=== PATIENT | male | born 1960 | race Caucasian/White ===

== ENCOUNTER 2018-02-28 01:43 | Inpatient (IN) | payer SELFPAY ==
[~2018-02-28] VITALS: Ht 172.7 cm; Wt 87.5 kg
[2018-02-28] VITALS (34 sets, daily range): BP systolic 133–194; BP diastolic 20–116; PULSE 20–176; RESP 14–29; TEMP 97.5–99.1; O2SAT 91–99
[2018-02-28] MEDS ORDERED: SODIUM CHLORIDE 0.9% FLUSH 10 ML FLUSH IV FLUSH PRN ×2 (02:00→03:30)
[2018-02-28] MEDS ORDERED: DILTIAZEM INJ 125 MG in SODIUM CHLORIDE 0.9% INJ 100 ML IV PRN (02:00)
[2018-02-28] MEDS ORDERED: SODIUM CHLORIDE 0.9% FLUSH 10 ML FLUSH IVF PRN (02:00)
[2018-02-28] MEDS ORDERED: DILTIAZEM HCL 25 MG/5 ML VIAL IV ONE (02:00)
[2018-02-28 02:13] LABS: AUTOMATED NEUTROPHIL # 6.5 TH/MM3 (1.8-7.7); BASOPHIL # 0.2 TH/MM3 (0-0.2); BASOPHIL % 1.6 % (0.0-2.0); EOSINOPHIL # 0.6 TH/MM3 (0-0.4); EOSINOPHIL % 4.9 % (0.0-4.0); HEMATOCRIT 50.8 % (39.0-51.0); HEMOGLOBIN 17.7 GM/DL (13.0-17.0); LYMPH % 37.3 % (9.0-44.0); LYMPHOCYTE # 4.8 TH/MM3 (1.0-4.8); MEAN CELL VOLUME 84.4 FL (80.0-100.0); MEAN CORPUSCULAR HEMOGLOBIN 29.4 PG (27.0-34.0); MEAN CORPUSCULAR HGB CONC 34.8 % (32.0-36.0); MEAN PLATELET VOLUME 8.5 FL (7.0-11.0); MONO % 6.1 % (0.0-8.0); MONOCYTE # 0.8 TH/MM3 (0-0.9); NEUT % 50.1 % (16.0-70.0); PLATELET COUNT 297 TH/MM3 (150-450); RED BLOOD COUNT 6.01 MIL/MM3 (4.50-5.90); RED CELL DISTRIBUTION WIDTH 13.4 % (11.6-17.2); WHITE BLOOD COUNT 12.9 TH/MM3 (4.0-11.0)
[2018-02-28] MEDS ORDERED: GLIP5 PO (02:17)
[2018-02-28] MEDS ORDERED: METF1000 PO (02:17)
[2018-02-28] MEDS ORDERED: LISI-515 PO (02:17)
[2018-02-28] MEDS ORDERED: LIPI20TA PO (02:17)
--- NOTE | 2018-02-28 02:19 | RADRPT ---
EXAM DATE/TIME: 02/28/2018 02:00 [place] COMPARISON: No previous studies available for comparison. INDICATIONS : Shortness of breath. MEDICAL HISTORY : Chronic obstructive pulmonary disease. SURGICAL HISTORY : None. ENCOUNTER: Initial ACUITY: 1 day PAIN SCORE: 4/10 LOCATION: Bilateral chest FINDINGS: Diffuse bilateral interstitial infiltrates are present. No evidence of effusion. Cardiac contours are satisfactory for technique and projection. CONCLUSION: Diffuse interstitial infiltrates David Ferrari MD on February 28, 2018 at 2:17 Board Certified Radiologist. This report was verified electronically.
[2018-02-28 02:21] LABS: CHLORIDE 100 MEQ/L (98-107); SODIUM (NA) 133 MEQ/L (136-145)
[2018-02-28 02:23] LABS: CALCIUM 9.3 MG/DL (8.5-10.1)
[2018-02-28 02:24] LABS: BICARBONATE 24.4 MEQ/L (21.0-32.0); BLOOD UREA NITROGEN 9 MG/DL (7-18); GLUCOSE,RANDOM 222 MG/DL (74-106)
[2018-02-28 02:27] LABS: CREATININE 0.95 MG/DL (0.60-1.30); GLOMERULAR FILTRATION RATE 81 ML/MIN (>89)
[2018-02-28] MEDS ORDERED: DILTIAZEM HCL 50 MG/10 ML VIAL IV PUSH ONE (02:30)
[2018-02-28 02:32] LABS: TROPONIN I 0.03 NG/ML (0.02-0.05)
[2018-02-28] MEDS ORDERED: FUROSEMIDE 40 MG/4 ML VIAL IV PUSH ONE (03:00)
[2018-02-28] MEDS ORDERED: SENNOSIDES 8.6 MG TAB PO PRN (03:30)
[2018-02-28] MEDS ORDERED: ACETAMINOPHEN 325 MG TAB PO PRN (03:30)
[2018-02-28] MEDS ORDERED: BISACODYL 10 MG SUPP RECTAL PRN (03:30)
[2018-02-28] MEDS ORDERED: LACTULOSE SYRUP 20 GM/30 ML CUP PO PRN (03:30)
[2018-02-28] MEDS ORDERED: MAGNESIUM HYDROXIDE SUSP 30 ML CUP PO PRN (03:30)
[2018-02-28] MEDS ORDERED: NALOXONE HCL 0.4 MG/ML AMP IV PUSH PRN (03:30)
[2018-02-28] MEDS ORDERED: ONDANSETRON HCL 4 MG/2 ML VIAL IVP PRN (03:30)
[2018-02-28] MEDS ORDERED: RESP: ALBUTEROL 2.5 MG/IPRATROPIUM 0.5 MG NEB (PRN) NEB (03:30)
--- NOTE | 2018-02-28 03:30 | PD ---
HPI Chief Complaint: Cardiac Complaint Time Seen by Provider: 01:52 Travel History International Travel<30 days: No Contact w/Intl Traveler<30days: No Traveled to known affect area: No History of Present Illness HPI 57-year-old male presents to the emergency department by private transportation from home after waking from sleep with shortness of breath and palpitations. Patient has history of tobacco use smokes 1 pack of cigarettes a day as well as hypertension and dyslipidemia diabetes. Patient denies any history of cardiac disease or irregular or rapid heartbeat. Patient states he has not been ill recently has had no chest pain no shortness of breath no fever no chills no cough no congestion no wheezing no abdominal pain no nausea no vomiting no diarrhea no dysuria frequency urgency hematuria lower extremity edema joint pain or swelling. Patient states no prior history of orthopnea or PND. Patient has had no recent long distance travel protracted bedrest or surgical procedure. Patient states that he felt well when he went to bed. Patient states he awakened shortness of breath with palpitations and chest discomfort. Patient states some mild chest discomfort at this time and feels very short of breath. No referred neck jaw back shoulder arm or abdominal pain. Patient denies nausea. The patient rates his discomfort as 2/10 in intensity. PFSH Past Medical History Narrative Medical Hypertension dyslipidemia diabetes tobaccoism meningitis right eye blindness; nursing notes reviewed Diabetes: Yes Patient Takes Glucophage: Yes Tetanus Vaccination: Unknown Influenza Vaccination: No Past Surgical History Surgical History: Unable to Obtain Social History Alcohol Use: No Tobacco Use: No Substance Use: No Allergies-Medications (Allergen,Severity, Reaction): Coded Allergies: No Known Allergies (Unverified , 02/28/18) Reported Meds & Prescriptions Reported Meds & Active Scripts Active Reported Lisinopril 20 Mg Tab 20 Mg PO DAILY Glucotrol (Glipizide) 5 Mg Tab 5 Mg PO TID Take 30 minutes before a meal Lipitor (Atorvastatin Calcium) 20 Mg Tab 20 Mg PO HS Metformin (Metformin HCl) 1,000 Mg Tab 1,000 Mg PO BIDPC Review of Systems Except as stated in HPI: all other systems reviewed are Neg General / Constitutional: No: Fever, Chills HENT: No: Congestion Cardiovascular: Positive: Chest Pain or Discomfort, Tachycardia, Dyspnea on exertion, No: Edema, Claudication Respiratory: Positive: Shortness of Breath Gastrointestinal: No: Nausea, Vomiting, Abdominal Pain Genitourinary: No: Dysuria Musculoskeletal: No: Myalgias, Arthralgias, Cramping, Edema, Pain Skin: No Rash Neurologic: Positive: Dizziness, No: Weakness, Syncope, Focal Abnormalities, Coordination Problem Psychiatric: Positive: Anxiety Hematologic/Lymphatic: No: Lymph Node Enlargement Physical Exam Narrative GENERAL: Well-developed well-nourished male in moderate respiratory distress. SKIN: Warm and dry. HEAD: Normocephalic. EYES: No scleral icterus. No injection or drainage. NECK: Supple, trachea midline. No JVD or lymphadenopathy. CARDIOVASCULAR: Increased irregularly irregular rate and rhythm without murmurs , gallops, or rubs. RESPIRATORY: Breath sounds equal bilaterally bilateral rales. No accessory muscle use. GASTROINTESTINAL: Abdomen soft, non-tender, nondistended. MUSCULOSKELETAL: No cyanosis, or edema. BACK: Nontender without obvious deformity. No CVA tenderness. Data Data Last Documented VS Vital Signs Date Time Temp Pulse Resp B/P (MAP) Pulse Ox O2 Delivery O2 Flow Rate FiO2 02/28/18 03:30 88 18 141/72 (95) 95 Nasal Cannula 2.00 02/28/18 02:00 99.1 02/28/18 01:55 50 Orders Orders Complete Blood Count With Diff (02/28/18 01:52) Basic Metabolic Panel (Bmp) (02/28/18 01:52) B-Type Natriuretic Peptide (02/28/18 01:52) Act Partial Throm Time (Ptt) (02/28/18 01:52) Prothrombin Time / Inr (Pt) (02/28/18 01:52) Magnesium (Mg) (02/28/18 01:52) Ckmb (Isoenzyme) Profile (02/28/18 01:52) Troponin I (02/28/18 01:52) Iv Access Insert/Monitor (02/28/18 01:52) Electrocardiogram (02/28/18 01:52) Ecg Monitoring (02/28/18 01:52) Oximetry (02/28/18 01:52) Oxygen Administration (02/28/18 01:52) Chest, Single Ap (02/28/18 01:52) Sodium Chloride 0.9% Flush (Ns Flush) (02/28/18 02:00) Diltiazem Inj (Cardizem Inj) (02/28/18 02:00) Diltiazem Inj (Cardizem Inj) (02/28/18 02:00) Sodium Chloride 0.9% Flush (Ns Flush) (02/28/18 02:00) Diltiazem Inj (Cardizem Inj) (02/28/18 02:30) CKMB (02/28/18 02:00) CKMB% (02/28/18 02:00) Furosemide Inj (Lasix Inj) (02/28/18 03:00) Place In Observation (02/28/18 ) Vital Signs (Adult) Q4H (02/28/18 03:25) Activity Oob With Assistance (02/28/18 03:25) Diet Heart Healthy (02/28/18 Breakfast) Sodium Chloride 0.9% Flush (Ns Flush) (02/28/18 03:30) Sodium Chloride 0.9% Flush (Ns Flush) (02/28/18 09:00) Acetaminophen (Tylenol) (02/28/18 03:30) Ondansetron Inj (Zofran Inj) (02/28/18 03:30) Basic Metabolic Panel (Bmp) (03/01/18 06:00) Complete Blood Count With Diff (03/01/18 06:00) Creatine Kinase (Cpk) (02/28/18 08:00) Creatine Kinase (Cpk) (02/28/18 14:00) Troponin I (02/28/18 08:00) Troponin I (02/28/18 14:00) Electrocardiogram (02/28/18 08:00) Electrocardiogram (02/28/18 14:00) Resp Oxygen Norm C Titrat 1-4 L (02/28/18 ) Heparin Inj (Heparin Inj) (02/28/18 04:00) Naloxone Inj (Narcan Inj) (02/28/18 03:30) Docusate Sodium-Senna (Annette-Colace) (02/28/18 09:00) Magnesium Hydroxide Liq (Milk Of Magnesi (02/28/18 03:30) Sennosides (Senokot) (02/28/18 03:30) Bisacodyl Supp (Dulcolax Supp) (02/28/18 03:30) Lactulose Liq (Lactulose Liq) (02/28/18 03:30) Consult Cardiology (02/28/18 ) Albuterol-Ipratropium Neb (Duoneb Neb) (02/28/18 03:30) Labs Laboratory Tests Test 02/28/18 02:00 White Blood Count 12.9 TH/MM3 Red Blood Count 6.01 MIL/MM3 Hemoglobin 17.7 GM/DL Hematocrit 50.8 % Mean Corpuscular Volume 84.4 FL Mean Corpuscular Hemoglobin 29.4 PG Mean Corpuscular Hemoglobin Concent 34.8 % Red Cell Distribution Width 13.4 % Platelet Count 297 TH/MM3 Mean Platelet Volume 8.5 FL Neutrophils (%) (Auto) 50.1 % Lymphocytes (%) (Auto) 37.3 % Monocytes (%) (Auto) 6.1 % Eosinophils (%) (Auto) 4.9 % Basophils (%) (Auto) 1.6 % Neutrophils # (Auto) 6.5 TH/MM3 Lymphocytes # (Auto) 4.8 TH/MM3 Monocytes # (Auto) 0.8 TH/MM3 Eosinophils # (Auto) 0.6 TH/MM3 Basophils # (Auto) 0.2 TH/MM3 CBC Comment DIFF FINAL Differential Comment Prothrombin Time 10.0 SEC Prothromb Time International Ratio 1.0 RATIO Activated Partial Thromboplast Time 26.3 SEC Blood Urea Nitrogen 9 MG/DL Creatinine 0.95 MG/DL Random Glucose 222 MG/DL Calcium Level 9.3 MG/DL Magnesium Level 2.0 MG/DL Sodium Level 133 MEQ/L Potassium Level 3.5 MEQ/L Chloride Level 100 MEQ/L Carbon Dioxide Level 24.4 MEQ/L Anion Gap 9 MEQ/L Estimat Glomerular Filtration Rate 81 ML/MIN Total Creatine Kinase 127 U/L Creatine Kinase MB 1.0 NG/ML Troponin I 0.03 NG/ML B-Type Natriuretic Peptide 303 PG/ML MDM Medical Decision Making Medical Screen Exam Complete: Yes Emergency Medical Condition: Yes Medical Record Reviewed: Yes Interpretation(s) EKG: Atrial fibrillation with rapid ventricular rate [address]-T changes no acute ST elevation EKG post Cardizem: Normal sinus rhythm rate [address] elevation nonspecific ST flattening Last Impressions Chest X-Ray 02/28/18 0152 Signed Impressions: Service Date/Time: Wednesday, February 28, 2018 02:00 - CONCLUSION: Diffuse interstitial infiltrates David Ferrari MD CBC & BMP Diagram 02/28/18 02:00 Calcium Level 9.3, Magnesium Level 2.0 Vital Signs Date Time Temp Pulse Resp B/P (MAP) Pulse Ox O2 Delivery O2 Flow Rate FiO2 02/28/18 02:48 100 20 185/87 (119) 93 Venturi Mask 02/28/18 02:33 97 20 158/94 (115) 93 Venturi Mask 02/28/18 02:30 20 92 Venturi Mask 02/28/18 02:18 108 20 179/102 (127) 92 Venturi Mask 02/28/18 02:12 92 Venturi Mask 02/28/18 02:12 148 160/116 02/28/18 02:12 20 92 Venturi Mask 02/28/18 02:09 140 20 160/116 (131) 91 Venturi Mask 02/28/18 02:00 99.1 176 22 194/100 (131) 91 02/28/18 01:55 92 Venturi Mask 6.00 50 Troponin I: 0.03 within normal range; CK: 127, within normal limits; BNP: 303, elevated Differential Diagnosis Dyspnea, arrhythmia, atrial fibrillation with RVR, ACS, AK, CHF, COPD, PE, pneumonia, electrolyte disturbance, sepsis Narrative Course Patient placed on supervisor coke handling with continuous pulse oximetry supplemental oxygen administered patient identified to be in atrial fibrillation with rapid ventricular response vagal maneuvers attempted without success patient after IV access obtained administered Cardizem 20 mg IV and 5 mg/h Cardizem infusion initiated lung sounds with crackles and possible fibrotic changes but no expiratory wheezes noted chest x-ray reveals extensive interstitial changes patient given one-time dose of Lasix 40 mg IV with good urine output Patient converted to normal sinus rhythm while on Cardizem infusion CK total 0.03, not elevated BNP mildly elevated at 303 Patient admitted to [facility] service Physician Communication Physician Communication admitted by Dr Pereira Diagnosis Primary Impression: Atrial fibrillation with RVR Additional Impressions: COPD (chronic obstructive pulmonary disease) Qualified Codes: J44.9 - Chronic obstructive pulmonary disease, unspecified CHF (congestive heart failure) Qualified Codes: I50.9 - Heart failure, unspecified Diabetes Admitting Information Admitting Physician Requests: Admit Radhika Murrieta MD Feb 28, 2018 03:30
[2018-02-28] MEDS: HEPARIN SODIUM - SQ 10,000 UNITS/ML VIAL SQ SCH ×2 (04:28→11:15)
--- NOTE | 2018-02-28 07:38 | EKG ---
Date Performed: 02/28/2018 Time Performed: 02:57:21 PTAGE: 57 years EKG: Sinus rhythm BORDERLINE LEFT AXIS DEVIATION POSSIBLE RIGHT VENTRICULAR CONDUCTION DELAY BORDERLINE ECG NO PREVIOUS TRACING DOCTOR: Geovani Cazares Interpretating Date/Time 02/28/2018 07:36:37
--- NOTE | 2018-02-28 07:39 | EKG ---
Date Performed: 02/28/2018 Time Performed: 01:52:54 PTAGE: 57 years EKG: ATRIAL FIBRILLATION WITH RAPID VENTRICULAR RESPONSE MARKED LEFT AXIS DEVIATION INCOMPLETE R IGHT BUNDLE BRANCH BLOCK SEPTAL MYOCARDIAL INFARCTION ST DEPRESSION, CONSIDER SUBENDOCARDIAL INJURY A BNORMAL ECG NO PREVIOUS TRACING DOCTOR: Geovani Cazares Interpretating Date/Time 02/28/2018 07:38:16
--- NOTE | 2018-02-28 08:15 | MB ---
cc: Singh Serna MD DATE: 02/28/2018 REASON FOR CONSULTATION: New onset atrial fibrillation. HISTORY OF PRESENT ILLNESS: The patient is a very pleasant 57-year-old gentleman with a history of hypertension, diabetes, tobacco abuse, and obesity, who presents with fairly acute shortness of breath. He says he woke up last night and could not breathe and he presented to the emergency department and was found to be in rapid atrial fibrillation. He also said he had a slight central chest discomfort at that time. In the emergency department, he had an atrial fibrillation at a rate of about 170, was started on a Cardizem drip and then admitted to the ICU. He has since converted to sinus rhythm and he says he feels much better. He has no residual chest discomfort. His shortness of breath has improved, although he still is on nasal cannula for oxygen. No lightheadedness, dizziness, or syncope. PAST MEDICAL HISTORY: Hypertension, hyperlipidemia and diabetes. CURRENT MEDICATIONS: Cardizem drip. ALLERGIES: NO KNOWN DRUG ALLERGIES. PHYSICAL EXAMINATION: VITAL SIGNS: Afebrile, pulse 78, respiratory rate 21, BP 139/89, saturating 97%. GENERAL: This is a pleasant gentleman in no distress. NECK: No JVD. LUNGS: Significantly decreased breath sounds in all campos. CARDIOVASCULAR: Regular rate and rhythm. A slight systolic murmur is appreciated at the apex. ABDOMEN: Benign. EXTREMITIES: No edema. LABORATORY DATA: Sodium 133, potassium 3.5, chloride 100, bicarbonate 24.4, BUN 9, creatinine 0.95, glucose 222. BNP is 303. INR is 1.0. White count 12.9, hematocrit 50.8, platelets 297. Chest x-ray shows diffuse interstitial infiltrates. Initial EKG showed atrial fibrillation at a rate of 170, with diffuse ST changes. Subsequent EKG showed sinus rhythm with resolution of previously seen ST changes. ASSESSMENT AND PLAN: New onset atrial fibrillation in a patient with risk factors. He had an episode of new onset atrial fibrillation, possibly in the setting of pneumonia given his elevated white count and chest x-ray findings. I discussed this at length with the patient and given his risk factors of hypertension and diabetes, he should be on full anticoagulation. This will be difficult given he has no insurance and has not been following up generally with healthcare providers. I will ask director of casework services to get involved and generally would start him on warfarin in this situation. Chest pain. The patient's chest pain is fairly atypical. His first set of enzymes was negative. I will have him undergo a nuclear stress test. Pneumonia. The patient has an elevated white count with some interstitial infiltrate seen on chest x-ray. We will leave the treatment of his pneumonia to the primary medical team. Further recommendations based on the clinical course. Thank you again for the opportunity to participate in this patient's care. Singh Serna MD EUGENIO/BEAU , 07:50 AM , 08:13 AM
[2018-02-28] MEDS ORDERED: SODIUM CHLORIDE 0.9% FLUSH 10 ML FLUSH IV FLUSH SCH (09:00)
[2018-02-28] MEDS: DOCUSATE SODIUM 50 MG/SENNA 8.6 MG TAB PO SCH ×2 (09:19→21:39)
[2018-02-28] MEDS: DILTIAZEM-CD 240 MG CAP ER PO SCH (09:19)
--- NOTE | 2018-02-28 09:35 | HHI.HP ---
[facility] No Primary Care Physician Admission Diagnosis afrvr; chf;copd Diagnoses: (1) Atrial fibrillation with RVR (2) CHF (congestive heart failure) (3) Diabetes (4) COPD (chronic obstructive pulmonary disease) Chief Complaint: Sudden dyspnea and chest pain Travel History International Travel<30 Days: No Contact w/Intl Traveler <30 Da: No Traveled to Known Affected Are: No History of Present Illness This is a pleasant 57-year-old male patient with a known medical history of hypertension, diabetes, dyslipidemia, tobaccoism and history of meningitis with subsequent right eye blindness who presented to the ED via private transportation with sudden dyspnea and chest pain. Patient states he woke up this morning around 0100 "gasping for air" and "could not catch his breath". Patient lives right around the [facility] and was brought here pretty quickly after episode began. Patient states that his dyspnea improved upon presentation to hospital with no recognizable alleviating factors. Patient states he did not have chest pain during episode but felt more but tightness in his midsternal chest that came and went with deep breathing. Denied any radiation of chest tightness. Denied any associated nausea, vomiting, or diaphoresis. Patient denies ever having this type of dyspnea or chest tightness in the past. Denies any recent illness including fever, chills, cough, abdominal pain, nausea, vomiting, diarrhea or dysuria. Patient does admit to smoking 1 pack per day of cigarettes since his early 20s. Patient just moved here from [place], has not established with the PCP. Does have a history of diabetes on metformin and glipizide. Review of Systems Constitutional: DENIES: Fever, Chills Eyes: COMPLAINS OF: Vision loss, DENIES: Blurred vision, Diplopia Respiratory: COMPLAINS OF: Shortness of breath, DENIES: Cough, Sputum production Cardiovascular: COMPLAINS OF: Chest pain, Palpitations Gastrointestinal: DENIES: Abdominal pain, Black stools, Bloody stools, Constipation, Diarrhea, Nausea, Vomiting Musculoskeletal: DENIES: Joint pain Hematologic/lymphatic: DENIES: Bruising Neurologic: DENIES: Abnormal gait Psychiatric: COMPLAINS OF: Anxiety Except as stated in HPI: all other systems reviewed are Neg Past Family Social History Past Medical History Diabetes Hyperlipidemia Hypertension Tobacco is a History of meningitis with subsequent right eye blindness Past Surgical History History of brain surgery 2 for bacterial meningitis in 1989 Reported Medications Active Reported Lisinopril 20 Mg Tab 20 Mg PO DAILY Glucotrol (Glipizide) 5 Mg Tab 5 Mg PO TID Take 30 minutes before a meal Lipitor (Atorvastatin Calcium) 20 Mg Tab 20 Mg PO HS Metformin (Metformin HCl) 1,000 Mg Tab 1,000 Mg PO BIDPC Allergies: Coded Allergies: No Known Allergies (Unverified , 02/28/18) Active Ordered Medications Current Medications Medications (Trade) Dose Ordered Sig/Froylan Route Start Time Stop Time Status Last Admin (NS Flush) 2 ml UNSCH PRN IV FLUSH 02/28/18 03:30 (NS Flush) 2 ml BID IV FLUSH 02/28/18 09:00 02/28/18 09:20 (Tylenol) 650 mg Q4H PRN PO 02/28/18 03:30 (Zofran Inj) 4 mg Q6H PRN IVP 02/28/18 03:30 (Heparin Inj) 5,000 units Q8H SQ 02/28/18 04:00 02/28/18 11:15 (Narcan Inj) 0.4 mg UNSCH PRN IV PUSH 02/28/18 03:30 (Annette-Colace) 1 tab BID PO 02/28/18 09:00 02/28/18 09:19 (Milk Of Magnesia Liq) 30 ml Q12H PRN PO 02/28/18 03:30 (Senokot) 17.2 mg Q12H PRN PO 02/28/18 03:30 (Dulcolax Supp) 10 mg DAILY PRN RECTAL 02/28/18 03:30 (Lactulose Liq) 30 ml DAILY PRN PO 02/28/18 03:30 (Duoneb Neb) 1 ampule Q4HR NEB PRN NEB 02/28/18 03:30 (Pneumovax-23 Inj) 25 mcg ONCE ONCE IM 03/01/18 09:00 03/01/18 09:01 (Flu (Quadrivalent) Vaccine Inj) 0.5 ml ONCE ONCE IM 03/01/18 09:00 03/01/18 09:01 (Cardizem Cd) 240 mg DAILY PO 02/28/18 09:00 02/28/18 09:19 Pharmacy Profile Note 0 ml @ 0 mls/hr UNSCH OTHER 02/28/18 08:00 (Coumadin) 5 mg DAILY@1600 PO 02/28/18 16:00 (Coumadin Booklet) 1 ONCE ONCE .XX 02/28/18 16:00 02/28/18 16:01 Ceftriaxone Sodium 1000 mg/ Sodium Chloride 100 ml @ 200 mls/hr Q24H IV 02/28/18 10:00 02/28/18 11:09 (Zithromax) 500 mg DAILY PO 02/28/18 10:00 02/28/18 11:09 Family History Family history significant for lymphoma on maternal side. Father had COPD. No history of cardiovascular disease. Social History Patient does admit to smoking 1 pack per day since his early 20s. Denies any alcohol or illicit drug use. Physical Exam Vital Signs Vital Signs Date Time Temp Pulse Resp B/P (MAP) Pulse Ox O2 Delivery O2 Flow Rate FiO2 02/28/18 08:37 95 Nasal Cannula 2.00 02/28/18 06:16 78 21 139/89 (106) 97 02/28/18 06:16 78 02/28/18 06:01 78 02/28/18 06:01 78 21 145/85 (105) 96 02/28/18 06:00 74 02/28/18 05:46 98.8 95 24 141/80 (100) 99 02/28/18 05:45 74 02/28/18 04:47 02/28/18 04:00 96 Nasal Cannula 2.00 02/28/18 04:00 92 18 133/76 (95) 96 Nasal Cannula 2.00 02/28/18 03:30 88 18 141/72 (95) 95 Nasal Cannula 2.00 02/28/18 02:48 100 20 185/87 (119) 93 Venturi Mask 02/28/18 02:33 97 20 158/94 (115) 93 Venturi Mask 02/28/18 02:30 20 92 Venturi Mask 02/28/18 02:18 108 20 179/102 (127) 92 Venturi Mask 02/28/18 02:12 92 Venturi Mask 02/28/18 02:12 148 160/116 02/28/18 02:12 20 92 Venturi Mask 02/28/18 02:09 140 20 160/116 (131) 91 Venturi Mask 02/28/18 02:00 99.1 176 22 194/100 (131) 91 02/28/18 01:55 92 Venturi Mask 6.00 50 Physical Exam GENERAL: Well-developed, well-nourished patient in NAD. SKIN: Warm and dry. No rash. HEAD: Normocephalic. Atraumatic. EYES: Right eye chronic blindness. ENT: No nasal bleeding or discharge. Mucous membranes pink and moist. NECK: Supple. Trachea midline. CARDIOVASCULAR: Regular rate and rhythm. S1, S2 noted. No murmur appreciated. No chest pain to palpation. RESPIRATORY: No accessory muscle use. Clear to auscultation. Breath sounds equal bilaterally. GASTROINTESTINAL: Abdomen soft, non-tender, nondistended. Normoactive bowel sounds x4. MUSCULOSKELETAL: No obvious deformities. Extremities without clubbing, cyanosis , or edema. NEUROLOGICAL: Awake and alert. No obvious cranial nerve deficits. Motor grossly within normal limits. 5/5 muscle strength in bilateral upper and lower extremities. Normal speech. PSYCHIATRIC: Appropriate mood and affect; insight and judgment normal. Laboratory Laboratory Tests Test 02/28/18 02:00 02/28/18 09:00 White Blood Count 12.9 Red Blood Count 6.01 Hemoglobin 17.7 Hematocrit 50.8 Mean Corpuscular Volume 84.4 Mean Corpuscular Hemoglobin 29.4 Mean Corpuscular Hemoglobin Concent 34.8 Red Cell Distribution Width 13.4 Platelet Count 297 Mean Platelet Volume 8.5 Neutrophils (%) (Auto) 50.1 Lymphocytes (%) (Auto) 37.3 Monocytes (%) (Auto) 6.1 Eosinophils (%) (Auto) 4.9 Basophils (%) (Auto) 1.6 Neutrophils # (Auto) 6.5 Lymphocytes # (Auto) 4.8 Monocytes # (Auto) 0.8 Eosinophils # (Auto) 0.6 Basophils # (Auto) 0.2 CBC Comment DIFF FINAL Differential Comment Prothrombin Time 10.0 Prothromb Time International Ratio 1.0 Activated Partial Thromboplast Time 26.3 Blood Urea Nitrogen 9 Creatinine 0.95 Random Glucose 222 Calcium Level 9.3 Magnesium Level 2.0 Sodium Level 133 Potassium Level 3.5 Chloride Level 100 Carbon Dioxide Level 24.4 Anion Gap 9 Estimat Glomerular Filtration Rate 81 Total Creatine Kinase 127 Creatine Kinase MB 1.0 Troponin I 0.03 B-Type Natriuretic Peptide 303 Result Diagram: 02/28/1819902/28/18199 Imaging Last Impressions Chest X-Ray 02/28/18151 Signed Impressions: Service Date/Time: Wednesday, February 28, 2018 02:00 - CONCLUSION: Diffuse interstitial infiltrates David Ferrari MD Septic Shock Reassessment Septic shock perfusion: reassessment completed Caprini VTE Risk Assessment Caprini VTE Risk Assessment: No/Low Risk (score <= 1) Caprini Risk Assessment Model Point Value = 1 Point Value = 2 Point Value = 3 Point Value = 5 Age 41-60 Minor surgery BMI > 25 kg/m2 Swollen legs Varicose veins or History of unexplained or recurrent spontaneous Oral contraceptives or hormone replacement Sepsis (< 1 month) Serious lung disease, including pneumonia (< 1 month) Abnormal pulmonary function Acute myocardial infarction Congestive heart failure (< 1 month) History of inflammatory bowel disease Medical patient at bed rest Age 61-74 Arthroscopic surgery Major open surgery (> 45 min) Laparoscopic surgery (> 45 min) Malignancy Confined to bed (> 72 hours) Immobilizing plaster cast Central venous access Age >= 75 History of VTE Family history of VTE Factor V Leiden Prothrombin [id number] Lupus anticoagulant Anticardiolipin antibodies Elevated serum homocysteine Heparin-induced thrombocytopenia Other congenital or acquired thrombophilia Stroke (< 1 month) Elective arthroplasty Hip, pelvis, or leg fracture Acute spinal cord injury (< 1 month) Prophylaxis Regimen Total Risk Factor Score Risk Level Prophylaxis Regimen 0-1 Low Early ambulation 2 Moderate Order ONE of the following: *Sequential Compression Device (SCD) *Heparin 5000 units SQ BID 3-4 Higher Order ONE of the following medications: *Heparin 5000 units SQ TID *Enoxaparin/Lovenox 40 mg SQ daily (WT < 150 kg, CrCl > 30 mL/min) *Enoxaparin/Lovenox 30 mg SQ daily (WT < 150 kg, CrCl > 10-29 mL/min) *Enoxaparin/Lovenox 30 mg SQ BID (WT < 150 kg, CrCl > 30 mL/min) AND/OR *Sequential Compression Device (SCD) 5 or more Highest Order ONE of the following medications: *Heparin 5000 units SQ TID (Preferred with Epidurals) *Enoxaparin/Lovenox 40 mg SQ daily (WT < 150 kg, CrCl > 30 mL/min) *Enoxaparin/Lovenox 30 mg SQ daily (WT < 150 kg, CrCl > 10-29 mL/min) *Enoxaparin/Lovenox 30 mg SQ BID (WT < 150 kg, CrCl > 30 mL/min) AND *Sequential Compression Device (SCD) Assessment and Plan Problem List: (1) Atrial fibrillation with RVR ICD Code: I48.91 - Unspecified atrial fibrillation Status: Acute (2) CHF (congestive heart failure) ICD Code: I50.9 - Heart failure, unspecified Status: Acute (3) Diabetes ICD Code: E11.9 - Type 2 diabetes mellitus without complications Status: Acute (4) COPD (chronic obstructive pulmonary disease) ICD Code: J44.9 - Chronic obstructive pulmonary disease, unspecified Status: Acute Assessment and Plan This is a pleasant 57-year-old male patient with a known medical history of hypertension, diabetes, dyslipidemia, tobaccoism and history of meningitis with subsequent right eye blindness who presented to the ED via private transportation with sudden dyspnea and chest pain upon awakening this morning. Atrial fibrillation with rapid ventricular response with associated dyspnea and chest pain - EKG upon presentation showing A. fib RVR. Was given Cardizem IV push 2. Was placed on a Cardizem drip. At the time of assessment patient is in normal sinus rhythm, no complaints of dyspnea or chest pain and now on p.o. Cardizem. -Cardiology was consulted, appreciate input and recommendations. Initial troponin 0.03. Second troponin drawn, now 2.8. STAT transfer [facility] to undergo cardiac catheterization with Dr. Serna. - Will be placed on heparin drip per protocol with MA bolus. Cardiology initially placed patient on Coumadin, will hold at this time. - Continue cardiac telemetry, monitor for any further arrhythmias. - Keep n.p.o. for now until after cardiac catheterization. - Further hospitalization and treatment plan will depend on findings be a cardiac catheterization. We will continue to follow clinically. Community acquired pneumonia - Chest x-ray reviewed showing diffuse interstitial infiltrates. Started on ceftriaxone and azithromycin. - Monitor for infection. Afebrile since presentation. Mild leukocytosis, white blood cell 12.9. Follow CBC. BMP reviewed essentially unremarkable. - Supplemental O2 as needed, keep sats above 92%. Currently on 2LNC. Continue to monitor. Congestive heart failure, unspecified. - Patient is from [place]. No prior records. Echocardiogram ordered, pending. Follow. Patient is also undergoing cardiac cath today. - BNP 303 on presentation. Was given Lasix x 1 in ED. - Monitor intake and output. Negative fluid balance at this time. Will await cardiology recs for diuretics if needed depending on ECHO. Type 2 diabetes mellitus, chronic: Accu-Chek before meals at bedtime, sliding scale, cover as needed. Monitor BGM trends. Hemoglobin a1c pending. Will add lipid panel. Hypertension, chronic: Continue home JOLANTA inhibitor. Monitor BP trends. COPD not in exacerbation Tobaccoism - Duonebs as needed for wheezing. - Encouraged cessation. Nicotine patch offered. DVT prophylaxis: Heparin drip. Problem Qualifiers (1) CHF (congestive heart failure): Qualified Codes: I50.9 - Heart failure, unspecified (2) COPD (chronic obstructive pulmonary disease): Qualified Codes: J44.9 - Chronic obstructive pulmonary disease, unspecified Gabrielle Berg Feb 28, 2018 09:35
[2018-02-28] MEDS: cefTRIAXone INJ 1,000 MG in SODIUM CHLORIDE 0.9% INJ 100 ML IV SCH (11:09)
[2018-02-28] MEDS: AZITHROMYCIN 250 MG TAB PO SCH (11:09)
[2018-02-28 11:13] LABS: TROPONIN I 2.84 NG/ML (0.02-0.05)
[2018-02-28] MEDS ORDERED: DEXTROSE 50% IN WATER 50 ML VIAL(D50) IV PUSH PRN (11:45)
[2018-02-28] MEDS ORDERED: GLUCAGON 1 MG/ML VIAL OTHER PRN (11:45)
[2018-02-28] MEDS ORDERED: HEPARIN SODIUM - IV 10,000 UNITS/10 ML VIAL IV PUSH ONE (12:00)
[2018-02-28] MEDS: INSULIN ASPART SUPPLEMENTAL SCALE SQ SCH ×3 (12:00→21:00)
--- NOTE | 2018-02-28 12:33 | ECHRPT ---
Indication: A-Fib CONCLUSIONS The left ventricular systolic function is normal with an estimated ejection fraction in the range of 60-65% Normal left ventricular size. Wall thickness is normal. No regional wall motion abnormalities are present. Mild mitral valve regurgitation. Diffuse calcification of the aortic valve. Trace aortic valve regurgitation. The pulmonary valve is not well visualized. BP: 139 / 89 HR: 106 Rhythm: Sinus MEASUREMENTS (Male / Female) Normal Values Technical Quality:Fair 2D ECHO LV Diastolic Diameter PLAX 6.1 cm 4.2 - 5.9 / 3.9 - 5.3 cm LV Systolic Diameter PLAX 4.2 cm IVS Diastolic Thickness 1.1 cm 0.6 - 1.0 / 0.6 - 0.9 cm LVPW Diastolic Thickness 1.1 cm 0.6 - 1.0 / 0.6 - 0.9 cm LV Relative Wall Thickness 0.3 RV Internal Dim ED PLAX 2.3 cm LVOT Diameter 2.3 cm LA Systolic Diameter LX 4.0 cm 3.0 - 4.0 / 2.7 - 3.8 cm LV Ejection Fraction MOD 4C 61.7 % LV Cardiac Index MOD 4C 5846.4 cm/minm LV Ejection Fraction 4C AL 62.8 % LV Cardiac Index 4C AL 6150.0 cm/minm M-MODE Aortic Root Diameter MM 3.0 cm LA Systolic Diameter MM 4.0 cm LA Ao Ratio MM 1.3 AV Cusp Separation MM 1.4 cm DOPPLER AV Peak Velocity 151.0 cm/s AV Peak Gradient 9.1 mmHg AI Peak Velocity 291.0 cm/s AI Peak Gradient 33.9 mmHg AI Pressure Half Time 499.0 ms LVOT Peak Velocity 72.1 cm/s LVOT Peak Gradient 2.1 mmHg AV Area Cont Eq pk 2.0 cm MV Area PHT 3.3 cm Mitral E Point Velocity 107.0 cm/s Mitral A Point Velocity 92.3 cm/s Mitral E to A Ratio 1.2 LV E' Lateral Velocity 6.9 cm/s Mitral E to LV E' Lateral Ratio 15.5 LV E' Septal Velocity 5.6 cm/s Mitral E to LV E' Septal Ratio 19.2 PV Peak Velocity 85.3 cm/s PV Peak Gradient 2.9 mmHg FINDINGS LEFT VENTRICLE The left ventricular systolic function is normal with an estimated ejection fraction in the range of 60-65%. Normal left ventricular size. Wall thickness is normal. No regional wall motion abnormalities are present. RIGHT VENTRICLE Normal right ventricular size and systolic function. LEFT ATRIUM The left atrial size is normal. RIGHT ATRIUM The right atrial size is normal. ATRIAL SEPTUM Normal atrial septal thickness without atrial level shunting by limited color doppler interrogation. AORTA The aortic root and proximal ascending aorta are normal in size on limited imaging. MITRAL VALVE Structurally normal mitral valve. Mild mitral valve regurgitation. AORTIC VALVE Trileaflet aortic valve. Diffuse calcification of the aortic valve. Trace aortic valve regurgitation. TRICUSPID VALVE Structurally normal tricuspid valve. No tricuspid valve stenosis or regurgitation. PULMONARY VALVE The pulmonary valve is not well visualized. VESSELS The inferior vena cava is normal in size. PERICARDIUM No pericardial effusion. Filemon Pike MD, FACC, FSCAI (Electronically Signed) Final Date:28 February 2018 12:32
[2018-02-28 12:36] LABS: HEMOGLOBIN 15.3 GM/DL (13.0-17.0); MEAN CELL VOLUME 84.3 FL (80.0-100.0); MEAN CORPUSCULAR HGB CONC 33.3 % (32.0-36.0); MEAN PLATELET VOLUME 8.3 FL (7.0-11.0); PLATELET COUNT 267 TH/MM3 (150-450); RED BLOOD COUNT 5.45 MIL/MM3 (4.50-5.90); RED CELL DISTRIBUTION WIDTH 13.2 % (11.6-17.2); WHITE BLOOD COUNT 10.3 TH/MM3 (4.0-11.0)
[2018-02-28 12:47] LABS: PROTHROMBIN TIME - PATIENT 10.5 SEC (9.8-11.6)
--- NOTE | 2018-02-28 13:05 | EKG ---
Date Performed: 02/28/2018 Time Performed: 09:05:51 PTAGE: 57 years EKG: Sinus rhythm POSSIBLE RIGHT VENTRICULAR CONDUCTION DELAY BORDERLINE ECG PREVIOUS TRACING : 02/28/2018 02.57 DOCTOR: Geovani Cazares Interpretating Date/Time 02/28/2018 13:02:48
[2018-02-28] MEDS: HEPARIN-D5W 25,000 U/250 ML 250 ML IV PRN (14:21)
[2018-02-28 14:56] LABS: CHOLESTEROL 237 MG/DL (120-200); TRIGLYCERIDES 296 MG/DL (42-150)
[2018-02-28 14:59] LABS: CHOLESTEROL/ HDL RATIO 8.28 RATIO; HDL CHOLESTEROL 28.6 MG/DL (40.0-60.0); LDL CHOLESTEROL 149 MG/DL (0-99)
[2018-02-28] MEDS ORDERED: DIAZEPAM 5 MG TAB PO SCH (15:00)
[2018-02-28] MEDS ORDERED: SODIUM CHLOR 0.9% 1000 ML INJ 1,000 ML IV SCH (15:00)
[2018-02-28] MEDS ORDERED: diphenhydrAMINE HCL 50 MG CAP PO SCH (15:00)
[2018-02-28] MEDS ORDERED: WARFARIN SOD 5 MG TAB PO SCH (16:00)
[2018-02-28] MEDS ORDERED: HEPARIN SODIUM - IV 10,000 UNITS/10 ML VIAL IV PUSH PRN (17:45)
[2018-02-28] MEDS: NITROGLYCERIN 2% OINT 1 GM PACKET TOPICAL SCH (18:00)
[2018-02-28] MEDS ORDERED: LABETALOL HCL 100 MG/20 ML VIAL IV PUSH PRN (19:45)
[2018-02-28 20:45] LABS: HEMOGLOBIN A1C 8.5 % (4.3-6.0)
[2018-02-28] MEDS: ATORVASTATIN 20 MG TAB PO SCH (21:39)
[2018-02-28 22:34] LABS: TROPONIN I 1.77 NG/ML (0.02-0.05)
[2018-02-28] MEDS: HEPARIN SODIUM - IV 10,000 UNITS/10 ML VIAL IV PUSH PRN (22:41)
[2018-03-01] VITALS (29 sets, daily range): BP systolic 113–158; BP diastolic 64–97; PULSE 68–95; RESP 18; TEMP 98–98.4; O2SAT 94–100
[2018-03-01] MEDS: NITROGLYCERIN 2% OINT 1 GM PACKET TOPICAL SCH ×5 (00:23→23:45)
[2018-03-01 06:57] LABS: PROTHROMBIN TIME - PATIENT 10.6 SEC (9.8-11.6)
[2018-03-01 07:05] LABS: AUTOMATED NEUTROPHIL # 5.7 TH/MM3 (1.8-7.7); BASOPHIL # 0.1 TH/MM3 (0-0.2); BASOPHIL % 1.4 % (0.0-2.0); EOSINOPHIL # 0.5 TH/MM3 (0-0.4); EOSINOPHIL % 5.1 % (0.0-4.0); HEMATOCRIT 44.9 % (39.0-51.0); HEMOGLOBIN 15.9 GM/DL (13.0-17.0); LYMPH % 30.6 % (9.0-44.0); LYMPHOCYTE # 3.1 TH/MM3 (1.0-4.8); MEAN CELL VOLUME 82.4 FL (80.0-100.0); MEAN CORPUSCULAR HEMOGLOBIN 29.2 PG (27.0-34.0); MEAN CORPUSCULAR HGB CONC 35.4 % (32.0-36.0); MEAN PLATELET VOLUME 8.4 FL (7.0-11.0); MONO % 5.7 % (0.0-8.0); MONOCYTE # 0.6 TH/MM3 (0-0.9); NEUT % 57.2 % (16.0-70.0); PLATELET COUNT 252 TH/MM3 (150-450); RED BLOOD COUNT 5.46 MIL/MM3 (4.50-5.90); RED CELL DISTRIBUTION WIDTH 13.9 % (11.6-17.2)
[2018-03-01] MEDS ORDERED: HEPARIN-NS/PF FLUSH BAG 2,000 ML IV FLUSH ONE (07:13)
[2018-03-01 07:21] LABS: BICARBONATE 25.1 MEQ/L (21.0-32.0); CALCIUM 8.9 MG/DL (8.5-10.1); CREATININE 0.92 MG/DL (0.60-1.30)
[2018-03-01] MEDS ORDERED: MIDAZOLAM HCL 2 MG/2 ML VIAL ONE (07:21)
[2018-03-01] MEDS ORDERED: HEPARIN SODIUM - IV 10,000 UNITS/10 ML VIAL ONE (07:29)
[2018-03-01] MEDS ORDERED: NITROGLYCERIN INJ 5 ML ONE (07:29)
[2018-03-01] MEDS ORDERED: VERAPAMIL HCL 5 MG/2 ML VIAL ONE (07:29)
[2018-03-01] MEDS ORDERED: LIDOCAINE HCL 1% PF 30 ML VIAL ONE (07:32)
[2018-03-01] MEDS: INSULIN ASPART SUPPLEMENTAL SCALE SQ SCH ×4 (08:00→20:10)
[2018-03-01] MEDS ORDERED: SODIUM CHLOR 0.9% 1000 ML INJ 1,000 ML IV SCH (08:27)
[2018-03-01] MEDS ORDERED: SODIUM CHLORIDE 0.9% FLUSH 10 ML FLUSH IV FLUSH PRN ×2 (08:30→11:00)
[2018-03-01] MEDS ORDERED: MISC INFORMATION XX ONE (08:30)
[2018-03-01] MEDS ORDERED: BACITRACIN OINT 0.9 GM PKT TOP ONE (08:30)
[2018-03-01] MEDS: DILTIAZEM-CD 240 MG CAP ER PO SCH (08:39)
--- NOTE | 2018-03-01 08:39 | CATHPROC ---
I'mOK HIS Report Study Information Study Number Admission Scheduled Start Study Start [id number] Feb 28 2018 12:11PM 03/01/2018 Mar 01 2018 7:24AM [facility] Service Cardiac Catheterization Admit Source Facility Department Emergency department [facility] - Loader Operator Physician and Clinical Staff Initial Teja Lroenz Procurement Professional Mary Jeong,MARÍA Recorder Lilliana Caballero,BERNADETTE TECH2 Scrub Lisa Dickerson,RT(R) (BS) Procedures Performed Procedure Location (Site) Vessel Name Angiogram LV LV Ventricle Coronary Angiograms LCA Left Coronary Coronary Angiograms RCA Right Coronary Equipment Time Supervisor Cellars Description Size Mfg Part Number Used/Scraped TRANSDUCER, TRUWAVE [id number] 07:48 ESTEBAN CALHOUN * Used W/STOCKCOCK *[id number] *[id number] 07:48 MALLINCKRODT SYRINGE, ANGIOMAT 150ML 150ML *[id number] Used 2SUB [id number] 07:48 [employer]media PACK, CCL CUSTOM * Used *[id number] 07:48 [employer] SUPPORT, ARTERIAL ADULT 65124 *[id number] Used [id number] 07:48 [employer] PACER PEN, SKIN DUAL W/ RULER * Used *[id number] BAND, RADIAL COMPRESSION TR [id number] 08:21 [employer] MEDICAL 24CM Used SHORT 24 *[id number] 07:48 [employer] WIRE, EXCHANGE 260CM 3MMJ 260CM Used *[id number] 07:48 NAMIC MANIFOLD, 4 PORT * Used *[id number] 07:48 NYCOMED OMNIPAQUE, 350 MG, 100ML 100ML [id number] Used [id number] 07:48 [employer] BLANKET,WARM AIR CCL * Used *[id number] 07:48 [employer] JELCO NEEDLE 4056 *[id number] Used CATHETER, FR5 OPTITORQUE [id number] 07:46 TERUMO MEDICAL FR 5 Used RADIAL TIG 4.0 *[id number] SHEATH, FR6 TRANSRADIAL RM*[id number] 07:48 [employer] MEDICAL FR 6 Used SLENDER 10CM *[id number] History: Current Medications Medication Dosage/Unit Route Frequency Last Date/Time Taken Glucophage LISINOPRIL Glypizide LIPITOR History: Allergies Allergy Reaction No Known Allergies History: Risk Factors Family History of Hypertension Dyslipidemia Previous IL Previous Heart Failure Premature CAD Yes Yes No No No Prior Valve Prior PCI Prior CABG Surgery No No No Cerebrovascular Peripheral Artery Chronic Lung On Dialysis Diabetes Diabetes Therapy Disease Disease Disease No No No No Yes Oral History: Symptoms/Diagnosis Selection Items Chest pain Palpitations SOB History: Stress Tests Stress or Imaging Studies Performed No History: Other Current Smoker Method Packs a Day Years Used Pack Years Yes Cigarettes 1 35 35 Labs Hgb (g/dl) Hct (%) WBC (l/cumm) Platelets (thousands) 11.60-17.00 35.00-51.00 4.00-11.00 150.00-450.00 15.9 44.9 10 252 Glucose (mg/dl) BUN (mg/dl) Creatinine (mg/dl) BUN:Creatinine (1:x) 74.00-106.00 7.00-18.00 0.50-1.30 10.00-20.00 201 10 0.9 11.1 Na (meq/l) K (meq/l) Cl (meq/l) CO2 (mmol/L) Ca (mg/dl) 136.00-145.00 3.50-5.10 98.00-107.00 21.00-32.00 8.50-10.10 138 3.2 103 25.1 8.9 PT (sec) PTT (sec) INR (PTT:PT) 9.80-11.60 24.30-30.10 0.90-1.10 10.6 31.3 1 Troponin I (ng/ml) CPK (u/l) CPK-MB (ng/ML) 0.02-0.05 26.00-308.00 0.50-3.60 1.77 122 1.0 Medication Medication Total Dose (Bolus/Oral) Medication Total Dosage/Unit 1% XYLOCAINE 10 mL RADIAL COCKTAIL 5 mL (Bolus) VERSED 1 mg Medications (Bolus/Oral) Medication Time Given Dosage/Unit Administered By Reason VERSED 03/01/2018 7:45:18 AM 1 mg Mary Jeong 1 mg VERSED given in lab by Mary Jeong, RN in Left Antecubital via Peripheral IV. Ordered by Teja Mazariegos. 1% XYLOCAINE 03/01/2018 7:46:00 AM 10 mL Teja Grant 10 mL 1% XYLOCAINE given in lab by Teja Grant in Right Radial via Subcutaneous. Ntg 200mcg Verapamil 2.5mg Heparin RADIAL COCKTAIL 03/01/2018 7:48:18 AM 5 mL (Bolus) Teja Grant 2500U 5 mL (Bolus) RADIAL COCKTAIL given in lab by Teja Grant in Right Radial via Radial. Using [Solutio n Name]. Reason: Ntg 200mcg Verapamil 2.5mg Heparin 2500U. Medication (Drip) Medication Time Given Dosage/Unit Concentration/Unit Diluent (ml) Solution IV Solutions 03/01/2018 7:29:55 AM 0 mL (IV) 500 NaCl .9 Patient arrived on IV Solutions in Left Antecubital via Peripheral IV. Pump/Drip Flow = 20 ml/hr usin g NaCl .9. Initial Case Assessment Cardiovascular HR Rhythm NIBP Chest Pain 79 nsr 144/83 0 Edema Present Skin color Skin None Normal Warm Dry Circulatory - Right Pulses Dorsalis Pedis Femoral Radial 2 2 2 Scale (0,1,2,3,4,d) Circulatory - Left Pulses Dorsalis Pedis Femoral Radial 2 2 Scale (0,1,2,3,4,d) Neurological State Oriented to time-place- Alert Moves all extremities person Respiration - General Respiration Rate SpO2 (%) (B/min) 15 99 Final Case Assessment Cardiovascular HR Rhythm NIBP Chest Pain 79 sr 140/81 0 Circulatory - Right Pulses Dorsalis Pedis Femoral Radial 2 2 2 Scale (0,1,2,3,4,d) Circulatory - Left Pulses Dorsalis Pedis Femoral Radial 2 Scale (0,1,2,3,4,d) Neurological State Oriented to time-place- Alert Moves all extremities person Respiration - General Respiration Rate SpO2 (%) (B/min) 18 92 Chronological Log Time Study Chronological Log 7:26:32 Patient arrived via Bed. 7:26:35 Patient Name, D.O.B, / Armband Verified By R.N. 7:26:38 Consent signed by the physician and the patient and verified by the Loader Operator staff. 7:29:42 Pre-op and post- op instructions given; patient acknowledges understanding of instructions. 7:29:42 Verbal Stimulation=2 Physical Stimulation=2 Airway=2 Respiration=2 TOTAL=8. (0=absent, 1=caldwell ited, 2=present) 7:29:43 Presedation assessment performed by Loader Operator RN. 7:29:44 Allens test performed on the right radial and ulnar artery. POSITIVE. 7:29:50 Immediate Presedation assesment performed by physician. 7::51 Patient has been NPO for More than 6Hrs. 7::51 Skin Breakdown- none per patient 7::52 Patient Warmer Placed on the Table. 7::53 Sherita Prominences Protected 7::54 A # 20 IV was noted in the Antecubital (right). Grade = 0 7:29:55 Patient arrived on IV Solutions in Left Antecubital via Peripheral IV. Pump/Drip Flow = 20 m l/hr using NaCl .9. 7:29:55 History and physical on the chart or being dictated. Vitals capture started with the following parameters, Patient=Adult, Interval=5 min, Initial Pre ttgcn=637 mmHg, 7:32:39 Deflation Rate=5 mmHg, Cuff placed on Unknown Assessment: Initial Case, HR=79 BPM, Rhythm=nsr, QPND=387/83 mmhg, Chest Pain=0, Edema=None, Col or=Normal, Skin = Warm, Dry Right Pulses: Serjio Ped=2, Femoral=2, Radial=2 7:32:45 Left Pulses: Serjio Ped=2, Femoral=2 Neurological: State=Alert, Ox3, KUNZ Respiration: Resp=15 B/min, SpO2=99 % 7:32:57 Reference ECG taken 7:33:17 HR=83 bpm, EFYA=409/83 mmhg, SpO2=97 %, Resp=17 B/min, Pain=0, Joy=10, Stokes=2 7:36:45 A # 20 IV was noted in the Forearm (left). Grade = 0 7:36:47 A # 18 IV was noted in the Antecubital (left). Grade = patent 7:38:14 HR=83 bpm, FPOA=896/87 mmhg, Resp=10 B/min 7:38:57 MD arrived. 7:42:56 Pressure channel 2 zeroed. 7:43:17 HR=76 bpm, VZWI=387/86 mmhg, Resp=12 B/min Time Out. Correct patient, correct procedure, correct physician, power injector loaded with cont rast with surgical team 7:44:23 present. Time Out Concurred by MD and individual staff in procedure. 7:45:18 1 mg VERSED given in lab by Mary Jeong, RN in Left Antecubital via Peripheral IV. Order ed by Teja Grant. 7:45:58 Case Start 7:46:00 10 mL 1% XYLOCAINE given in lab by Teja Grant in Right Radial via Subcutaneous. 7:47:19 Access site was Radial Artery. A SHEATH, FR6 TRANSRADIAL SLENDER 10CM FR 6 was advanced into the Radial (right) using the Cecelia garcia 7:47:34 technique. 7:48:14 HR=79 bpm, HMFD=928/86 mmhg, SpO2=92.0 %, Resp=18 B/min 5 mL (Bolus) RADIAL COCKTAIL given in lab by Teja Grant in Right Radial via Radial. Using [So lution Name]. 7:48:18 Reason: Ntg 200mcg Verapamil 2.5mg Heparin 2500U. A CATHETER, FR5 OPTITORQUE RADIAL TIG 4.0 FR 5 was advanced over a wire. OMNIPAQUE, 350 MG, 100 ML 100ML 7:50:42 was used for injections. 7:53:15 HR=86 bpm, VZFJ=442/81 mmhg, SpO2=92.0 %, Resp=18 B/min Recorded Pressure: Ao, HR=86, Condition=Condition 1 7:53:20 (Aorta) Ao 123/83/99 7:54:21 The LCA was injected and visualized at various angles. OMNIPAQUE, 350 MG, 100ML 100ML used . 7:58:14 HR=78 bpm, NFWK=589/75 mmhg, SpO2=92 %, Resp=17 B/min 8:00:47 The RCA was injected and visualized at various angles. OMNIPAQUE, 350 MG, 100ML 100ML used . After removing the current catheter a PIGTAIL ANG. INFINITI CATHETER FR 5 was advanced over a W GRACIA, EXCHANGE 8:01:57 260CM 3MMJ 260CM. 8:03:17 HR=78 bpm, TLVZ=264/77 mmhg, SpO2=93.0 %, Resp=20 B/min 8:04:31 Wire removed, catheter flushed. 8:08:16 HR=77 bpm, WCSB=557/75 mmhg, SpO2=92 %, Resp=23 B/min Recorded Pressure: LV, HR=79, Condition=Condition 1 8:09:12 (Left Ventricle) LV 145/11/21 8:10:09 The LV was injected at 10 cc/sec for a total of 40. OMNIPAQUE, 350 MG, 100ML 100ML used. Recorded Pressure: LV, Ao, HR=85, Condition=Condition 1 8:10:47 (Left Ventricle) LV 144/14/24, (Aorta) Ao 142/80/104 8:11:14 Catheter was removed 8:11:20 Wire removed 8:12:15 Case End 8:13:15 HR=79 bpm, NMWJ=960/81 mmhg, SpO2=92.0 %, Resp=18 B/min Radial Compression Device Used. 14 mLs of air placed in BAND, RADIAL COMPRESSION TR SHORT 24 24 CM. Affected 8:14:58 hand 95 % O2 saturation. 8:19:51 No case complications noted. 8:19:52 Cine recording checked. Assessment: Final Case, HR=79 BPM, Rhythm=sr, XTMH=270/81 mmhg, Chest Pain=0 Right Pulses: Serjio Ped=2, Femoral=2, Radial=2 8:21:36 Left Pulses: Serjio Ped=2 Neurological: State=Alert, Ox3, KUNZ Respiration: Resp=18 B/min, SpO2=92 % 8:22:23 Patient moved to bed. 8:24:36 Patient transported to [facility]. End Study - Contrast Media Used In Study Contrast Total Opened (mL) Total Used (mL) Total Wasted (mL) Omnipaque 130 130 0 End Study - Maximum Contrast Load Max Contrast Load (mL) 469.4 End Study - Radiation Exposure Fluoro Time (minutes) 10.4 End Study - Sheaths Sheaths Pulled By Sheath Hold Time (min) Lisa Dickerson End Study - Patient Disposition Complications Transferred To Interventional Outcome No Telemetry Bed No attempt made
[2018-03-01] MEDS: DOCUSATE SODIUM 50 MG/SENNA 8.6 MG TAB PO SCH ×2 (08:40→20:14)
[2018-03-01] MEDS: AZITHROMYCIN 250 MG TAB PO SCH (08:40)
--- NOTE | 2018-03-01 08:52 | MA ---
cc: Teja Grant MD DATE: 03/01/2018 PROCEDURES PERFORMED: Right radial arterial approach left heart catheterization, left ventriculography, and coronary angiography. DESCRIPTION OF PROCEDURE: The patient was brought to the cardiac catheterization lab in a fasting state. He received 1 mg of IV Versed for additional sedation. The right wrist was prepped and draped in sterile fashion. Using 1% lidocaine for local anesthesia, a 6 1/2-Maori sheath was placed in the right radial artery and a standard cocktail administered. Coronary angiography was then completed using a Prescott catheter. LV pressure was then measured using an angled pigtail catheter, followed by pullback. The sheath was removed with a Terumo band placed. There were no complications. FINDINGS: 1. Hemodynamics: Left ventricular pressure is 144/14 with an end diastolic pressure of 24, aortic pressure is 142/80 with a mean of 104. There was no gradient during pullback from left ventricle to the aorta. 2. Left ventriculography shows global hypokinesis, estimated ejection fraction of 40%. 3. Coronary angiography: The left main coronary artery has 10% irregularities. It bifurcates into the LAD and circumflex vessel. The LAD has a 70% stenosis before a very large arcading diagonal branch. Just past the diagonal branch is a focal 80% stenosis. The LAD is diffusely diseased and has at least 70% stenosis in its midsection. The diagonal branch is severely diffusely diseased, but has a high grade 90% proximal stenosis. Circumflex artery has a 99% stenosis before a small marginal branch. The right coronary artery is large and dominant with diffuse calcification and has an eccentric 60% mid stenosis, 40% distal stenosis and 70% diffuse PDA disease. CONCLUSIONS: 1. Impaired LV function, estimated ejection fraction of 40%. 2. Three vessel coronary artery disease. RECOMMENDATIONS Cardiothoracic surgery consult for bypass surgery. Teja Grant MD VEW/BEAU , 08:24 AM , 08:52 AM
[2018-03-01] MEDS ORDERED: PNEUMOCOCCAL POLYVALENT INJ 25 MCG/0.5 ML SYR IM ONE (09:00)
[2018-03-01] MEDS ORDERED: INFLUENZA VIRUS VACCINE (QUADRIVALENT) 0.5 ML SYR IM ONE (09:00)
[2018-03-01] MEDS ORDERED: SODIUM CHLORIDE 0.9% FLUSH 10 ML FLUSH IV FLUSH SCH (09:00)
[2018-03-01] MEDS ORDERED: LISINOPRIL 20 MG TAB PO SCH (09:00)
[2018-03-01] MEDS ORDERED: INSULIN REGULAR (IV INFUSION) 100 UNITS in SODIUM CHLORIDE 0.9% INJ 99 ML IV PRN (11:00)
[2018-03-01] MEDS ORDERED: CHLORHEXIDINE GLUCONATE 4% SOLN 120 ML BTL TOPICAL SCH (11:00)
[2018-03-01] MEDS ORDERED: CEFAZOLIN INJ 500 MG in SODIUM CHLORIDE 0.9% IRR BTL 500 ML IRRIGATION SCH (11:00)
[2018-03-01] MEDS ORDERED: METOPROLOL TARTRATE 25 MG TAB PO SCH (11:00)
[2018-03-01] MEDS ORDERED: PAPAVERINE INJ 60 MG, NITROGLYCERIN INJ 100 MCG, DILTIAZEM INJ 100 MG in SODIUM CHLORID... IRRIGATION SCH (11:00)
[2018-03-01] MEDS ORDERED: DEXTROSE 50% IN WATER 50 ML VIAL(D50) IV PUSH PRN (11:00)
[2018-03-01] MEDS: cefTRIAXone INJ 1,000 MG in SODIUM CHLORIDE 0.9% INJ 100 ML IV SCH (11:08)
[2018-03-01] MEDS: HEPARIN-D5W 25,000 U/250 ML 250 ML IV PRN (11:12)
--- NOTE | 2018-03-01 12:20 | HHI.PR ---
Subjective Remarks This is a pleasant 57-year-old male patient with a known medical history of hypertension, diabetes, dyslipidemia, tobaccoism and history of meningitis with subsequent right eye blindness who presented to the ED via private transportation with sudden dyspnea and chest pain. Patient states he woke up this morning around 0100 "gasping for air" and "could not catch his breath". Patient lives right around the [facility] and was brought here pretty quickly after episode began. Patient states that his dyspnea improved upon presentation to hospital with no recognizable alleviating factors. Patient states he did not have chest pain during episode but felt more but tightness in his midsternal chest that came and went with deep breathing. Denied any radiation of chest tightness. Denied any associated nausea, vomiting, or diaphoresis. Patient denies ever having this type of dyspnea or chest tightness in the past. Denies any recent illness including fever, chills, cough, abdominal pain, nausea, vomiting, diarrhea or dysuria. Patient does admit to smoking 1 pack per day of cigarettes since his early 20s. Patient just moved here from [place], has not established with the PCP. Does have a history of diabetes on metformin and glipizide. 4-5 artery catheterization today. Has multivessel disease. Cardiovascular surgery has been consulted regarding need for CABG. I discussed with patient and RN and case management patient states he does not need anything For his smoking issues Follow diabetes and other issues while he is here Objective Vitals Vital Signs Date Time Temp Pulse Resp B/P (MAP) Pulse Ox O2 Delivery O2 Flow Rate FiO2 03/01/18 11:45 98.0 83 18 130/81 (97) 96 03/01/18 08:45 98.2 78 18 158/90 (112) 94 03/01/18 06:00 74 03/01/18 05:00 86 03/01/18 04:00 98.3 83 18 156/97 (116) 94 03/01/18 04:00 68 03/01/18 03:00 68 03/01/18 02:00 68 03/01/18 01:00 70 03/01/18 00:00 76 03/01/18 00:00 98.0 79 18 141/79 (99) 94 02/28/18 23:00 78 02/28/18 22:00 80 02/28/18 21:27 98 2.00 02/28/18 21:00 78 02/28/18 20:00 98.8 76 20 147/20 (62) 96 02/28/18 20:00 76 02/28/18 16:00 81 16 163/90 (114) 02/28/18 15:00 76 02/28/18 15:00 76 25 142/86 (104) 02/28/18 15:00 76 02/28/18 14:00 76 21 141/76 (97) 02/28/18 14:00 76 02/28/18 13:00 76 14 152/83 (106) 02/28/18 13:00 76 I/O 02/28/18 02/28/18 02/28/18 03/01/18 03/01/18 03/01/18 07:00 15:00 23:00 07:00 15:00 23:00 Intake Total 120 ml 720 ml 480 ml 200 ml Output Total 1775 ml 1225 ml 600 ml Balance -1775 ml -1105 ml 120 ml 480 ml 200 ml Intake Oral 120 ml 720 ml 480 ml IV Total 200 ml Output Urine Total 1775 ml 1225 ml 600 ml # Voids 3 # Bowel Movements 1 Result Diagram: 03/01/18 0607 03/01/18 0607 Other Results Laboratory Tests Test 02/28/18 02:00 02/28/18 09:00 02/28/18 12:26 02/28/18 20:45 White Blood Count 12.9 TH/MM3 10.3 TH/MM3 Red Blood Count 6.01 MIL/MM3 5.45 MIL/MM3 Hemoglobin 17.7 GM/DL 15.3 GM/DL Hematocrit 50.8 % 46.0 % Mean Corpuscular Volume 84.4 FL 84.3 FL Mean Corpuscular Hemoglobin 29.4 PG 28.0 PG Mean Corpuscular Hemoglobin Concent 34.8 % 33.3 % Red Cell Distribution Width 13.4 % 13.2 % Platelet Count 297 TH/MM3 267 TH/MM3 Mean Platelet Volume 8.5 FL 8.3 FL Neutrophils (%) (Auto) 50.1 % Lymphocytes (%) (Auto) 37.3 % Monocytes (%) (Auto) 6.1 % Eosinophils (%) (Auto) 4.9 % Basophils (%) (Auto) 1.6 % Neutrophils # (Auto) 6.5 TH/MM3 Lymphocytes # (Auto) 4.8 TH/MM3 Monocytes # (Auto) 0.8 TH/MM3 Eosinophils # (Auto) 0.6 TH/MM3 Basophils # (Auto) 0.2 TH/MM3 CBC Comment DIFF FINAL Differential Comment Prothrombin Time 10.0 SEC 10.5 SEC Prothromb Time International Ratio 1.0 RATIO 1.0 RATIO Activated Partial Thromboplast Time 26.3 SEC 24.9 SEC 31.3 SEC Blood Urea Nitrogen 9 MG/DL Creatinine 0.95 MG/DL Random Glucose 222 MG/DL Calcium Level 9.3 MG/DL Magnesium Level 2.0 MG/DL Sodium Level 133 MEQ/L Potassium Level 3.5 MEQ/L Chloride Level 100 MEQ/L Carbon Dioxide Level 24.4 MEQ/L Anion Gap 9 MEQ/L Estimat Glomerular Filtration Rate 81 ML/MIN Hemoglobin A1c 8.5 % Total Creatine Kinase 127 U/L 202 U/L 122 U/L Creatine Kinase MB 1.0 NG/ML Troponin I 0.03 NG/ML 2.84 NG/ML 1.77 NG/ML B-Type Natriuretic Peptide 303 PG/ML Triglycerides Level 296 MG/DL Cholesterol Level 237 MG/DL LDL Cholesterol 149 MG/DL HDL Cholesterol 28.6 MG/DL Cholesterol/HDL Ratio 8.28 RATIO Test 03/01/18 06:07 White Blood Count 10.0 TH/MM3 Red Blood Count 5.46 MIL/MM3 Hemoglobin 15.9 GM/DL Hematocrit 44.9 % Mean Corpuscular Volume 82.4 FL Mean Corpuscular Hemoglobin 29.2 PG Mean Corpuscular Hemoglobin Concent 35.4 % Red Cell Distribution Width 13.9 % Platelet Count 252 TH/MM3 Mean Platelet Volume 8.4 FL Neutrophils (%) (Auto) 57.2 % Lymphocytes (%) (Auto) 30.6 % Monocytes (%) (Auto) 5.7 % Eosinophils (%) (Auto) 5.1 % Basophils (%) (Auto) 1.4 % Neutrophils # (Auto) 5.7 TH/MM3 Lymphocytes # (Auto) 3.1 TH/MM3 Monocytes # (Auto) 0.6 TH/MM3 Eosinophils # (Auto) 0.5 TH/MM3 Basophils # (Auto) 0.1 TH/MM3 CBC Comment DIFF FINAL Differential Comment Prothrombin Time 10.6 SEC Prothromb Time International Ratio 1.0 RATIO Blood Urea Nitrogen 10 MG/DL Creatinine 0.92 MG/DL Random Glucose 201 MG/DL Calcium Level 8.9 MG/DL Sodium Level 138 MEQ/L Potassium Level 3.2 MEQ/L Chloride Level 103 MEQ/L Carbon Dioxide Level 25.1 MEQ/L Anion Gap 10 MEQ/L Estimat Glomerular Filtration Rate 84 ML/MIN Imaging Last Impressions Chest X-Ray 02/28/18 0152 Signed Impressions: Service Date/Time: Wednesday, February 28, 2018 02:00 - CONCLUSION: Diffuse interstitial infiltrates David Ferrari MD Objective Remarks GENERAL: Awake alert oriented 3 talkative and cooperative appears stated age has already had cardiac catheterization today SKIN: Warm and dry. HEAD: Atraumatic. Normocephalic. EYES: Pupils equal and round. No scleral icterus. No injection or drainage. Extraocular muscles intact ENT: No nasal bleeding or discharge. Mucous membranes pink and moist. Tongue is midline NECK: Trachea midline. No JVD. CARDIOVASCULAR: Regular rate and rhythm. S1-S2 no S3 or S4 RESPIRATORY: No accessory muscle use. Clear to auscultation. Breath sounds equal bilaterally. GASTROINTESTINAL: Abdomen soft, non-tender, nondistended. Hepatic and splenic margins not palpable. MUSCULOSKELETAL: Extremities without clubbing, cyanosis, or edema. No obvious deformities. NEUROLOGICAL: Awake and alert. No obvious cranial nerve deficits. Motor grossly within normal limits. Five out of 5 muscle strength in the arms and legs. Normal speech. PSYCHIATRIC: Appropriate mood and affect; insight and judgment normal. Procedures 03-01-18 Right radial arterial approach left heart catheterization, left ventriculography, and coronary angiography. DESCRIPTION OF PROCEDURE: The patient was brought to the cardiac catheterization lab in a fasting state. He received 1 mg of IV Versed for additional sedation. The right wrist was prepped and draped in sterile fashion. Using 1% lidocaine for local anesthesia, a 6 1/2-Maori sheath was placed in the right radial artery and a standard cocktail administered. Coronary angiography was then completed using a [place] catheter. LV pressure was then measured using an angled pigtail catheter, followed by pullback. The sheath was removed with a Terumo band placed. There were no complications. FINDINGS: 1. Hemodynamics: Left ventricular pressure is 144/14 with an end diastolic pressure of 24, aortic pressure is 142/80 with a mean of 104. There was no gradient during pullback from left ventricle to the aorta. 2. Left ventriculography shows global hypokinesis, estimated ejection fraction of 40%. 3. Coronary angiography: The left main coronary artery has 10% irregularities. It bifurcates into the LAD and circumflex vessel. The LAD has a 70% stenosis before a very large arcading diagonal branch. Just past the diagonal branch is a focal 80% stenosis. The LAD is diffusely diseased and has at least 70% stenosis in its midsection. The diagonal branch is severely diffusely diseased, but has a high grade 90% proximal stenosis. Circumflex artery has a 99% stenosis before a small marginal branch. The right coronary artery is large and dominant with diffuse calcification and has an eccentric 60% mid stenosis, 40% distal stenosis and 70% diffuse PDA disease. CONCLUSIONS: 1. Impaired LV function, estimated ejection fraction of 40%. 2. Three vessel coronary artery disease. RECOMMENDATIONS Cardiothoracic surgery consult for bypass surgery. Medications and IVs Current Medications Sodium Chloride (NS Flush) 2 ml UNSCH PRN IVF FLUSH AFTER USING IV ACCESS; Start 02/28/18 at 02:00; Stop 02/28/18 at 03:41; Status DC Diltiazem HCl (Cardizem Inj) 20 mg ONCE ONCE IV Last administered on 02/28/18at 01:58; Start 02/28/18 at 02:00; Stop 02/28/18 at 02:01; Status DC Diltiazem HCl 125 mg/Sodium Chloride 125 ml @ 5 mls/hr TITRATE PRN IV tachycardia Last administered on 02/28/18at 02:12; Start 02/28/18 at 02:00; Stop at 07:51; Status DC Sodium Chloride (NS Flush) 2 ml UNSCH PRN IV FLUSH FLUSH AFTER USING IV ACCESS ; Start 02/28/18 at 02:00; Stop 02/28/18 at 03:41; Status DC Diltiazem HCl (Cardizem Inj) 30 mg BOLUS ONCE IV PUSH ; Start 02/28/18 at 02:30 ; Stop 02/28/18 at 02:31; Status DC Furosemide (Lasix Inj) 40 mg ONCE ONCE IV PUSH Last administered on 02/28/18at 02:57; Start 02/28/18 at 03:00; Stop 02/28/18 at 03:01; Status DC Sodium Chloride (NS Flush) 2 ml UNSCH PRN IV FLUSH FLUSH AFTER USING IV ACCESS ; Start 02/28/18 at 03:30; Stop 03/01/18 at 08:35; Status DC Sodium Chloride (NS Flush) 2 ml BID IV FLUSH Last administered on 02/28/18at 09: 20; Start 02/28/18 at 09:00; Stop 03/01/18 at 08:35; Status DC Acetaminophen (Tylenol) 650 mg Q4H PRN PO TEMP > 100.4 Last administered on 02/28at 22:43; Start 02/28/18 at 03:30 Ondansetron HCl (Zofran Inj) 4 mg Q6H PRN IVP NAUSEA OR VOMITING; Start at 03:30 Heparin Sodium (Porcine) (Heparin Inj) 5,000 units Q8H SQ Last administered on 02/28/18at 11:15; Start 02/28/18 at 04:00; Stop 02/28/18 at 12:03; Status DC Naloxone HCl (Narcan Inj) 0.4 mg UNSCH PRN IV PUSH SEE LABEL COMMENTS; Start at 03:30 Senna/Docusate Sodium (Annette-Colace) 1 tab BID PO Last administered on 03/01/18at 08:40; Start 02/28/18 at 09:00 Magnesium Hydroxide (Milk Of Magnesia Liq) 30 ml Q12H PRN PO Mild constipation ; Start 02/28/18 at 03:30 Sennosides (Senokot) 17.2 mg Q12H PRN PO Moderate constipation; Start 02/28/18 at 03:30 Bisacodyl (Dulcolax Supp) 10 mg DAILY PRN RECTAL SEVERE CONSITIPATION/ IF NPO; Start 02/28/18 at 03:30 Lactulose (Lactulose Liq) 30 ml DAILY PRN PO SEVERE CONSITIPATION/ IF PO; Start 02/28/18 at 03:30 Albuterol/ Ipratropium (Duoneb Neb) 1 ampule Q4HR NEB PRN NEB SOB/Wheezing; Start 02/28/18 at 03:30 Pneumococcal Polyvalent Vaccine (Pneumovax-23 Inj) 25 mcg ONCE ONCE IM Last administered on 03/01/18at 08:50; Start 03/01/18 at 09:00; Stop 03/01/18 at 09:01; Status DC Influenza Virus Vaccine (Flu (Quadrivalent) Vaccine Inj) 0.5 ml ONCE ONCE IM Last administered on 03/01/18at 08:51; Start 03/01/18 at 09:00; Stop 03/01/18 at 09: 01; Status DC Diltiazem HCl (Cardizem Cd) 240 mg DAILY PO Last administered on 03/01/18at 08:39 ; Start 02/28/18 at 09:00 Pharmacy Profile Note 0 ml @ 0 mls/hr UNSCH OTHER ; Start 02/28/18 at 08:00; Status Future Hold Warfarin Sodium (Coumadin) 5 mg DAILY@1600 PO ; Start 02/28/18 at 16:00; Status Future Hold Patient Medication Teaching (Coumadin Booklet) 1 ONCE ONCE .XX ; Start 02/28/18 at 16:00; Stop 02/28/18 at 16:01; Status DC Ceftriaxone Sodium 1000 mg/ Sodium Chloride 100 ml @ 200 mls/hr Q24H IV Last administered on 03/01/18at 11:08; Start 02/28/18 at 10:00 Azithromycin (Zithromax) 500 mg DAILY PO Last administered on 03/01/18at 08:40; Start 02/28/18 at 10:00 Heparin Sodium (Porcine) (Heparin Inj) 7,000 units ONCE ONCE IV PUSH Last administered on 02/28/18at 12:42; Start 02/28/18 at 12:00; Stop 02/28/18 at 12:02; Status DC Heparin Sodium (Porcine) (Heparin Inj) 5,000 units UNSCH PRN IV PUSH APTT LESS THAN 25; Start 02/28/18 at 17:45 Heparin Sodium (Porcine) (Heparin Inj) 2,500 units UNSCH PRN IV PUSH APTT 25 TO 39 Last administered on 02/28/18at 22:41; Start 02/28/18 at 17:45 Heparin Sodium/ Dextrose 250 ml @ 10 mls/hr TITRATE PRN IV Coagulation Management Last administered on 03/01/18at 11:12; Start 02/28/18 at 11:45 Dextrose (D50w (Vial) Inj) 50 ml UNSCH PRN IV PUSH HYPOGLYCEMIA-SEE COMMENTS; Start 02/28/18 at 11:45 Glucagon (Glucagon Inj) 1 mg UNSCH PRN OTHER HYPOGLYCEMIA-SEE COMMENTS; Start 02/28/18 at 11:45 Insulin Aspart (NovoLOG SUPPLEMENTAL SCALE) 1 ACHS SLIDING SCALE SQ Last administered on 03/01/18at 08:00; Start 02/28/18 at 12:00 Atorvastatin Calcium (Lipitor) 20 mg HS PO Last administered on 02/28/18at 21:39 ; Start 02/28/18 at 21:00 Lisinopril (Prinivil) 20 mg DAILY PO Last administered on 03/01/18at 08:40; Start 03/01/18 at 09:00; Status Future Hold Sodium Chloride 1,000 ml @ 100 mls/hr Q10H IV ; Start 02/28/18 at 15:00; Stop at 08:35; Status DC Diphenhydramine HCl (Benadryl) 50 mg GAS BRAZER PO ; Start 02/28/18 at 15:00; Stop 03/04/18 at 14:59 Diazepam (Valium) 5 mg GAS BRAZER PO ; Start 02/28/18 at 15:00; Stop 03/04/18 at 14: 59 Nitroglycerin (Nitroglycerin 2% Oint) 0.5 inch Q6HR TOPICAL Last administered on 03/01/18at 00:23; Start 02/28/18 at 18:00 Labetalol HCl (Trandate Inj) 10 mg Q6H PRN IV PUSH SEE LABEL COMMENTS; Start at 19:45 Heparin Sodium/ Sodium Chloride 2,000 ml @ As Directed STK-MED ONCE IV FLUSH Last administered on 03/01/18 07:13; Start 03/01/18 at 07:13; Stop 03/01/18 at 07: 14; Status DC Midazolam HCl (Versed Inj) 2 mg STK-MED ONCE .ROUTE Last administered on 07:59; Start 03/01/18 at 07:21; Stop 03/01/18 at 07:22; Status DC Verapamil HCl (Isoptin Inj) 5 mg STK-MED ONCE .ROUTE Last administered on 07:29; Start 03/01/18 at 07:29; Stop 03/01/18 at 07:30; Status DC Heparin Sodium (Porcine) (Heparin Inj) 10,000 units STK-MED ONCE .ROUTE Last administered on 03/01/18at 07:29; Start 03/01/18 at 07:29; Stop 03/01/18 at 07:30; Status DC Nitroglycerin 5 ml @ As Directed STK-MED ONCE .ROUTE Last administered on at 07:29; Start 03/01/18 at 07:29; Stop 03/01/18 at 07:30; Status DC Lidocaine HCl (Xylocaine-Mpf 1% Inj) 30 ml STK-MED ONCE .ROUTE Last administered on 03/01/18at 07:32; Start 03/01/18 at 07:32; Stop 03/01/18 at 07:33; Status DC Miscellaneous Information 1 ONCE ONCE XX ; Start 03/01/18 at 08:30; Stop at 08:33; Status DC Sodium Chloride (NS Flush) 2 ml BID IV FLUSH Last administered on 03/01/18at 08: 40; Start 03/01/18 at 09:00 Sodium Chloride (NS Flush) 2 ml UNSCH PRN IV FLUSH FLUSH AFTER USING IV ACCESS ; Start 03/01/18 at 08:30 Sodium Chloride 1,000 ml @ 100 mls/hr Q10H IV ; Start 03/01/18 at 08:27; Stop at 16:26 Bacitracin (Bacitracin Oint Packet) 0.9 gm ONCE ONCE TOP ; Start 03/01/18 at 08: 30; Stop 03/01/18 at 08:33; Status DC Sodium Chloride (NS Flush) 2 ml BID IV FLUSH ; Start 03/01/18 at 21:00; Status UNV Sodium Chloride (NS Flush) 2 ml UNSCH PRN IV FLUSH FLUSH AFTER USING IV ACCESS ; Start 03/01/18 at 11:00; Status UNV Papaverine HCl 60 mg/Nitroglycerin 100 mcg/Diltiazem HCl 100 mg/Sodium Chloride 100 ml @ 0 mls/hr GAS BRAZER IRRIGATION ; Start 03/01/18 at 11:00; Stop 03/08/18 at 10:59; Status UNV Cefazolin Sodium 500 mg/Sodium Chloride 505 ml @ 0 mls/hr GAS BRAZER IRRIGATION ; Start 03/01/18 at 11:00; Stop 03/08/18 at 10:59; Status UNV Cefazolin Sodium/ Dextrose 50 ml @ 150 mls/hr GAS BRAZER IV ; Start 03/01/18 at 11 :00; Stop 03/08/18 at 10:59; Status UNV Metoprolol Tartrate (Lopressor) 12.5 mg GAS BRAZER PO ; Start 03/01/18 at 11:00; Stop 03/08/18 at 10:59; Status UNV Chlorhexidine Gluconate (Hibiclens 4% Top Soln) 1 applic GAS BRAZER TOPICAL ; Start 03/01/18 at 11:00; Stop 03/08/18 at 10:59; Status UNV Insulin Human Regular 100 units/ Sodium Chloride 100 ml @ 3 mls/hr TITRATE PRN IV for blood glucose control; Start 03/01/18 at 11:00; Stop 03/08/18 at 10:59; Status UNV Dextrose (D50w (Vial) Inj) 50 ml UNSCH PRN IV PUSH HYPOGLYCEMIA-SEE COMMENTS; Start 03/01/18 at 11:00; Status UNV A/P Problem List: (1) Atrial fibrillation with RVR ICD Code: I48.91 - Unspecified atrial fibrillation Status: Acute (2) CHF (congestive heart failure) ICD Code: I50.9 - Heart failure, unspecified Status: Acute (3) Diabetes ICD Code: E11.9 - Type 2 diabetes mellitus without complications Status: Acute (4) COPD (chronic obstructive pulmonary disease) ICD Code: J44.9 - Chronic obstructive pulmonary disease, unspecified Status: Acute Assessment and Plan This is a pleasant 57-year-old male patient with a known medical history of hypertension, diabetes, dyslipidemia, tobaccoism and history of meningitis with subsequent right eye blindness who presented to the ED via private transportation with sudden dyspnea and chest pain upon awakening this morning. Atrial fibrillation with rapid ventricular response with associated dyspnea and chest pain - EKG upon presentation showing A. fib RVR. Was given Cardizem IV push 2. Was placed on a Cardizem drip. At the time of assessment patient is in normal sinus rhythm, no complaints of dyspnea or chest pain and now on p.o. Cardizem. -Cardiology was consulted, appreciate input and recommendations. Initial troponin 0.03. Second troponin drawn, now 2.8. STAT transfer to [facility] to undergo cardiac catheterization with Dr. Serna. Positive troponins - Will be placed on heparin drip per protocol with TN bolus. Cardiology initially placed patient on Coumadin, will hold at this time. - Continue cardiac telemetry, monitor for any further arrhythmias. - Keep n.p.o. for now until after cardiac catheterization. - Further hospitalization and treatment plan will depend on findings be a cardiac catheterization. We will continue to follow clinically. Had cardiac catheterization on March 01 needs coronary artery bypass -- cardiovascular surgery has been counseled Community acquired pneumonia - Chest x-ray reviewed showing diffuse interstitial infiltrates. Started on ceftriaxone and azithromycin. - Monitor for infection. Afebrile since presentation. Mild leukocytosis, white blood cell 12.9. Follow CBC. BMP reviewed essentially unremarkable. - Supplemental O2 as needed, keep sats above 92%. Currently on 2LNC. Continue to monitor. Congestive heart failure, unspecified. - Patient is from [place]. No prior records. Echocardiogram ordered, pending. Follow. Patient is also undergoing cardiac cath today. - BNP 303 on presentation. Was given Lasix x 1 in ED. - Monitor intake and output. Negative fluid balance at this time. Will await cardiology recs for diuretics if needed depending on ECHO. Type 2 diabetes mellitus, chronic: Accu-Chek before meals at bedtime, sliding scale, cover as needed. Monitor BGM trends. Hemoglobin a1c pending. Will add lipid panel. Hypertension, chronic: Continue home JOLANTA inhibitor. Monitor BP trends. COPD not in exacerbation Tobaccoism - Duonebs as needed for wheezing. - Encouraged cessation. Nicotine patch offered. Coronary artery disease needs coronary artery bypass graft cardiovascular surgery has been consult has triple-vessel disease DVT prophylaxis: Heparin drip. Discharge Planning Pending clearance by cardiology and cardiovascular surgery Problem Qualifiers (1) CHF (congestive heart failure): Qualified Codes: I50.9 - Heart failure, unspecified (2) COPD (chronic obstructive pulmonary disease): Qualified Codes: J44.9 - Chronic obstructive pulmonary disease, unspecified Felix Gutierrez DO Mar 01, 2018 12:20
[2018-03-01] MEDS ORDERED: RESP: ALBUTEROL 2.5 MG/IPRATROPIUM 0.5 MG NEB (PRN) NEB (12:30)
[2018-03-01 13:00] LABS: ALBUMIN 3.4 GM/DL (3.4-5.0); ALT (GPT) 10 U/L (12-78); AST (GOT) 19 U/L (15-37); DIRECT BILIRUBIN ADULT 0.1 MG/DL (0.0-0.2)
[2018-03-01 13:02] LABS: ALKALINE PHOSPHATASE 102 U/L (45-117); INDIRECT BILIRUBIN 0.4 MG/DL (0.0-0.8); TOTAL BILIRUBIN ADULT 0.5 MG/DL (0.2-1.0); TOTAL PROTEIN 7.3 GM/DL (6.4-8.2)
[2018-03-01] MEDS ORDERED: IOHEXOL 350 MG/ML 100 ML BTL (for Cath Lab) OTHER ONE (13:29)
[2018-03-01] MEDS ORDERED: IOHEXOL 350 MG/ML 50 ML BTL (for Cath Lab) OTHER ONE (13:29)
--- NOTE | 2018-03-01 13:57 | EKG ---
Date Performed: 02/28/2018 Time Performed: 15:05:38 PTAGE: 57 years EKG: Sinus rhythm NORMAL ECG Since the PREVIOUS TRACING , no significant change noted PREVIOUS TRACIN02/28/2018 09.05 DOCTOR: Airam Quintero Interpretating Date/Time 03/01/2018 13:55:55
[2018-03-01] MEDS: guaiFENesin E.R. 600 MG TAB PO SCH ×2 (14:06→20:13)
--- NOTE | 2018-03-01 14:28 | RADRPT ---
EXAM DATE/TIME: 03/01/2018 12:43 [facility] COMPARISON: No previous studies available for comparison. INDICATIONS : PreOp cardiac surgery. MEDICAL HISTORY : Hypertension. Hypercholesterolemia. Congestive heart failure. Dizziness. Chest pain. Dyspnea. Diabete s. Atrial fibrillation. SURGICAL HISTORY : Cholecystectomy. Right prosthesis implant. Teeth removed. Brain surgery. ENCOUNTER: Initial ACUITY: 1 day PAIN SCORE: 0/10 LOCATION: Bilateral legs. TECHNIQUE: Venous ultrasound of the left and right leg was performed from the inguinal ligament to the proximal calf. Real-time, color Doppler and spectral tracing, compression and augmentation techniques were us ed. FINDINGS: RIGHT LEG: There is normal compressibility of the deep venous system from the inguinal region to the proximal ca lf. No echogenic clot is seen in the lumen of the common femoral, femoral, popliteal, and posterior tibial veins. There is a normal response of the venous system to proximal and distal augmentation an d respiration. LEFT LEG: There is normal compressibility of the deep venous system from the inguinal region to the proximal ca lf. No echogenic clot is seen in the lumen of the common femoral, femoral, popliteal, and posterior tibial veins. There is a normal response of the venous system to proximal and distal augmentation an d respiration. CONCLUSION: 1. Negative for deep venous thrombosis bilateral lower extremity. Jake Penaloza MD on March 01, 2018 at 14:25 Board Certified Radiologist. This report was verified electronically.
--- NOTE | 2018-03-01 14:35 | RADRPT ---
EXAM DATE/TIME: 03/01/2018 12:08 [facility] COMPARISON: No previous studies available for comparison. INDICATIONS : PreOp Cardiac surgery. MEDICAL HISTORY : Congestive heart failure. Hypercholesterolemia. Hypertension. Dizziness. Chest pain. Dyspnea. Diabete s. Atrial fibrillation. SURGICAL HISTORY : Cholecystectomy. Right prosthesis implant. Teeth removed. Brain surgery. ENCOUNTER: Initial ACUITY: 1 day PAIN SCORE: 0/10 LOCATION: Right neck PEAK SYSTOLIC VELOCITIES (cm/sec): ICA/CCA RATIO: Right: 1.8 Left: 1.1 ICA: Right: 85 Left: 82 CCA: Right: 48 Left: 75 ECA: Right: 91 Left: 75 VERTEBRAL: Right: 54 antegrade Left: 42 antegrade Elevated flow velocities and ICA/CCA ratios have been found to correlate with increased degrees of vessel stenosis, calculated as percentage of diameter relative to a normal segment of distal ICA/CCA FINDINGS: RIGHT CAROTID: There is prominent echogenic plaque in the distal common carotid artery and carotid bulb with some sh adowing. The velocity spectrum is not widened. LEFT CAROTID: Mild focal plaque formation in the common and internal carotid artery. There is widening of the [place] spectrum in the proximal internal carotid artery, with negative velocity components during late systole. VERTEBRAL ARTERIES: Antegrade flow is seen in both vertebral arteries. CONCLUSION: Hemodynamic parameters are borderline abnormal and there is evidence of bilateral plaque formation at the common and internal carotid arteries. The borderline abnormality suggest 50-70% stenoses. Jake Penaloza MD on March 01, 2018 at 14:30 Board Certified Radiologist. This report was verified electronically.
--- NOTE | 2018-03-01 15:01 | RADRPT ---
EXAM DATE/TIME: 03/01/2018 13:03 [facility] COMPARISON: US LEG BILATERAL VENOUS DOPPLER, March 01, 2018, 12:43. INDICATIONS : PreOp cardiac surgery. MEDICAL HISTORY : Hypertension. Hypercholesterolemia. Congestive heart failure. Dizziness. Chest pain. Dyspnea. Diabete s. Atrial fibrillation. SURGICAL HISTORY : Cholecystectomy. Right prosthesis implant. Teeth removed. Brain surgery. ENCOUNTER: Initial ACUITY: 1 day PAIN SCORE: 0/10 LOCATION: Bilateral legs GREATER SAPHENOUS VEIN THIGH: PROXIMAL: Right 4 mm Left 4 mm MID: Right 2 mm Left 2 mm DISTAL: Right 1 mm Left 1 mm CALF: PROXIMAL: Right 1 mm Left Non-visualized MID: Right 1 mm Left Non-visualized DISTAL: Right Non-visualized Left Non-visualized FINDINGS: The venous system of the lower extremities are patent by color Doppler imaging. Measurements of the leg veins (in mm) are listed above. CONCLUSION: 1. Vein mapping as above. Vini Cook MD on March 01, 2018 at 14:57 Board Certified Radiologist. This report was verified electronically.
--- NOTE | 2018-03-01 15:15 | PD.CAR.PN ---
CVT Progress Note Subjective/Hospital Course: pt seen and evaluated / sts data discussed with pt for surgery in am RISK SCORES About the STS Risk Calculator Procedure: CAB Only Risk of Mortality: 0.904% Morbidity or Mortality: 13.338% Long Length of Stay: 5.84% Short Length of Stay: 40.12% Permanent Stroke: 0.828% Prolonged Ventilation: 9.161% DSW Infection: 0.556% Renal Failure: 2.142% Reoperation: 5.247% Objective: Vital Signs Date Time Temp Pulse Resp B/P (MAP) Pulse Ox O2 Delivery O2 Flow Rate FiO2 03/01/18 13:01 79 03/01/18 12:00 76 03/01/18 11:45 98.0 83 18 130/81 (97) 96 03/01/18 11:00 95 03/01/18 10:00 76 03/01/18 09:00 76 03/01/18 08:45 98.2 78 18 158/90 (112) 94 03/01/18 07:00 90 03/01/18 06:00 74 03/01/18 05:00 86 03/01/18 04:00 98.3 83 18 156/97 (116) 94 03/01/18 04:00 68 03/01/18 03:00 68 03/01/18 02:00 68 03/01/18 01:00 70 03/01/18 00:00 76 03/01/18 00:00 98.0 79 18 141/79 (99) 94 02/28/18 23:00 78 02/28/18 22:00 80 02/28/18 21:27 98 2.00 02/28/18 21:00 78 02/28/18 20:00 98.8 76 20 147/20 (62) 96 02/28/18 20:00 76 02/28/18 16:00 81 16 163/90 (114) Labs: Laboratory Tests Test 03/01/18 06:07 White Blood Count 10.0 TH/MM3 (4.0-11.0) Red Blood Count 5.46 MIL/MM3 (4.50-5.90) Hemoglobin 15.9 GM/DL (13.0-17.0) Hematocrit 44.9 % (39.0-51.0) Mean Corpuscular Volume 82.4 FL (80.0-100.0) Mean Corpuscular Hemoglobin 29.2 PG (27.0-34.0) Mean Corpuscular Hemoglobin Concent 35.4 % (32.0-36.0) Red Cell Distribution Width 13.9 % (11.6-17.2) Platelet Count 252 TH/MM3 (150-450) Mean Platelet Volume 8.4 FL (7.0-11.0) Neutrophils (%) (Auto) 57.2 % (16.0-70.0) Lymphocytes (%) (Auto) 30.6 % (9.0-44.0) Monocytes (%) (Auto) 5.7 % (0.0-8.0) Eosinophils (%) (Auto) 5.1 % (0.0-4.0) Basophils (%) (Auto) 1.4 % (0.0-2.0) Neutrophils # (Auto) 5.7 TH/MM3 (1.8-7.7) Lymphocytes # (Auto) 3.1 TH/MM3 (1.0-4.8) Monocytes # (Auto) 0.6 TH/MM3 (0-0.9) Eosinophils # (Auto) 0.5 TH/MM3 (0-0.4) Basophils # (Auto) 0.1 TH/MM3 (0-0.2) CBC Comment DIFF FINAL Differential Comment Prothrombin Time 10.6 SEC (9.8-11.6) Prothromb Time International Ratio 1.0 RATIO Blood Urea Nitrogen 10 MG/DL (7-18) Creatinine 0.92 MG/DL (0.60-1.30) Random Glucose 201 MG/DL (74-106) Calcium Level 8.9 MG/DL (8.5-10.1) Sodium Level 138 MEQ/L (136-145) Potassium Level 3.2 MEQ/L (3.5-5.1) Chloride Level 103 MEQ/L (98-107) Carbon Dioxide Level 25.1 MEQ/L (21.0-32.0) Anion Gap 10 MEQ/L (5-15) Estimat Glomerular Filtration Rate 84 ML/MIN (>89) Total Bilirubin 0.5 MG/DL (0.2-1.0) Direct Bilirubin 0.1 MG/DL (0.0-0.2) Indirect Bilirubin 0.4 MG/DL (0.0-0.8) Aspartate Amino Transf (AST/SGOT) 19 U/L (15-37) Alanine Aminotransferase (ALT/SGPT) 10 U/L (12-78) Alkaline Phosphatase 102 U/L (45-117) Total Protein 7.3 GM/DL (6.4-8.2) Albumin 3.4 GM/DL (3.4-5.0) Result Diagram: 03/01/18 0607 03/01/18 0607 Ce SotoP Mar 01, 2018 15:15
--- NOTE | 2018-03-01 15:25 | RADRPT ---
EXAM DATE/TIME: 03/01/2018 15:07 [facility] COMPARISON: No previous studies available for comparison. INDICATIONS : Pre op CABG RADIATION DOSE: 11.28 CTDIvol (mGy) MEDICAL HISTORY : Cardiovascular disease. Hypertension. Gastroesophageal reflux disease. SURGICAL HISTORY : Cholecystectomy. ENCOUNTER: Initial ACUITY: 1 day PAIN SCALE: 0/10 LOCATION: chest TECHNIQUE: Volumetric scanning of the chest was performed. Using automated exposure control and adjustment of t he mA and/or kV according to patient size, radiation dose was kept as low as reasonably achievable to obtain optimal diagnostic quality images. DICOM format image data is available electronically for r eview and comparison. Follow-up recommendations for detected pulmonary nodules are based at a minimum on nodule size and pa tient risk factors according to Fleischner Society Guidelines. FINDINGS: There are COPD changes within the pulmonary parenchyma. No suspicious mass lesions are identified. No pleural effusion is present. The heart is enlarged. There is extensive calcification of the coronary arteries. No pericardial effu anh is present. No significant hilar or mediastinal adenopathy is present. The limited portion of upper abdomen visualized demonstrates a partially visualized measuring approxi mately 8 mm in the collecting system of the left kidney. The remainder of the upper abdomen is unrema rkable in appearance. The visualized bony structures are grossly intact. CONCLUSION: 1. COPD changes. 2. Cardiomegaly with extensive atherosclerotic plaquing in the coronary arteries. 3. Renal stone on the left. Vini Cook MD on March 01, 2018 at 15:20 Board Certified Radiologist. This report was verified electronically.
--- NOTE | 2018-03-01 15:43 | MB ---
cc: Ce Soto DATE: 03/01/2018 HISTORY OF PRESENT ILLNESS: This 57-year-old male with history of hypertension, diabetes, and tobacco use, presented to the emergency room with shortness of breath, was in atrial fibrillation with RVR. They put him on a Cardizem drip. He converted into sinus rhythm. His shortness of breath also improved. He had no lightheadedness or dizziness. He ruled in for a non-STEMI with a troponin of 2.84, repeat EKG yesterday afternoon showed sinus rhythm with no acute change. The patient underwent cardiac catheterization by Dr. Teja Grant, which showed ejection fraction of 40%, left main disease of 10%, proximal LAD 70%, mid distal 80%, diagonal 90%. The circuit was 99%, the RCA mid was 60, the ramus was 70%. We were consulted for coronary artery bypass grafting. PAST MEDICAL HISTORY: Hypertension, hyperlipidemia, and diabetes mellitus. He recently moved from [place], does not have a PCP. 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 ALLERGIES: HE HAS NO KNOWN ALLERGIES. HOME MEDICATIONS: 1. Lipitor. 2. Lisinopril. 3. Metformin. 4. Glucotrol. FAMILY HISTORY: Mother from lymphoma. Father from emphysema. SOCIAL HISTORY: The patient is . No children. He is unemployed, lives with his brother, has a sister in [facility]. Has been smoking for 30 years, 1 pack. No alcohol. No illicit drugs. REVIEW OF SYSTEMS: GENERAL: No night sweats, fever, or heat and cold intolerance. SKIN: No psoriasis, itching or hives. HEENT: No blurred vision or hearing loss. RESPIRATORY: Positive for recent shortness of breath, no cough, No fevers or chills. CARDIOVASCULAR: As above in the HPI. GASTROINTESTINAL: No diarrhea or vomiting. GENITOURINARY: No burning, frequency, or urgency. CENTRAL NERVOUS SYSTEM: No history of TIA, CVA or seizure disorder. ENDOCRINOLOGY: Positive for diabetes. PHYSICAL EXAMINATION: VITAL SIGNS: Blood pressure 130/80, heart rate of 80, afebrile. GENERAL: The patient is awake, alert, no acute distress. HEENT: Head is normocephalic. He has a right false eye. Oral mucosa pink, moist. NECK: Supple. No JVD. CARDIOVASCULAR: Heart sounds S1, S2. Regular rate and rhythm. No rubs, murmurs, or gallops. LUNGS: Clear to auscultation, slightly diminished in the bases, otherwise clear to auscultation. ABDOMEN: Soft, nontender. No masses or organomegaly. EXTREMITIES: No cyanosis, clubbing, or edema. LABORATORY DATA: Shows hemoglobin of 15, hematocrit of 45. white cell count of 10, platelet count of 252. Sodium 138, potassium 3.2, BUN of 10, creatinine 0.92. Hemoglobin A1c of 8.5. Troponin was 2.84. Triglycerides 296, cholesterol 237, LDL 149. AST 19, ALT 10. INR 1.0. IMAGING STUDIES: Carotid ultrasound shows bilateral plaque formation, borderline, suggesting 50-70%, which would need followup postop. Lower extremity is negative for DVT. Chest x-ray showed diffuse interstitial infiltrate. CT chest is pending currently. IMPRESSION: This is a 57-year-old male with admission with non-ST elevation myocardial infarction, multivessel disease, ejection fraction of 40%. Echocardiogram showed ejection fraction of 60%, catheterization showed 50%, some mild mitral regurgitation, trace aortic insufficiency. PLAN: Will be for coronary artery bypass graft x 3-4 in the a.m. Await also the results of his CT scan. He currently is afebrile. He has no leukocytosis or fever. He has no cough. Procedures, alternatives and risks will be discussed with the patient, and the patient is agreeable to proceed. We will plan for the a.m. JAMSHID Preciado MD JRT/ELENA , 03:11 PM , 03:42 PM
[2018-03-01 16:32] LABS: BILIRUBIN, URINE NEG (NEG); BLOOD, URINE NEG (NEG); GLUCOSE,URINE 70 mg/dL (NEG); KETONE, URINE NEG (NEG); MUCUS URINE FEW /lpf (OCC); NITRITE,URINE NEG (NEG); PH, URINE 6.5 (5.0-8.5); URINE COLOR YELLOW (YELLW/STRAW); URINE LEUKOCYTE ESTERASE NEG (NEG)
[2018-03-01] MEDS: RESP: ALBUTEROL 2.5 MG/IPRATROPIUM 0.5 MG NEB (SCH) NEB ×2 (16:42→19:38)
[2018-03-01] MEDS ORDERED: PAPAVERINE INJ 60 MG, NITROGLYCERIN INJ 100 MCG, VERAPAMIL INJ 100 MG in SODIUM CHLORID... IRRIGATION SCH (16:45)
[2018-03-01 17:35] LABS: HEMOGLOBIN A1C 8.3 % (4.3-6.0)
[2018-03-01] MEDS: HEPARIN SODIUM - IV 10,000 UNITS/10 ML VIAL IV PUSH PRN (19:24)
[2018-03-01] MEDS: ATORVASTATIN 20 MG TAB PO SCH (20:13)
[2018-03-01] MEDS: INSULIN DETEMIR 100 UNITS/ML VIAL SQ SCH (20:14)
[2018-03-01] MEDS: SODIUM CHLORIDE 0.9% FLUSH 10 ML FLUSH IV FLUSH SCH (20:14)
[2018-03-02] VITALS (17 sets, daily range): BP systolic 96–146; BP diastolic 44–86; PULSE 62–89; RESP 15–20; TEMP 97.4–99.4; O2SAT 94–98
[2018-03-02 02:47] LABS: INTERNATIONAL NORMALIZED RATIO 1.1 RATIO; PROTHROMBIN TIME - PATIENT 10.7 SEC (9.8-11.6)
[2018-03-02 03:01] LABS: ALBUMIN 3.1 GM/DL (3.4-5.0); ALT (GPT) 13 U/L (12-78); AST (GOT) 14 U/L (15-37); BICARBONATE 24.5 MEQ/L (21.0-32.0); BLOOD UREA NITROGEN 11 MG/DL (7-18); CALCIUM 8.8 MG/DL (8.5-10.1); CHLORIDE 103 MEQ/L (98-107); CREATININE 0.87 MG/DL (0.60-1.30); GLOMERULAR FILTRATION RATE 90 ML/MIN (>89); GLUCOSE,RANDOM 147 MG/DL (74-106); MAGNESIUM 1.9 MG/DL (1.5-2.5); PHOSPHORUS 3.8 MG/DL (2.5-4.9); SODIUM (NA) 137 MEQ/L (136-145)
[2018-03-02 03:10] LABS: ALKALINE PHOSPHATASE 97 U/L (45-117); FREE T4 0.97 NG/DL (0.76-1.46); TOTAL BILIRUBIN ADULT 0.5 MG/DL (0.2-1.0)
[2018-03-02] MEDS: RESP: ALBUTEROL 2.5 MG/IPRATROPIUM 0.5 MG NEB (SCH) NEB ×4 (03:33→22:13)
[2018-03-02 03:47] LABS: AUTOMATED NEUTROPHIL # 7.1 TH/MM3 (1.8-7.7); BASOPHIL # 0.1 TH/MM3 (0-0.2); BASOPHIL % 0.9 % (0.0-2.0); EOSINOPHIL # 0.5 TH/MM3 (0-0.4); EOSINOPHIL % 4.4 % (0.0-4.0); HEMATOCRIT 42.8 % (39.0-51.0); HEMOGLOBIN 15.2 GM/DL (13.0-17.0); LYMPH % 22.3 % (9.0-44.0); LYMPHOCYTE # 2.4 TH/MM3 (1.0-4.8); MEAN CELL VOLUME 82.2 FL (80.0-100.0); MEAN CORPUSCULAR HEMOGLOBIN 29.1 PG (27.0-34.0); MEAN CORPUSCULAR HGB CONC 35.4 % (32.0-36.0); MEAN PLATELET VOLUME 8.4 FL (7.0-11.0); MONO % 6.5 % (0.0-8.0); MONOCYTE # 0.7 TH/MM3 (0-0.9); NEUT % 65.9 % (16.0-70.0); PLATELET COUNT 238 TH/MM3 (150-450); RED BLOOD COUNT 5.21 MIL/MM3 (4.50-5.90); RED CELL DISTRIBUTION WIDTH 14.1 % (11.6-17.2); WHITE BLOOD COUNT 10.7 TH/MM3 (4.0-11.0)
[2018-03-02] MEDS ORDERED: SODIUM CHLORID 0.9% 500 ML IV PRN (04:30)
[2018-03-02] MEDS ORDERED: POVIDONE IODINE 5% (ANTISEPSIS KIT) 4 APPLICATIONS EACH NARE PRN (04:30)
[2018-03-02] MEDS ORDERED: LACTATED RINGER'S 1000 ML IV PRN (04:30)
[2018-03-02] MEDS ORDERED: CHLORHEXIDINE GLUCONATE 2 % 1 PACK (2 CLOTHS) TOPICAL PRN (04:30)
[2018-03-02] MEDS: NITROGLYCERIN 2% OINT 1 GM PACKET TOPICAL SCH ×2 (05:22→10:51)
[2018-03-02] MEDS ORDERED: VANCOMYCIN HCL 1000 MG VIAL ONE ×3 (06:35→10:39)
[2018-03-02] MEDS ORDERED: ceFAZolin INJ 1,000 MG VIAL ONE (06:35)
[2018-03-02] MEDS ORDERED: HEPARIN SODIUM - SQ 10,000 UNITS/ML VIAL ONE (06:35)
[2018-03-02] MEDS: INSULIN ASPART SUPPLEMENTAL SCALE SQ SCH (08:00)
[2018-03-02] MEDS: guaiFENesin E.R. 600 MG TAB PO SCH ×2 (09:00→20:44)
[2018-03-02] MEDS: SODIUM CHLORIDE 0.9% FLUSH 10 ML FLUSH IV FLUSH SCH ×2 (09:00→20:44)
[2018-03-02] MEDS: AZITHROMYCIN 250 MG TAB PO SCH (09:00)
[2018-03-02] MEDS: DILTIAZEM-CD 240 MG CAP ER PO SCH (09:00)
[2018-03-02] MEDS: DOCUSATE SODIUM 50 MG/SENNA 8.6 MG TAB PO SCH ×2 (09:00→20:44)
[2018-03-02] MEDS: INSULIN DETEMIR 100 UNITS/ML VIAL SQ SCH (09:00)
--- NOTE | 2018-03-02 09:54 | HHI.FF ---
Face to Face Verification Diagnosis: (1) Coronary artery disease (2) S/P CABG (coronary artery bypass graft) (3) COPD (chronic obstructive pulmonary disease) (4) Diabetes (5) CHF (congestive heart failure) (6) Atrial fibrillation with RVR Home Health Nursing Order: Medication education-adverse effect Wound care and dressing changes Nursing assessment with vital signs Instructions: Heart and Vascular Surgery patients *Special attention to sternal dressing Mandatory frequency Assess and evaluation, 4 days in a row The next week 3X week 2 times a week for 4 weeks 1 time a week for 5 weeks Schedule Heart and Vascular patients for full 60 day certification period Initial visit Review Open Heart Surgery Discharge Instructions (Sternal precautions, Activity, Elastic hose, Incision care, Driving, Incentive spirometry, Smoking, [place], Work and other) Need Betadine to paint incision Medication reconciliation Importance of follow up care/ check on appointments Make calendar record temperature daily When to call [facility] nurse, review instructions, phone list Incentive Spirometry, demonstration Visit 1- Begin discharge instruction for patient family and/ or caregiver using teach back method- Signs and symptoms of infection Disease characteristics Medicines and side effects Foods and nutrition/ appetite Infection control/ hand washing/ hygiene Visit 2- Continue teaching Discharge instructions- include additional information on smoking cessation , sternal dressing (sternal vac) Visit 3- Continue teaching- Cough and deep breathing, incision monitoring. Choose my plate Visit 4- Continue teaching- Discuss limitations Discuss how they are feeling Discuss progress toward goals Remaining visits- continue teaching and monitoring For any questions please call : Monday 8am-5pm Heart & Vascular Surgery Office ( Dr. Eisenberg & Dr. Harrison), After Hours / Nights (5pm -8am) Weekends and Holidays Please call [facility] Cardiac Intermediate Care Unit (CIC) Charge Nurse PREVENA Single Use Negative Wound Therapy System Caregiver Instruction Sheet 1. A Prevena dressing system was applied to the chest incision during surgery , to promote wound healing. It works via a suction device (negative pressure wound therapy) to remove low to moderate levels of exudate (drainage) and infectious materials. We recommend that the device stay in place for up to seven days, from day of surgery. 2. Day of Surgery___/05/14 Day of Removal ____/ 3. The dressing should only be removed by a health residential child care counselor. Please arrange removal of device to coincide with Home Health visit and or with Nursing staff at Rehab 4. If skin reddening or irritation of skin occurs, or excessive drainage, please notify the Cardiovascular Surgeons office at [phone]. 5. Light showering is permissible; however the pump should be disconnected and placed in safe location, where it will not get wet. The dressing should not be exposed to direct spray or submerged in water. No bath tub / shower only. Ensure the end of the tubing attached to the dressing is facing down so that water does not enter the top of the tube. 6. To remove Prevena dressing: press purple button to turn off device / remove the suction. Then disconnect the tubing from the pump. The fixation strips should be stretched away from the skin and the dressing lifted at one corner and peeled back until it has been fully removed. 7. After removal, it is ok to shower daily using liquid dial soap and clean wash cloth, rinse and pat dry, and leave incision open to air dry. For any concerns regarding Prevena dressing, and or wounds, please contact Xochitl Romo, patient navigator at [phone] or notify the Cardiovascular Surgeons office at [phone]. Incentive spirometry Q1 hr x 10, while awake, also use acapella device hourly whole awake Sternal Breast Bone Precautions: NO pushing or pulling, ( pt must use sternal pillow to support chest with all activities and with coughing ( takes up to 3 months breast bone to heal ) All females to wear sternal bra , launder as needed Daily incision care: ok to shower daily, no tub bath. Wash all incisions with liquid dial soap, clean wash cloth to each site, rinse and pat dry. Observe for any signs of infection, such as drainage which is dark yellow, page, green or foul smelling. Immediately report to the surgeon any drainage from the chest incision, or legs, and for any abnormal drainage from the chest tube sites. Notify surgeon if any temp >101.5 degrees F. When specialty dressing removed/ or if you do not have one, continue to shower daily as above, then rinse and pat incision dry and paint with betadine daily x 5 days. Allow steri strips to fall off if you have any. Avoid lotions, creams, salves, oils, etc. for the first month Please see attached forms for additional instructions regarding post Open Heart specialty wound vacuum dressings. PITO or Prevena , Dressing to be removed by Nursing staff on __03/09/18 F/U appointment: as per DC instructions: PCP in 2 weeks, CV surgeon 2 weeks, Oil Expert 3-4 weeks For any questions regarding incisions/ dressing / meds / post op care or above Symptoms, Monday 8am-5pm Heart & Vascular Surgery Office ( Dr. Eisenberg & Dr. Harrison), After Hours / Nights (5pm -8am) Weekends and Holidays Please call [facility] Cardiac Intermediate Care Unit (CIC) Charge Nurse I have seen patient Carloz Sanchez on 03/02/18. My clinical findings support the need for the requested home health care services because: Deconditioned w/ increased weakness I certify that my clinical findings support that this patient is homebound because: Post-op weakness Ce Soto Mar 02, 2018 09:54
[2018-03-02] MEDS: cefTRIAXone INJ 1,000 MG in SODIUM CHLORIDE 0.9% INJ 100 ML IV SCH (10:00)
[2018-03-02] MEDS ORDERED: POTASSIUM CHLORIDE 20 MEQ/10 ML VIAL ONE (11:13)
[2018-03-02] MEDS ORDERED: ONDANSETRON HCL 4 MG/2 ML VIAL IV PUSH PRN (11:15)
--- NOTE | 2018-03-02 11:23 | PD.OP ---
cc: Owen Eisenberg MD; Teja Grant MD Operative Report Date of Surgery: Mar 02, 2018 Preoperative Diagnosis: Postoperative Diagnosis: Procedure: 1. Urgent Off-pump Coronary Artery Bypass Grafting x 3 with Left Internal Mammary Artery (CARVALHO) to Left Anterior Descending (LAD), reverse saphenous vein graft to the Diagonal 1 (D1), reverse saphenous vein graft to the Posterolateral Branch of the Right Coronary Artery (RPLB) 2. Left Leg Endoscopic Vein [place] 3. Intraoperative Vein Mapping. Surgeon: Owen Eisenberg Delimber Operator(s): Memo Gutierrez Operation and Findings: PREPROCEDURE DIAGNOSES 1. Severe Multi Vessel Coronary Artery Disease. 2. Acute Myocardial Infarction (NSTEMI) 3. Moderate Left Ventricular Dysfunction (EF 40%) POSTPROCEDURE DIAGNOSES Same SURGICAL PROCEDURE 1. Urgent Off-pump Coronary Artery Bypass Grafting x 3 with Left Internal Mammary Artery (CARVALHO) to Left Anterior Descending (LAD), reverse saphenous vein graft to the Diagonal 1 (D1), reverse saphenous vein graft to the Posterolateral Branch of the Right Coronary Artery (RPLB) 2. Left Leg Endoscopic Vein [place] 3. Intraoperative Vein Mapping. SURGEON Owen Eisenberg MD SOLAR MAINTENANCE TECHNICIAN Jana Gutierrez PA-C ANESTHESIA General endotracheal CASINO ACCOUNTANT Kaylee Arita, GRICELDA Vance MD PREPARATION ChloraPrep. COUNTS Needle, sponge, and instrument counts were correct. DRAINS Two 32-Palestinian mediastinal tubes. COMPLICATIONS None. INDICATIONS FOR PROCEDURE The patient is a 57-year-old presenting with chest pain and AMI. Patient was noted to have multi-vessel coronary artery disease. The patient is being brought to the operating room for surgical revascularization therapy. PROCEDURE Patient was brought to the operating room and placed supine on the OR table. Following the induction of adequate general endotracheal anesthesia and placement of appropriate monitoring devices, intraoperative vein mapping was performed which revealed marginal but usable-caliber conduit in bilateral thighs. The patient was then prepped and draped in standard sterile fashion. Next, 2500 units of intravenous heparin was given. The left greater saphenous vein was harvested endoscopically. This appeared to be a small but useable- caliber conduit. Simultaneously, a median sternotomy was performed and the left internal mammary artery dissected free off the posterior sternal table. The patient was systemically heparinized and anticoagulation monitored by serial ACT measurements. The internal mammary artery had good pulsatile flow in it and was a good-caliber conduit. The pericardium was then divided in the midline , the cradle created and targets analyzed. At this point, all anastomoses were performed in a beating-heart fashion using the Maquet stabilizing system. The left internal mammary artery was anastomosed to the mid LAD (1.75 mm) in an end- to-side fashion using 7-0 Prolene. Segment of saphenous vein graft was then anastomosed to a diffusely and heavily calcified D1 (2 mm) in an end-to-side fashion using 7-0 Prolene. The final segment of saphenous vein graft was then anastomosed to the RPLB (1.75 mm) in an end-to-side fashion using 7-0 Prolene. The proximal anastomosis was then constructed to the ascending aorta in a running manner using 6-0 Prolene. All anastomotic sites were inspected and appeared to be hemostatic and patent. Protamine solution was given. Strict hemostasis was assured. The closure was undertaken. 2 chest tubes were placed. The pericardium was reapproximated in the midline. The sternum was approximated using sternal wires. The muscular and fascial layer were then closed in 3 layers. The endoscopic vein harvest site was closed in 2 layers. The patient tolerated the procedure well and was transferred to CVICU in stable condition. Owen Eisenberg MD Mar 02, 2018 11:23
[2018-03-02] MEDS ORDERED: PHENYLEPHRINE INJ 40 MG in DEXTROSE 5% IN WATE 500 ML INJ 496 ML IV PRN ×2 (11:30)
[2018-03-02] MEDS ORDERED: NITROGLYCERIN-D5W 50 MG/250 ML 250 ML IV PRN (11:30)
[2018-03-02] MEDS ORDERED: ALBUMIN 5% INJ 250 ML IV PRN (11:45)
[2018-03-02] MEDS ORDERED: CLEVIDIPINE INJ 50 ML IV PRN (11:45)
[2018-03-02] MEDS ORDERED: ACETAMINOPHEN 325 MG TAB PO PRN (11:45)
[2018-03-02] MEDS ORDERED: LACTATED RINGER'S 1000 ML INJ 500 ML IV PRN (11:45)
[2018-03-02] MEDS ORDERED: MORPHINE SULFATE 2 MG/ML SYRINGE IV PUSH PRN (11:45)
[2018-03-02] MEDS ORDERED: ACETAMINOPHEN 650 MG SUPP RECTAL PRN (11:45)
[2018-03-02] MEDS ORDERED: DEXTROSE 50% IN WATER 50 ML VIAL(D50) IV PUSH PRN (12:00)
[2018-03-02] MEDS ORDERED: VECURONIUM BROMIDE 20 MG VIAL IV ONE (12:00)
[2018-03-02] MEDS ORDERED: SODIUM BICARBONATE 8.4% SOLN 50 MEQ/50 ML VIAL IV PUSH PRN ×2 (12:00)
[2018-03-02] MEDS ORDERED: PROPOFOL 500 MG/50 ML BTL IV ONE (12:00)
[2018-03-02] MEDS ORDERED: HEPARIN SODIUM - SQ 10,000 UNITS/ML VIAL OTHER ONE (12:00)
[2018-03-02] MEDS ORDERED: SODIUM CHLOR 0.9% 250 ML INJ 250 ML IV ONE (12:00)
[2018-03-02] MEDS ORDERED: PROTAMINE SULFATE 250 MG/25 ML VIAL IV ONE (12:00)
[2018-03-02] MEDS ORDERED: INSULIN REGULAR (IV INFUSION) 100 UNITS in SODIUM CHLORIDE 0.9% INJ 99 ML IV PRN (12:00)
[2018-03-02] MEDS ORDERED: DOBUTamine PREMIX DRIP 250 ML IV PRN (12:00)
[2018-03-02] MEDS ORDERED: DOPamine 800 MG/500 ML INJ 500 ML IV PRN (12:00)
[2018-03-02] MEDS ORDERED: ePHEDrine/NS 25 MG/5 ML SYRINGE IV ONE ×2 (12:00)
[2018-03-02] MEDS ORDERED: ESMOLOL HCL 100 MG/10 ML VIAL IV ONE (12:00)
[2018-03-02] MEDS ORDERED: SODIUM CHLOR 0.9% 1000 ML INJ 1,000 ML IV ONE (12:00)
[2018-03-02] MEDS ORDERED: POTASSIUM CHLOR 20 MEQ PREMIX 100 ML IV PRN ×2 (12:00)
[2018-03-02] MEDS ORDERED: PHENYLEPH/NS 1000 MCG/10 ML SYR IV ONE (12:00)
[2018-03-02] MEDS ORDERED: DEXMEDETOMIDINE HCL 200 MCG/2 ML VIAL IV ONE (12:00)
[2018-03-02] MEDS ORDERED: CALCIUM CHLORIDE INJ 1 GM in SODIUM CHLORIDE 0.9% INJ 100 ML IV PRN (12:00)
[2018-03-02] MEDS ORDERED: MAGNESIUM SULFATE INJ 2 GM in SODIUM CHLORIDE 0.9% INJ 100 ML IV PRN ×4 (12:00)
[2018-03-02] MEDS ORDERED: RESP: ALBUTEROL 2.5 MG/IPRATROPIUM 0.5 MG NEB (PRN) NEB (12:00)
[2018-03-02] MEDS ORDERED: DEXMEDETOMIDINE INJ 200 MCG in SODIUM CHLORIDE 0.9% INJ 50 ML IV PRN (12:00)
[2018-03-02] MEDS ORDERED: Post-op Orders (for Pharmacy) OTHER ONE (12:00)
[2018-03-02] MEDS ORDERED: POTASSIUM CHLORIDE 20 MEQ CONTROLLED RELEASE TAB PO PRN ×2 (12:00)
[2018-03-02] MEDS ORDERED: KETOROLAC TROMETHAMINE 30 MG/ML (IVP) VIAL IV PUSH PRN (12:00)
[2018-03-02] MEDS ORDERED: CALCIUM CHLORIDE 10% 1 GRAM/10 ML VIAL IV PUSH PRN (12:00)
[2018-03-02] MEDS ORDERED: hydrALAZINE HCL 20 MG/ML VIAL IV PUSH PRN (12:00)
[2018-03-02] MEDS ORDERED: RESP: RACEPINEPHRINE 2.25% 0.5 ML NEB NEB PRN (12:00)
[2018-03-02] MEDS ORDERED: MEPERIDINE HCL 25 MG/ML VIAL IV PUSH PRN (12:00)
[2018-03-02] MEDS ORDERED: LACTATED RINGER'S 1000 ML INJ 1,000 ML IV ONE (12:00)
[2018-03-02] MEDS ORDERED: MAGNESIUM SULFATE 1 GM/2 ML VIAL IV ONE (12:00)
[2018-03-02] MEDS ORDERED: METOPROLOL TARTRATE 5 MG/5 ML VIAL IV PUSH PRN (12:00)
[2018-03-02] MEDS ORDERED: SODIUM CHLORIDE 0.9% 10 ML VIAL IV ONE (12:00)
[2018-03-02] MEDS ORDERED: MIDAZOLAM HCL 2 MG/2 ML VIAL ONE (12:26)
[2018-03-02] MEDS ORDERED: fentaNYL CITRATE 250 MCG/5 ML AMP ONE ×2 (12:26→12:27)
[2018-03-02] MEDS: ACETAMINOPHEN 1000 MG/100 ML 100 ML IV SCH ×3 (12:39→23:53)
--- NOTE | 2018-03-02 13:02 | RADRPT ---
EXAM DATE/TIME: 03/02/2018 13:15 [facility] COMPARISON: CHEST SINGLE AP, February 28, 2018, 2:00. INDICATIONS : Post CABG. MEDICAL HISTORY : Cardiovascular disease. Hypertension. Gastroesophageal reflux disease SURGICAL HISTORY : CABG. Cholecystectomy. ENCOUNTER: Subsequent ACUITY: 2 days PAIN SCORE: Non-responsive. LOCATION: Bilateral chest FINDINGS: Median sternotomy and CABG changes are now noted. Trace atelectasis in both bases. No perceptible eff usion. No pneumothorax seen. Mediastinal drain and left chest tube present. Endotracheal tube tip is approximately 4 cm above the gely. There is a nasogastric tube coursing into the stomach, the sidehole is near the GE junction. Left subclavian central venous catheter present, tip in the superior vena cava. CONCLUSION: Postop CABG with minimal bibasilar atelectasis. Lines and tubes appear appropriately positioned as ab ove. No pneumothorax or perceptible pleural effusion. David Martinez MD on March 02, 2018 at 12:59 Board Certified Radiologist. This report was verified electronically.
[2018-03-02] MEDS ORDERED: GLUCAGON 1 MG/ML VIAL OTHER PRN (13:45)
[2018-03-02] MEDS: POTASSIUM CHLOR 20 MEQ PREMIX 100 ML IV PRN ×2 (15:48→20:43)
--- NOTE | 2018-03-02 16:38 | HHI.PR ---
Subjective Remarks This is a pleasant 57-year-old male patient with a known medical history of hypertension, diabetes, dyslipidemia, tobaccoism and history of meningitis with subsequent right eye blindness who presented to the ED via private transportation with sudden dyspnea and chest pain. Patient states he woke up this morning around 0100 "gasping for air" and "could not catch his breath". Patient lives right around the [facility] and was brought here pretty quickly after episode began. Patient states that his dyspnea improved upon presentation to hospital with no recognizable alleviating factors. Patient states he did not have chest pain during episode but felt more but tightness in his midsternal chest that came and went with deep breathing. Denied any radiation of chest tightness. Denied any associated nausea, vomiting, or diaphoresis. Patient denies ever having this type of dyspnea or chest tightness in the past. Denies any recent illness including fever, chills, cough, abdominal pain, nausea, vomiting, diarrhea or dysuria. Patient does admit to smoking 1 pack per day of cigarettes since his early 20s. Patient just moved here from [place], has not established with the PCP. Does have a history of diabetes on metformin and glipizide. 4-5 artery catheterization today. Has multivessel disease. Cardiovascular surgery has been consulted regarding need for CABG. I discussed with patient and RN and case management patient states he does not need anything For his smoking issues Follow diabetes and other issues while he is here 4-6 HAD CABG TODAY SEEN POST OP NO NEW COMPLAINTS LOOKS COMFORTABLE NO SOB, NO CHEST PAIN DW RN AND PT AM LABS Objective Vitals Vital Signs Date Time Temp Pulse Resp B/P (MAP) Pulse Ox O2 Delivery O2 Flow Rate FiO2 03/02/18 15:00 94 Nasal Cannula 3.00 03/02/18 15:00 71 03/02/18 15:00 97.6 73 16 112/72 (85) 94 116/53 (74) 03/02/18 14:10 97 Nasal Cannula 4.00 03/02/18 14:10 97 Nasal Cannula 4 03/02/18 13:25 Nasal Cannula 36 40 03/02/18 13:10 50 03/02/18 13:00 62 03/02/18 12:00 96 50 03/02/18 12:00 98.2 70 15 101/68 (79) 98 96/44 (61) 03/02/18 12:00 50 03/02/18 06:04 88 03/02/18 05:49 99.4 82 146/86 (106) 97 03/02/18 05:00 72 03/02/18 04:00 70 03/02/18 03:00 71 03/02/18 02:00 76 03/02/18 01:00 74 03/02/18 00:00 74 03/01/18 23:47 98.2 73 134/73 (93) 95 03/01/18 23:00 73 03/01/18 22:00 80 03/01/18 21:00 76 03/01/18 20:00 80 03/01/18 20:00 98.4 78 113/64 (80) 100 03/01/18 19:39 95 Nasal Cannula 2.00 03/01/18 19:00 74 03/01/18 18:00 76 03/01/18 17:00 80 03/01/18 16:44 100 I/O 03/01/18 03/01/18 03/01/18 03/02/18 03/02/18 03/02/18 07:00 15:00 23:00 07:00 15:00 23:00 Intake Total 480 ml 200 ml 480 ml 240 ml 4360 ml Output Total 450 ml 350 ml Balance 480 ml 200 ml 30 ml 240 ml 4010 ml Intake Oral 480 ml 480 ml 240 ml IV Total 200 ml 310 ml Autotransfusion 250 ml Other 3800 ml Output Urine Total 450 ml 150 ml Estimated Blood Loss 200 ml # Voids 3 2 2 # Bowel Movements 1 1 Result Diagram: 03/02/18 0335 03/02/18 0200 Other Results Laboratory Tests Test 02/28/18 02:00 02/28/18 09:00 02/28/18 12:26 02/28/18 20:45 White Blood Count 12.9 TH/MM3 10.3 TH/MM3 Red Blood Count 6.01 MIL/MM3 5.45 MIL/MM3 Hemoglobin 17.7 GM/DL 15.3 GM/DL Hematocrit 50.8 % 46.0 % Mean Corpuscular Volume 84.4 FL 84.3 FL Mean Corpuscular Hemoglobin 29.4 PG 28.0 PG Mean Corpuscular Hemoglobin Concent 34.8 % 33.3 % Red Cell Distribution Width 13.4 % 13.2 % Platelet Count 297 TH/MM3 267 TH/MM3 Mean Platelet Volume 8.5 FL 8.3 FL Neutrophils (%) (Auto) 50.1 % Lymphocytes (%) (Auto) 37.3 % Monocytes (%) (Auto) 6.1 % Eosinophils (%) (Auto) 4.9 % Basophils (%) (Auto) 1.6 % Neutrophils # (Auto) 6.5 TH/MM3 Lymphocytes # (Auto) 4.8 TH/MM3 Monocytes # (Auto) 0.8 TH/MM3 Eosinophils # (Auto) 0.6 TH/MM3 Basophils # (Auto) 0.2 TH/MM3 CBC Comment DIFF FINAL Differential Comment Prothrombin Time 10.0 SEC 10.5 SEC Prothromb Time International Ratio 1.0 RATIO 1.0 RATIO Activated Partial Thromboplast Time 26.3 SEC 24.9 SEC 31.3 SEC Blood Urea Nitrogen 9 MG/DL Creatinine 0.95 MG/DL Random Glucose 222 MG/DL Calcium Level 9.3 MG/DL Magnesium Level 2.0 MG/DL Sodium Level 133 MEQ/L Potassium Level 3.5 MEQ/L Chloride Level 100 MEQ/L Carbon Dioxide Level 24.4 MEQ/L Anion Gap 9 MEQ/L Estimat Glomerular Filtration Rate 81 ML/MIN Hemoglobin A1c 8.5 % Total Creatine Kinase 127 U/L 202 U/L 122 U/L Creatine Kinase MB 1.0 NG/ML Troponin I 0.03 NG/ML 2.84 NG/ML 1.77 NG/ML B-Type Natriuretic Peptide 303 PG/ML Triglycerides Level 296 MG/DL Cholesterol Level 237 MG/DL LDL Cholesterol 149 MG/DL HDL Cholesterol 28.6 MG/DL Cholesterol/HDL Ratio 8.28 RATIO Test 03/01/18 06:07 03/01/18 14:16 03/01/18 18:04 03/02/18 02:00 White Blood Count 10.0 TH/MM3 Red Blood Count 5.46 MIL/MM3 Hemoglobin 15.9 GM/DL Hematocrit 44.9 % Mean Corpuscular Volume 82.4 FL Mean Corpuscular Hemoglobin 29.2 PG Mean Corpuscular Hemoglobin Concent 35.4 % Red Cell Distribution Width 13.9 % Platelet Count 252 TH/MM3 Mean Platelet Volume 8.4 FL Neutrophils (%) (Auto) 57.2 % Lymphocytes (%) (Auto) 30.6 % Monocytes (%) (Auto) 5.7 % Eosinophils (%) (Auto) 5.1 % Basophils (%) (Auto) 1.4 % Neutrophils # (Auto) 5.7 TH/MM3 Lymphocytes # (Auto) 3.1 TH/MM3 Monocytes # (Auto) 0.6 TH/MM3 Eosinophils # (Auto) 0.5 TH/MM3 Basophils # (Auto) 0.1 TH/MM3 CBC Comment DIFF FINAL Differential Comment Prothrombin Time 10.6 SEC 10.7 SEC Prothromb Time International Ratio 1.0 RATIO 1.1 RATIO Blood Urea Nitrogen 10 MG/DL 11 MG/DL Creatinine 0.92 MG/DL 0.87 MG/DL Random Glucose 201 MG/DL 147 MG/DL Calcium Level 8.9 MG/DL 8.8 MG/DL Sodium Level 138 MEQ/L 137 MEQ/L Potassium Level 3.2 MEQ/L 3.2 MEQ/L Chloride Level 103 MEQ/L 103 MEQ/L Carbon Dioxide Level 25.1 MEQ/L 24.5 MEQ/L Anion Gap 10 MEQ/L 10 MEQ/L Estimat Glomerular Filtration Rate 84 ML/MIN 90 ML/MIN Hemoglobin A1c 8.3 % Total Bilirubin 0.5 MG/DL 0.5 MG/DL Direct Bilirubin 0.1 MG/DL Indirect Bilirubin 0.4 MG/DL Aspartate Amino Transf (AST/SGOT) 19 U/L 14 U/L Alanine Aminotransferase (ALT/SGPT) 10 U/L 13 U/L Alkaline Phosphatase 102 U/L 97 U/L Total Protein 7.3 GM/DL 7.0 GM/DL Albumin 3.4 GM/DL 3.1 GM/DL Urine Color YELLOW Urine Turbidity CLEAR Urine pH 6.5 Urine Specific [place] 1.050 Urine Protein 100 mg/dL Urine Glucose (UA) 70 mg/dL Urine Ketones NEG mg/dL Urine Occult Blood NEG Urine Nitrite NEG Urine Bilirubin NEG Urine Urobilinogen 2.0 MG/DL Urine Leukocyte Esterase NEG Urine RBC 1 /hpf Urine Mucus FEW /lpf Microscopic Urinalysis Comment CULT NOT INDICATED Nasal Screen MRSA (PCR) MRSA DETECTED Activated Partial Thromboplast Time 28.4 SEC 30.6 SEC Phosphorus Level 3.8 MG/DL Magnesium Level 1.9 MG/DL Free Thyroxine 0.97 NG/DL Thyroid Stimulating Hormone 3rd Gen 4.750 uIU/ML Test 03/02/18 03:35 White Blood Count 10.7 TH/MM3 Red Blood Count 5.21 MIL/MM3 Hemoglobin 15.2 GM/DL Hematocrit 42.8 % Mean Corpuscular Volume 82.2 FL Mean Corpuscular Hemoglobin 29.1 PG Mean Corpuscular Hemoglobin Concent 35.4 % Red Cell Distribution Width 14.1 % Platelet Count 238 TH/MM3 Mean Platelet Volume 8.4 FL Neutrophils (%) (Auto) 65.9 % Lymphocytes (%) (Auto) 22.3 % Monocytes (%) (Auto) 6.5 % Eosinophils (%) (Auto) 4.4 % Basophils (%) (Auto) 0.9 % Neutrophils # (Auto) 7.1 TH/MM3 Lymphocytes # (Auto) 2.4 TH/MM3 Monocytes # (Auto) 0.7 TH/MM3 Eosinophils # (Auto) 0.5 TH/MM3 Basophils # (Auto) 0.1 TH/MM3 CBC Comment DIFF FINAL Differential Comment Imaging Last Impressions Chest X-Ray 03/02/18 0000 Signed Impressions: Service Date/Time: Friday, March 02, 2018 13:15 - CONCLUSION: Postop CABG with minimal bibasilar atelectasis. Lines and tubes appear appropriately positioned as above. No pneumothorax or perceptible pleural effusion. David Martinez MD Lower Extremity Ultrasound 03/01/[id number] Signed Impressions: Service Date/Time: February 13:03 - CONCLUSION: 1. Vein mapping as above. Vini Cook MD Chest CT 03/01/181409 Signed Impressions: Service Date/Time: February 15:07 - CONCLUSION: 1. COPD changes. 2. Cardiomegaly with extensive atherosclerotic plaquing in the coronary arteries. 3. Renal stone on the left. Vini Cook MD Carotid Artery Ultrasound 03/01/181409 Signed Impressions: Service Date/Time: February 12:08 - CONCLUSION: Hemodynamic parameters are borderline abnormal and there is evidence of bilateral plaque formation at the common and internal carotid arteries. The borderline abnormality suggest 50-70%% stenoses. Jake Penaloza MD Objective Remarks GENERAL: Awake alert oriented 3 talkative and cooperative appears stated age has already had cardiac catheterization today SKIN: Warm and dry. HEAD: Atraumatic. Normocephalic. EYES: Pupils equal and round. No scleral icterus. No injection or drainage. Extraocular muscles intact ENT: No nasal bleeding or discharge. Mucous membranes pink and moist. Tongue is midline NECK: Trachea midline. No JVD. CARDIOVASCULAR: Regular rate and rhythm. S1-S2 no S3 or S4 RESPIRATORY: No accessory muscle use. Clear to auscultation. Breath sounds equal bilaterally. GASTROINTESTINAL: Abdomen soft, non-tender, nondistended. Hepatic and splenic margins not palpable. MUSCULOSKELETAL: Extremities without clubbing, cyanosis, or edema. No obvious deformities. NEUROLOGICAL: Awake and alert. No obvious cranial nerve deficits. Motor grossly within normal limits. Five out of 5 muscle strength in the arms and legs. Normal speech. PSYCHIATRIC: Appropriate mood and affect; insight and judgment normal. Procedures 03-01-18 Right radial arterial approach left heart catheterization, left ventriculography, and coronary angiography. DESCRIPTION OF PROCEDURE: The patient was brought to the cardiac catheterization lab in a fasting state. He received 1 mg of IV Versed for additional sedation. The right wrist was prepped and draped in sterile fashion. Using 1% lidocaine for local anesthesia, a 6 1/2-Zimbabwean sheath was placed in the right radial artery and a standard cocktail administered. Coronary angiography was then completed using a Elrama catheter. LV pressure was then measured using an angled pigtail catheter, followed by pullback. The sheath was removed with a Terumo band placed. There were no complications. FINDINGS: 1. Hemodynamics: Left ventricular pressure is 144/14 with an end diastolic pressure of 24, aortic pressure is 142/80 with a mean of 104. There was no gradient during pullback from left ventricle to the aorta. 2. Left ventriculography shows global hypokinesis, estimated ejection fraction of 40%. 3. Coronary angiography: The left main coronary artery has 10% irregularities. It bifurcates into the LAD and circumflex vessel. The LAD has a 70% stenosis before a very large arcading diagonal branch. Just past the diagonal branch is a focal 80% stenosis. The LAD is diffusely diseased and has at least 70% stenosis in its midsection. The diagonal branch is severely diffusely diseased, but has a high grade 90% proximal stenosis. Circumflex artery has a 99% stenosis before a small marginal branch. The right coronary artery is large and dominant with diffuse calcification and has an eccentric 60% mid stenosis, 40% distal stenosis and 70% diffuse PDA disease. CONCLUSIONS: 1. Impaired LV function, estimated ejection fraction of 40%. 2. Three vessel coronary artery disease. RECOMMENDATIONS Cardiothoracic surgery consult for bypass surgery. Date of Surgery: Mar 02, 2018 Preoperative Diagnosis: Postoperative Diagnosis: Procedure: 1. Urgent Off-pump Coronary Artery Bypass Grafting x 3 with Left Internal Mammary Artery (CARVALHO) to Left Anterior Descending (LAD), reverse saphenous vein graft to the Diagonal 1 (D1), reverse saphenous vein graft to the Posterolateral Branch of the Right Coronary Artery (RPLB) 2. Left Leg Endoscopic Vein Newell 3. Intraoperative Vein Mapping. Surgeon: Owen Eisenberg Seafood Packer(s): Memo Gutierrez Operation and Findings: PREPROCEDURE DIAGNOSES 1. Severe Multi Vessel Coronary Artery Disease. 2. Acute Myocardial Infarction (NSTEMI) 3. Moderate Left Ventricular Dysfunction (EF 40%) POSTPROCEDURE DIAGNOSES Same SURGICAL PROCEDURE 1. Urgent Off-pump Coronary Artery Bypass Grafting x 3 with Left Internal Mammary Artery (CARVALHO) to Left Anterior Descending (LAD), reverse saphenous vein graft to the Diagonal 1 (D1), reverse saphenous vein graft to the Posterolateral Branch of the Right Coronary Artery (RPLB) 2. Left Leg Endoscopic Vein Newell 3. Intraoperative Vein Mapping. SURGEON Owne Eisenberg MD WELLNESS PROGRAM COORDINATOR Jana Gutierrez PA-C ANESTHESIA General endotracheal TAILING HAND GRICELDA Dhillon MD PREPARATION ChloraPrep. COUNTS Needle, sponge, and instrument counts were correct. DRAINS Two 32-Zimbabwean mediastinal tubes. COMPLICATIONS None. INDICATIONS FOR PROCEDURE The patient is a 57-year-old presenting with chest pain and AMI. Patient was noted to have multi-vessel coronary artery disease. The patient is being brought to the operating room for surgical revascularization therapy. PROCEDURE Patient was brought to the operating room and placed supine on the OR table. Following the induction of adequate general endotracheal anesthesia and placement of appropriate monitoring devices, intraoperative vein mapping was performed which revealed marginal but usable-caliber conduit in bilateral thighs. The patient was then prepped and draped in standard sterile fashion. Next, 2500 units of intravenous heparin was given. The left greater saphenous vein was harvested endoscopically. This appeared to be a small but useable- caliber conduit. Simultaneously, a median sternotomy was performed and the left internal mammary artery dissected free off the posterior sternal table. The patient was systemically heparinized and anticoagulation monitored by serial ACT measurements. The internal mammary artery had good pulsatile flow in it and was a good-caliber conduit. The pericardium was then divided in the midline , the cradle created and targets analyzed. At this point, all anastomoses were performed in a beating-heart fashion using the Maquet stabilizing system. The left internal mammary artery was anastomosed to the mid LAD (1.75 mm) in an end- to-side fashion using 7-0 Prolene. Segment of saphenous vein graft was then anastomosed to a diffusely and heavily calcified D1 (2 mm) in an end-to-side fashion using 7-0 Prolene. The final segment of saphenous vein graft was then anastomosed to the RPLB (1.75 mm) in an end-to-side fashion using 7-0 Prolene. The proximal anastomosis was then constructed to the ascending aorta in a running manner using 6-0 Prolene. All anastomotic sites were inspected and appeared to be hemostatic and patent. Protamine solution was given. Strict hemostasis was assured. The closure was undertaken. 2 chest tubes were placed. The pericardium was reapproximated in the midline. The sternum was approximated using sternal wires. The muscular and fascial layer were then closed in 3 layers. The endoscopic vein harvest site was closed in 2 layers. The patient tolerated the procedure well and was transferred to CVICU in stable condition. Owen Eisenberg MD Medications and IVs Current Medications Sodium Chloride (NS Flush) 2 ml UNSCH PRN IVF FLUSH AFTER USING IV ACCESS; Start 02/28/18 at 02:00; Stop 02/28/18 at 03:41; Status DC Diltiazem HCl (Cardizem Inj) 20 mg ONCE ONCE IV Last administered on 02/28/18at 01:58; Start 02/28/18 at 02:00; Stop 02/28/18 at 02:01; Status DC Diltiazem HCl 125 mg/Sodium Chloride 125 ml @ 5 mls/hr TITRATE PRN IV tachycardia Last administered on 02/28/18at 02:12; Start 02/28/18 at 02:00; Stop at 07:51; Status DC Sodium Chloride (NS Flush) 2 ml UNSCH PRN IV FLUSH FLUSH AFTER USING IV ACCESS ; Start 02/28/18 at 02:00; Stop 02/28/18 at 03:41; Status DC Diltiazem HCl (Cardizem Inj) 30 mg BOLUS ONCE IV PUSH ; Start 02/28/18 at 02:30 ; Stop 02/28/18 at 02:31; Status DC Furosemide (Lasix Inj) 40 mg ONCE ONCE IV PUSH Last administered on 02/28/18at 02:57; Start 02/28/18 at 03:00; Stop 02/28/18 at 03:01; Status DC Sodium Chloride (NS Flush) 2 ml UNSCH PRN IV FLUSH FLUSH AFTER USING IV ACCESS ; Start 02/28/18 at 03:30; Stop 03/01/18 at 08:35; Status DC Sodium Chloride (NS Flush) 2 ml BID IV FLUSH Last administered on 02/28/18at 09: 20; Start 02/28/18 at 09:00; Stop 03/01/18 at 08:35; Status DC Acetaminophen (Tylenol) 650 mg Q4H PRN PO TEMP > 100.4 Last administered on 02/28at 22:43; Start 02/28/18 at 03:30; Stop 03/02/18 at 11:18; Status DC Ondansetron HCl (Zofran Inj) 4 mg Q6H PRN IVP NAUSEA OR VOMITING; Start at 03:30 Heparin Sodium (Porcine) (Heparin Inj) 5,000 units Q8H SQ Last administered on 02/28/18at 11:15; Start 02/28/18 at 04:00; Stop 02/28/18 at 12:03; Status DC Naloxone HCl (Narcan Inj) 0.4 mg UNSCH PRN IV PUSH SEE LABEL COMMENTS; Start at 03:30 Senna/Docusate Sodium (Annette-Colace) 1 tab BID PO Last administered on 03/01/18at 20:14; Start 02/28/18 at 09:00 Magnesium Hydroxide (Milk Of Magnesia Liq) 30 ml Q12H PRN PO Mild constipation ; Start 02/28/18 at 03:30 Sennosides (Senokot) 17.2 mg Q12H PRN PO Moderate constipation; Start 02/28/18 at 03:30 Bisacodyl (Dulcolax Supp) 10 mg DAILY PRN RECTAL SEVERE CONSITIPATION/ IF NPO; Start 02/28/18 at 03:30; Stop 03/02/18 at 11:18; Status DC Lactulose (Lactulose Liq) 30 ml DAILY PRN PO SEVERE CONSITIPATION/ IF PO; Start 02/28/18 at 03:30 Albuterol/ Ipratropium (Duoneb Neb) 1 ampule Q4HR NEB PRN NEB SOB/Wheezing; Start 02/28/18 at 03:30; Stop 03/01/18 at 13:23; Status DC Pneumococcal Polyvalent Vaccine (Pneumovax-23 Inj) 25 mcg ONCE ONCE IM Last administered on 03/01/18at 08:50; Start 03/01/18 at 09:00; Stop 03/01/18 at 09:01; Status DC Influenza Virus Vaccine (Flu (Quadrivalent) Vaccine Inj) 0.5 ml ONCE ONCE IM Last administered on 03/01/18at 08:51; Start 03/01/18 at 09:00; Stop 03/01/18 at 09: 01; Status DC Diltiazem HCl (Cardizem Cd) 240 mg DAILY PO Last administered on 03/01/18at 08:39 ; Start 02/28/18 at 09:00 Pharmacy Profile Note 0 ml @ 0 mls/hr UNSCH OTHER ; Start 02/28/18 at 08:00; Stop 03/02/18 at 13:36; Status DC Warfarin Sodium (Coumadin) 5 mg DAILY@1600 PO ; Start 02/28/18 at 16:00; Stop 03/02/18 at 11:18; Status DC Patient Medication Teaching (Coumadin Booklet) 1 ONCE ONCE .XX ; Start 02/28/18 at 16:00; Stop 02/28/18 at 16:01; Status DC Ceftriaxone Sodium 1000 mg/ Sodium Chloride 100 ml @ 200 mls/hr Q24H IV Last administered on 03/01/18at 11:08; Start 02/28/18 at 10:00 Azithromycin (Zithromax) 500 mg DAILY PO Last administered on 03/01/18at 08:40; Start 02/28/18 at 10:00 Heparin Sodium (Porcine) (Heparin Inj) 7,000 units ONCE ONCE IV PUSH Last administered on 02/28/18at 12:42; Start 02/28/18 at 12:00; Stop 02/28/18 at 12:02; Status DC Heparin Sodium (Porcine) (Heparin Inj) 5,000 units UNSCH PRN IV PUSH APTT LESS THAN 25; Start 02/28/18 at 17:45; Stop 03/02/18 at 11:18; Status DC Heparin Sodium (Porcine) (Heparin Inj) 2,500 units UNSCH PRN IV PUSH APTT 25 TO 39 Last administered on 03/01/18at 19:24; Start 02/28/18 at 17:45; Stop 03/02/18 at 11:18; Status DC Heparin Sodium/ Dextrose 250 ml @ 10 mls/hr TITRATE PRN IV Coagulation Management Last administered on 03/01/18at 11:12; Start 02/28/18 at 11:45; Stop 03/02/18 at 11:18; Status DC Dextrose (D50w (Vial) Inj) 50 ml UNSCH PRN IV PUSH HYPOGLYCEMIA-SEE COMMENTS; Start 02/28/18 at 11:45; Stop 03/02/18 at 11:18; Status DC Glucagon (Glucagon Inj) 1 mg UNSCH PRN OTHER HYPOGLYCEMIA-SEE COMMENTS; Start 02/28/18 at 11:45; Stop 03/02/18 at 11:18; Status DC Insulin Aspart (NovoLOG SUPPLEMENTAL SCALE) 1 ACHS SLIDING SCALE SQ Last administered on 03/01/18at 08:00; Start 02/28/18 at 12:00; Stop 03/02/18 at 11:18; Status DC Atorvastatin Calcium (Lipitor) 20 mg HS PO Last administered on 03/01/18at 20:13 ; Start 02/28/18 at 21:00 Lisinopril (Prinivil) 20 mg DAILY PO Last administered on 03/01/18at 08:40; Start 03/01/18 at 09:00; Stop 03/02/18 at 11:18; Status DC Sodium Chloride 1,000 ml @ 100 mls/hr Q10H IV ; Start 02/28/18 at 15:00; Stop at 08:35; Status DC Diphenhydramine HCl (Benadryl) 50 mg SEISMOGRAPH COMPUTER PO ; Start 02/28/18 at 15:00; Stop 03/04/18 at 14:59 Diazepam (Valium) 5 mg SEISMOGRAPH COMPUTER PO ; Start 02/28/18 at 15:00; Stop 03/02/18 at 11: 18; Status DC Nitroglycerin (Nitroglycerin 2% Oint) 0.5 inch Q6HR TOPICAL Last administered on 03/02/18at 05:22; Start 02/28/18 at 18:00; Stop 03/02/18 at 11:18; Status DC Labetalol HCl (Trandate Inj) 10 mg Q6H PRN IV PUSH SEE LABEL COMMENTS; Start at 19:45; Stop 03/02/18 at 11:18; Status DC Heparin Sodium/ Sodium Chloride 2,000 ml @ As Directed STK-MED ONCE IV FLUSH Last administered on 03/01/18 07:13; Start 03/01/18 at 07:13; Stop 03/01/18 at 07: 14; Status DC Midazolam HCl (Versed Inj) 2 mg STK-MED ONCE .ROUTE Last administered on at 07:59; Start 03/01/18 at 07:21; Stop 03/01/18 at 07:22; Status DC Verapamil HCl (Isoptin Inj) 5 mg STK-MED ONCE .ROUTE Last administered on 07:29; Start 03/01/18 at 07:29; Stop 03/01/18 at 07:30; Status DC Heparin Sodium (Porcine) (Heparin Inj) 10,000 units STK-MED ONCE .ROUTE Last administered on 03/01/18at 07:29; Start 03/01/18 at 07:29; Stop 03/01/18 at 07:30; Status DC Nitroglycerin 5 ml @ As Directed STK-MED ONCE .ROUTE Last administered on at 07:29; Start 03/01/18 at 07:29; Stop 03/01/18 at 07:30; Status DC Lidocaine HCl (Xylocaine-Mpf 1% Inj) 30 ml STK-MED ONCE .ROUTE Last administered on 03/01/18at 07:32; Start 03/01/18 at 07:32; Stop 03/01/18 at 07:33; Status DC Miscellaneous Information 1 ONCE ONCE XX ; Start 03/01/18 at 08:30; Stop at 08:33; Status DC Sodium Chloride (NS Flush) 2 ml BID IV FLUSH Last administered on 03/01/18at 08: 40; Start 03/01/18 at 09:00; Stop 03/01/18 at 12:49; Status DC Sodium Chloride (NS Flush) 2 ml UNSCH PRN IV FLUSH FLUSH AFTER USING IV ACCESS ; Start 03/01/18 at 08:30; Stop 03/01/18 at 12:49; Status DC Sodium Chloride 1,000 ml @ 100 mls/hr Q10H IV ; Start 03/01/18 at 08:27; Stop at 16:26; Status DC Bacitracin (Bacitracin Oint Packet) 0.9 gm ONCE ONCE TOP ; Start 03/01/18 at 08: 30; Stop 03/01/18 at 08:33; Status DC Sodium Chloride (NS Flush) 2 ml BID IV FLUSH Last administered on 03/01/18at 20: 14; Start 03/01/18 at 21:00; Stop 03/02/18 at 11:18; Status DC Sodium Chloride (NS Flush) 2 ml UNSCH PRN IV FLUSH FLUSH AFTER USING IV ACCESS ; Start 03/01/18 at 11:00; Stop 03/02/18 at 11:18; Status DC Papaverine HCl 60 mg/Nitroglycerin 100 mcg/Diltiazem HCl 100 mg/Sodium Chloride 100 ml @ 0 mls/hr SEISMOGRAPH COMPUTER IRRIGATION ; Start 03/01/18 at 11:00; Stop 03/01/18 at 16:39; Status DC Cefazolin Sodium 500 mg/Sodium Chloride 505 ml @ 0 mls/hr SEISMOGRAPH COMPUTER IRRIGATION Last administered on 03/02/18at 08:42; Start 03/01/18 at 11:00; Stop 03/02/18 at 11: 18; Status DC Cefazolin Sodium 2000 mg/Sodium Chloride 100 ml @ 150 mls/hr SEISMOGRAPH COMPUTER ONCE IV ; Start 03/01/18 at 10:00; Stop 03/01/18 at 13:17; Status DC Metoprolol Tartrate (Lopressor) 12.5 mg SEISMOGRAPH COMPUTER PO Last administered on at 05:22; Start 03/01/18 at 11:00; Stop 03/02/18 at 11:18; Status DC Chlorhexidine Gluconate (Hibiclens 4% Top Soln) 1 applic SEISMOGRAPH COMPUTER TOPICAL ; Start 03/01/18 at 11:00; Stop 03/02/18 at 11:18; Status DC Insulin Human Regular 100 units/ Sodium Chloride 100 ml @ 3 mls/hr TITRATE PRN IV for blood glucose control; Start 03/01/18 at 11:00; Stop 03/02/18 at 11:18; Status DC Dextrose (D50w (Vial) Inj) 50 ml UNSCH PRN IV PUSH HYPOGLYCEMIA-SEE COMMENTS; Start 03/01/18 at 11:00; Stop 03/02/18 at 11:18; Status DC Guaifenesin (Mucinex Er) 600 mg BID PO Last administered on 03/01/18at 20:13; Start 03/01/18 at 12:30 Albuterol/ Ipratropium (Duoneb Neb) 1 ampule Q6HR NEB NEB Last administered on 03/01/18at 19:38; Start 03/01/18 at 16:00; Stop 03/02/18 at 11:18; Status DC Albuterol/ Ipratropium (Duoneb Neb) 1 ampule Q2HR NEB PRN NEB SHORTNESS OF BREATH; Start 03/01/18 at 12:30; Stop 03/02/18 at 11:18; Status DC Insulin Detemir (Levemir Inj) 5 units Q12HR SQ Last administered on 03/01/18at 20 :14; Start 03/01/18 at 21:00; Stop 03/02/18 at 12:19; Status DC Iohexol (OMNIPAQUE 350 INJ (Circulation Manager)) 100 ml STK-MED ONCE OTHER ; Start at 13:29; Stop 03/01/18 at 13:30; Status DC Iohexol (OMNIPAQUE 350 INJ (Circulation Manager)) 50 ml STK-MED ONCE OTHER ; Start 03/01/18 at 13:29; Stop 03/01/18 at 13:30; Status DC Papaverine HCl 60 mg/Nitroglycerin 100 mcg/Verapamil HCl 100 mg/Sodium Chloride 100 ml @ 0 mls/hr SEISMOGRAPH COMPUTER IRRIGATION Last administered on 03/02/18at 08:45; Start 03/01/18 at 16:45; Stop 03/02/18 at 11:18; Status DC Lactated Ringer's 1,000 ml @ 30 mls/hr Q24H PRN IV SEE LABEL COMMENTS; Start at 04:30; Stop 03/02/18 at 11:18; Status DC Sodium Chloride 500 ml @ 30 mls/hr [id number] PRN IV SEE LABEL COMMENTS; Start 03/02/18 at 04:30; Stop 03/02/18 at 11:18; Status DC Povidone Iodine (Betadine 5% Antisepsis Kit) 1 applic SEISMOGRAPH COMPUTER PRN EACH NARE SEE LABEL COMMENTS; Start 03/02/18 at 04:30; Stop 03/05/18 at 04:29 Chlorhexidine Gluconate (Chlorhexidine 2% Cloth) 3 pack SEISMOGRAPH COMPUTER PRN TOPICAL SEE LABEL COMMENTS; Start 03/02/18 at 04:30; Stop 03/02/18 at 11:18; Status DC Heparin Sodium (Porcine) (Heparin Inj) 40,000 units STK-MED ONCE .ROUTE Last administered on 03/02/18at 06:35; Start 03/02/18 at 06:35; Stop 03/02/18 at 06:36; Status DC Cefazolin Sodium (Ancef Inj) 2,000 mg STK-MED ONCE .ROUTE ; Start 03/02/18 at 06: 35; Stop 03/02/18 at 06:36; Status DC Vancomycin HCl (Vancomycin Inj) 3,000 mg STK-MED ONCE .ROUTE Last administered on 03/02/18at 06:35; Start 03/02/18 at 06:35; Stop 03/02/18 at 06:36; Status DC Vancomycin HCl (Vancomycin Inj) 1,000 mg STK-MED ONCE .ROUTE Last administered on 03/02/18at 07:21; Start 03/02/18 at 07:21; Stop 03/02/18 at 07:22; Status DC Vancomycin HCl (Vancomycin Inj) 3,000 mg STK-MED ONCE .ROUTE ; Start 03/02/18 at 10:39; Stop 03/02/18 at 10:40; Status DC Potassium Chloride (KCl Inj) 4 meq STK-MED ONCE .ROUTE ; Start 03/02/18 at 11:13 ; Stop 03/02/18 at 11:14; Status DC Sodium Chloride (NS Flush) 2 ml BID IV FLUSH ; Start 03/02/18 at 21:00 Sodium Chloride (NS Flush) 2 ml UNSCH PRN IV FLUSH FLUSH AFTER USING IV ACCESS ; Start 03/02/18 at 11:15 Dexmedetomidine HCl 200 mcg/ Sodium Chloride 52 ml @ 4.3 mls/hr TITRATE PRN IV SEDATION; Start 03/02/18 at 12:00 Nitroglycerin/ Dextrose 250 ml @ 1.5 mls/hr TITRATE PRN IV Maintain BP < 140/ 90 mmHg; Start 03/02/18 at 11:30 Dobutamine HCl/ Dextrose 250 ml @ 12.42 mls/ hr Q20H8M PRN IV Rate change per MD; Start 03/02/18 at 12:00 Dopamine HCl/ Dextrose 500 ml @ 9.315 mls/ hr TITRATE PRN IV Maintain MAP > 65 mmHg; Start 03/02/18 at 12:00 Phenylephrine HCl 40 mg/Dextrose 500 ml @ 30 mls/hr TITRATE PRN IV Maintain MAP > 65 mmHg; Start 03/02/18 at 11:30 Clevidipine 50 ml @ 2 mls/hr TITRATE PRN IV Maintain BP < 140/90 mmHg; Start at 11:45 Albumin Human 250 ml @ 250 mls/hr UNSCH PRN IV SEE LABEL COMMENTS; Start at 11:45 Lactated Ringer's 500 ml @ 500 mls/hr Q1H PRN IV SEE LABEL COMMENTS; Start 03/02 at 11:45 Miscellaneous Information (Post-op Orders (for Pharmacy)) STAT ONCE OTHER ; Start 03/02/18 at 12:00; Stop 03/02/18 at 12:03; Status DC Vancomycin HCl 1250 mg/Sodium Chloride 250 ml @ 166.667 mls/hr Q12H IV ; Start 03/02/18 at 20:00; Stop 03/03/18 at 21:29 Aspirin (Aspirin Chew) 81 mg DAILY PO ; Start 03/03/18 at 09:00 Clopidogrel Bisulfate (Plavix) 75 mg DAILY PO ; Start 03/03/18 at 09:00 Pantoprazole Sodium (Protonix) 40 mg DAILY@06 PO ; Start 03/03/18 at 06:00 Amiodarone HCl (Cordarone) 200 mg Q12HR PO ; Start 03/02/18 at 21:00 Acetaminophen (Tylenol) 650 mg Q4H PRN PO TEMPERATURE > 101 F; Start 03/02/18 at 11:45 Acetaminophen (Tylenol Supp) 650 mg Q4H PRN RECTAL TEMPERATURE > 101 F; Start 03/02/18 at 11:45 Acetaminophen 100 ml @ 400 mls/hr Q6H IV Last administered on 03/02/18at 12:39; Start 03/02/18 at 12:00; Stop 03/03/18 at 06:14 Morphine Sulfate (Morphine Inj) 1 mg Q10M PRN IV PUSH PAIN SCALE 1 TO 5; Start 03/02/18 at 11:45 Meperidine HCl (Demerol Inj) 12.5 mg Q4H PRN IV PUSH SEE LABEL COMMENTS; Start 03/02/18 at 12:00 Acetaminophen/ Hydrocodone Bitart ([place] 5-325 Mg) 1 tab Q3H PRN PO PAIN SCALE 1 TO 5; Start 03/02/18 at 11:45 Ketorolac Tromethamine (Toradol Inj) 15 mg Q6H PRN IV PUSH SEE LABEL COMMENTS; Start 03/02/18 at 12:00; Stop 03/04/18 at 11:59 Fentanyl Citrate (fentaNYL INJ) 25 mcg Q1H PRN IV PUSH BREAKTHROUGH PAIN Last administered on 03/02/18at 13:56; Start 03/02/18 at 11:45 Ondansetron HCl (Zofran Inj) 4 mg Q6H PRN IV PUSH NAUSEA OR VOMITING; Start 03/02/18 at 11:15 Hydralazine HCl (Apresoline Inj) 10 mg Q4H PRN IV PUSH SEE LABEL COMMENTS; Start 03/02/18 at 12:00 Metoprolol Tartrate (Lopressor Inj) 2.5 mg Q1H PRN IV PUSH SEE LABEL COMMENTS; Start 03/02/18 at 12:00 Potassium Chloride 100 ml @ 50 mls/hr UNSCH PRN IV SEE LABEL COMMENTS Last administered on 03/02/18at 12:39; Start 03/02/18 at 12:00; Stop 03/02/18 at 12:39; Status DC Potassium Chloride 100 ml @ 50 mls/hr UNSCH PRN IV SEE LABEL COMMENTS Last administered on 03/02/18at 15:48; Start 03/02/18 at 12:00 Potassium Chloride 100 ml @ 50 mls/hr UNSCH PRN IV SEE LABEL COMMENTS; Start 03/02/18 at 12:00 Potassium Chloride (KCl) 20 meq UNSCH PRN PO SEE LABEL COMMENTS; Start 03/02/18 at 12:00 Potassium Chloride (KCl) 40 meq UNSCH PRN PO SEE LABEL COMMENTS; Start 03/02/18 at 12:00 Magnesium Sulfate 2 gm/Sodium Chloride 104 ml @ 100 mls/hr UNSCH PRN IV SEE LABEL COMMENTS; Start 03/02/18 at 12:00 Magnesium Sulfate 2 gm/Sodium Chloride 104 ml @ 50 mls/hr UNSCH PRN IV SEE LABEL COMMENTS; Start 03/02/18 at 12:00 Calcium Chloride 1 gm/Sodium Chloride 110 ml @ 100 mls/hr UNSCH PRN IV SEE LABEL COMMENTS Last administered on 03/02/18at 12:13; Start 03/02/18 at 12:00 Calcium Chloride (Calcium Chloride Inj) 0.5 gm UNSCH PRN IV PUSH SEE LABEL COMMENTS; Start 03/02/18 at 12:00 Insulin Human Regular 100 units/ Sodium Chloride 100 ml @ 3 mls/hr TITRATE PRN IV for blood glucose control; Start 03/02/18 at 12:00 Dextrose (D50w (Vial) Inj) 50 ml UNSCH PRN IV PUSH HYPOGLYCEMIA-SEE COMMENTS; Start 03/02/18 at 12:00 Sodium Bicarbonate (Sodium Bicarbonate 8.4% Inj) 50 meq UNSCH PRN IV PUSH SEE LABEL COMMENTS; Start 03/02/18 at 12:00 Sodium Bicarbonate (Sodium Bicarbonate 8.4% Inj) 100 meq UNSCH PRN IV PUSH SEE LABEL COMMENTS; Start 03/02/18 at 12:00 Albuterol/ Ipratropium (Duoneb Neb) 1 ampule Q6HR NEB NEB ; Start 03/02/18 at 16 :00 Albuterol/ Ipratropium (Duoneb Neb) 1 ampule Q2HR NEB PRN NEB WHEEZING; Start 03/02/18 at 12:00 Racepinephrine (Racepinephrine 2.25% Neb) 0.5 ml UNSCH X1 PRN NEB STRIDOR; Start 03/02/18 at 12:00; Stop 03/05/18 at 11:59 Midazolam HCl (Versed Inj) 10 mg STK-MED ONCE .ROUTE ; Start 03/02/18 at 12:26; Stop 03/02/18 at 12:27; Status DC Fentanyl Citrate (fentaNYL INJ) 750 mcg STK-MED ONCE .ROUTE ; Start 03/02/18 at 12:26; Stop 03/02/18 at 12:27; Status DC Fentanyl Citrate (fentaNYL INJ) 250 mcg STK-MED ONCE .ROUTE ; Start 03/02/18 at 12:27; Stop 03/02/18 at 12:28; Status DC Glucagon (Glucagon Inj) 1 mg UNSCH PRN OTHER HYPOGLYCEMIA-SEE COMMENTS; Start 03/02/18 at 13:45 A/P Problem List: (1) Atrial fibrillation with RVR ICD Code: I48.91 - Unspecified atrial fibrillation Status: Acute (2) CHF (congestive heart failure) ICD Code: I50.9 - Heart failure, unspecified Status: Acute (3) Diabetes ICD Code: E11.9 - Type 2 diabetes mellitus without complications Status: Acute (4) COPD (chronic obstructive pulmonary disease) ICD Code: J44.9 - Chronic obstructive pulmonary disease, unspecified Status: Acute Assessment and Plan This is a pleasant 57-year-old male patient with a known medical history of hypertension, diabetes, dyslipidemia, tobaccoism and history of meningitis with subsequent right eye blindness who presented to the ED via private transportation with sudden dyspnea and chest pain upon awakening this morning. Atrial fibrillation with rapid ventricular response with associated dyspnea and chest pain - EKG upon presentation showing A. fib RVR. Was given Cardizem IV push 2. Was placed on a Cardizem drip. At the time of assessment patient is in normal sinus rhythm, no complaints of dyspnea or chest pain and now on p.o. Cardizem. -Cardiology was consulted, appreciate input and recommendations. Initial troponin 0.03. Second troponin drawn, now 2.8. [facility] with Dr. Serna. Positive troponins - Will be placed on heparin drip per protocol with DE bolus. Cardiology initially placed patient on Coumadin, will hold at this time. - Continue cardiac telemetry, monitor for any further arrhythmias. - Keep n.p.o. for now until after cardiac catheterization. - Further hospitalization and treatment plan will depend on findings be a cardiac catheterization. We will continue to follow clinically. Had cardiac catheterization on March 01 needs coronary artery bypass -- cardiovascular surgery has been counseled Community acquired pneumonia - Chest x-ray reviewed showing diffuse interstitial infiltrates. Started on ceftriaxone and azithromycin. - Monitor for infection. Afebrile since presentation. Mild leukocytosis, white blood cell 12.9. Follow CBC. BMP reviewed essentially unremarkable. - Supplemental O2 as needed, keep sats above 92%. Currently on 2LNC. Continue to monitor. Congestive heart failure, unspecified. - Patient is from [place]. No prior records. Echocardiogram ordered, pending. Follow. Patient is also undergoing cardiac cath today. - BNP 303 on presentation. Was given Lasix x 1 in ED. - Monitor intake and output. Negative fluid balance at this time. Will await cardiology recs for diuretics if needed depending on ECHO. Type 2 diabetes mellitus, chronic: Accu-Chek before meals at bedtime, sliding scale, cover as needed. Monitor BGM trends. Hemoglobin a1c pending. Will add lipid panel. Hypertension, chronic: Continue home JOLANTA inhibitor. Monitor BP trends. COPD not in exacerbation Tobaccoism - Duonebs as needed for wheezing. - Encouraged cessation. Nicotine patch offered. Coronary artery disease needs coronary artery bypass graft cardiovascular surgery has been consult has triple-vessel disease 4-6 SP CABG TODAY Urgent Off-pump Coronary Artery Bypass Grafting x 3 with Left Internal Mammary Artery (CARVALHO) to Left Anterior Descending (LAD), reverse saphenous vein graft to the Diagonal 1 (D1), reverse saphenous vein graft to the Posterolateral Branch of the Right Coronary Artery (RPLB) HYPOKALEMIA- REPLACE BY PROTOCOLS AM LABS DVT prophylaxis: Heparin drip. Discharge Planning Pending clearance by cardiology and cardiovascular surgery Problem Qualifiers (1) CHF (congestive heart failure): Qualified Codes: I50.9 - Heart failure, unspecified (2) COPD (chronic obstructive pulmonary disease): Qualified Codes: J44.9 - Chronic obstructive pulmonary disease, unspecified Felix Gutierrez DO Mar 02, 2018 16:38
[2018-03-02 17:21] LABS: HEMOGLOBIN A1C 8.3 % (4.3-6.0)
[2018-03-02] MEDS: VANCOMYCIN INJ 1,250 MG in SODIUM CHLOR 0.9% 250 ML INJ 250 ML IV SCH (20:43)
[2018-03-02] MEDS: ATORVASTATIN 20 MG TAB PO SCH (20:44)
[2018-03-02] MEDS: AMIODARONE 200 MG TAB PO SCH (20:44)
[2018-03-02] MEDS: ACETAMINOPHEN/HYDROcodone 325 MG/5 MG TAB PO PRN (21:41)
[2018-03-03] VITALS (20 sets, daily range): BP systolic 122–172; BP diastolic 55–81; PULSE 74–103; RESP 18–20; TEMP 98–98.7; O2SAT 93–97
[2018-03-03] MEDS: RESP: ALBUTEROL 2.5 MG/IPRATROPIUM 0.5 MG NEB (SCH) NEB ×5 (02:48→19:38)
[2018-03-03 05:09] LABS: AUTOMATED NEUTROPHIL # 7.4 TH/MM3 (1.8-7.7); BASOPHIL # 0.1 TH/MM3 (0-0.2); BASOPHIL % 0.6 % (0.0-2.0); EOSINOPHIL # 0.2 TH/MM3 (0-0.4); EOSINOPHIL % 2.1 % (0.0-4.0); HEMATOCRIT 34.4 % (39.0-51.0); HEMOGLOBIN 12.3 GM/DL (13.0-17.0); LYMPH % 18.7 % (9.0-44.0); MEAN CELL VOLUME 82.6 FL (80.0-100.0); MEAN CORPUSCULAR HEMOGLOBIN 29.4 PG (27.0-34.0); MEAN CORPUSCULAR HGB CONC 35.6 % (32.0-36.0); MEAN PLATELET VOLUME 8.4 FL (7.0-11.0); MONO % 7.4 % (0.0-8.0); MONOCYTE # 0.8 TH/MM3 (0-0.9); NEUT % 71.2 % (16.0-70.0); PLATELET COUNT 227 TH/MM3 (150-450); RED BLOOD COUNT 4.17 MIL/MM3 (4.50-5.90); WHITE BLOOD COUNT 10.4 TH/MM3 (4.0-11.0)
[2018-03-03 05:27] LABS: ALBUMIN 2.6 GM/DL (3.4-5.0); AST (GOT) 12 U/L (15-37); BICARBONATE 23.5 MEQ/L (21.0-32.0); BLOOD UREA NITROGEN 8 MG/DL (7-18); CALCIUM 7.7 MG/DL (8.5-10.1); CHLORIDE 105 MEQ/L (98-107); CREATININE 0.82 MG/DL (0.60-1.30); GLOMERULAR FILTRATION RATE 96 ML/MIN (>89); GLUCOSE,RANDOM 100 MG/DL (74-106); MAGNESIUM 2.1 MG/DL (1.5-2.5); SODIUM (NA) 136 MEQ/L (136-145)
[2018-03-03 05:29] LABS: INTERNATIONAL NORMALIZED RATIO 1.1 RATIO; PROTHROMBIN TIME - PATIENT 11.3 SEC (9.8-11.6)
[2018-03-03] MEDS: ACETAMINOPHEN/HYDROcodone 325 MG/5 MG TAB PO PRN ×5 (05:29→21:35)
[2018-03-03 05:31] LABS: ALKALINE PHOSPHATASE 67 U/L (45-117); ALT (GPT) 11 U/L (12-78); TOTAL BILIRUBIN ADULT 0.7 MG/DL (0.2-1.0); TOTAL PROTEIN 5.5 GM/DL (6.4-8.2)
[2018-03-03] MEDS: ACETAMINOPHEN 1000 MG/100 ML 100 ML IV SCH (05:32)
[2018-03-03] MEDS: PANTOPRAZOLE SOD 40 MG DELAYED RELEASE TAB PO SCH (05:32)
--- NOTE | 2018-03-03 06:37 | RADRPT ---
EXAM DATE/TIME: 03/03/2018 05:48 [facility] COMPARISON: CHEST SINGLE AP, March 02, 2018, 13:15. INDICATIONS : Shortness of breath, possible pulmonary disease. MEDICAL HISTORY : Cardiovascular disease. Hypertension Gastroesophageal reflux disease. SURGICAL HISTORY : CABG. Cholecystectomy. ENCOUNTER: Subsequent ACUITY: 3 days PAIN SCORE: 10/10 LOCATION: Bilateral chest FINDINGS: Single AP view of the chest. Median sternotomy wires are present. Left-sided chest tube remains in pl roshni. Left subclavian central venous catheter remains in place. Endotracheal tube and nasogastric tube no longer seen. Mild patchy bilateral lower lung zone opacity likely representing atelectasis. CONCLUSION: Interval removal of endotracheal tube and nasogastric tube. Lung volumes have decreased with mild pat delmi bilateral lower lung zone opacity likely representing atelectasis. Derek White MD on March 03, 2018 at 6:35 Board Certified Radiologist. This report was verified electronically.
[2018-03-03] MEDS: VANCOMYCIN INJ 1,250 MG in SODIUM CHLOR 0.9% 250 ML INJ 250 ML IV SCH ×2 (08:00→20:00)
[2018-03-03] MEDS: DILTIAZEM-CD 240 MG CAP ER PO SCH (09:00)
[2018-03-03] MEDS: guaiFENesin E.R. 600 MG TAB PO SCH ×2 (09:00→20:34)
[2018-03-03] MEDS: ASPIRIN 81 MG CHEW TAB PO SCH (09:00)
[2018-03-03] MEDS: DOCUSATE SODIUM 50 MG/SENNA 8.6 MG TAB PO SCH (09:00)
[2018-03-03] MEDS: AZITHROMYCIN 250 MG TAB PO SCH (09:00)
[2018-03-03] MEDS: AMIODARONE 200 MG TAB PO SCH ×2 (09:00→20:34)
[2018-03-03] MEDS: SODIUM CHLORIDE 0.9% FLUSH 10 ML FLUSH IV FLUSH SCH ×2 (09:00→20:36)
[2018-03-03] MEDS: CLOPIDOGREL 75 MG TAB PO SCH (09:00)
[2018-03-03] MEDS: cefTRIAXone INJ 1,000 MG in SODIUM CHLORIDE 0.9% INJ 100 ML IV SCH (10:00)
[2018-03-03] MEDS: INSULIN ASPART SUPPLEMENTAL SCALE SQ SCH ×3 (10:00→21:39)
[2018-03-03] MEDS ORDERED: GLUCAGON 1 MG/ML VIAL OTHER PRN (10:00)
[2018-03-03] MEDS ORDERED: DEXTROSE 50% IN WATER 50 ML VIAL(D50) IV PUSH PRN (10:00)
[2018-03-03] MEDS ORDERED: SOD PHOSPHATE/SOD BIPHOSPHATE (ADULT) ENEMA 133ML RECTAL PRN (10:00)
[2018-03-03] MEDS ORDERED: BISACODYL 10 MG SUPP RECTAL PRN (10:00)
--- NOTE | 2018-03-03 10:00 | PD.CAR.PN ---
CVT Progress Note Subjective/Hospital Course: 57 yo with DM presenting with chest pain and NSTEMI. Noted to be in atrial fibrillation with RVR. Converted to NSR. Cath with multi-vessel CAD 03/02 SURGICAL PROCEDURE 1. Urgent Off-pump Coronary Artery Bypass Grafting x 3 with Left Internal Mammary Artery (CARVALHO) to Left Anterior Descending (LAD), reverse saphenous vein graft to the Diagonal 1 (D1), reverse saphenous vein graft to the Posterolateral Branch of the Right Coronary Artery (RPLB) 2. Left Leg Endoscopic Vein [place] 3. Left Atrial Appendage Excision 4. Intraoperative Vein Mapping. 03/03 Doing well In NSR Transfer [facility] Ambulate Objective: Vital Signs Date Time Temp Pulse Resp B/P (MAP) Pulse Ox O2 Delivery O2 Flow Rate FiO2 03/03/18 08:26 95 Nasal Cannula 3.00 03/03/18 06:43 97 Nasal Cannula 2.00 03/03/18 05:30 90 Nasal Cannula 3.00 03/03/18 04:00 90 03/03/18 04:00 93 Room Air 03/03/18 03:25 98.1 94 20 123/77 (92) 97 122/55 (77) 03/03/18 03:25 97 Nasal Cannula 3.00 03/02/18 23:30 95 Nasal Cannula 3.00 03/02/18 23:30 98.4 89 20 131/77 (95) 95 139/56 (83) 03/02/18 23:00 89 03/02/18 22:14 96 Nasal Cannula 3.00 03/02/18 19:45 97.4 85 18 127/79 (95) 97 143/58 (86) 03/02/18 19:45 97 Nasal Cannula 3.00 03/02/18 19:00 80 03/02/18 15:00 94 Nasal Cannula 3.00 03/02/18 15:00 71 03/02/18 15:00 97.6 73 16 112/72 (85) 94 116/53 (74) 03/02/18 14:10 97 Nasal Cannula 4.00 03/02/18 14:10 97 Nasal Cannula 4 03/02/18 13:25 Nasal Cannula 36 40 03/02/18 13:10 50 03/02/18 13:00 62 03/02/18 12:00 96 50 03/02/18 12:00 98.2 70 15 101/68 (79) 98 96/44 (61) 03/02/18 12:00 50 Labs: Laboratory Tests Test 03/03/18 04:10 White Blood Count 10.4 TH/MM3 (4.0-11.0) Red Blood Count 4.17 MIL/MM3 (4.50-5.90) Hemoglobin 12.3 GM/DL (13.0-17.0) Hematocrit 34.4 % (39.0-51.0) Mean Corpuscular Volume 82.6 FL (80.0-100.0) Mean Corpuscular Hemoglobin 29.4 PG (27.0-34.0) Mean Corpuscular Hemoglobin Concent 35.6 % (32.0-36.0) Red Cell Distribution Width 14.0 % (11.6-17.2) Platelet Count 227 TH/MM3 (150-450) Mean Platelet Volume 8.4 FL (7.0-11.0) Neutrophils (%) (Auto) 71.2 % (16.0-70.0) Lymphocytes (%) (Auto) 18.7 % (9.0-44.0) Monocytes (%) (Auto) 7.4 % (0.0-8.0) Eosinophils (%) (Auto) 2.1 % (0.0-4.0) Basophils (%) (Auto) 0.6 % (0.0-2.0) Neutrophils # (Auto) 7.4 TH/MM3 (1.8-7.7) Lymphocytes # (Auto) 2.0 TH/MM3 (1.0-4.8) Monocytes # (Auto) 0.8 TH/MM3 (0-0.9) Eosinophils # (Auto) 0.2 TH/MM3 (0-0.4) Basophils # (Auto) 0.1 TH/MM3 (0-0.2) CBC Comment DIFF FINAL Differential Comment Prothrombin Time 11.3 SEC (9.8-11.6) Prothromb Time International Ratio 1.1 RATIO Blood Urea Nitrogen 8 MG/DL (7-18) Creatinine 0.82 MG/DL (0.60-1.30) Random Glucose 100 MG/DL (74-106) Total Protein 5.5 GM/DL (6.4-8.2) Albumin 2.6 GM/DL (3.4-5.0) Calcium Level 7.7 MG/DL (8.5-10.1) Phosphorus Level 3.0 MG/DL (2.5-4.9) Magnesium Level 2.1 MG/DL (1.5-2.5) Alkaline Phosphatase 67 U/L (45-117) Aspartate Amino Transf (AST/SGOT) 12 U/L (15-37) Alanine Aminotransferase (ALT/SGPT) 11 U/L (12-78) Total Bilirubin 0.7 MG/DL (0.2-1.0) Sodium Level 136 MEQ/L (136-145) Potassium Level 3.6 MEQ/L (3.5-5.1) Chloride Level 105 MEQ/L (98-107) Carbon Dioxide Level 23.5 MEQ/L (21.0-32.0) Anion Gap 8 MEQ/L (5-15) Estimat Glomerular Filtration Rate 96 ML/MIN (>89) Result Diagram: 03/03/18 0410 03/03/18 0410 (1) Atrial fibrillation with RVR (2) Coronary artery disease (3) S/P CABG (coronary artery bypass graft) (4) Diabetes (5) COPD (chronic obstructive pulmonary disease) Problem Qualifiers (1) COPD (chronic obstructive pulmonary disease): Qualified Codes: J44.9 - Chronic obstructive pulmonary disease, unspecified Owen Eisenberg MD Mar 03, 2018 10:00
[2018-03-03] MEDS ORDERED: METOPROLOL TARTRATE 25 MG TAB PO SCH (11:00)
--- NOTE | 2018-03-03 14:27 | HHI.PR ---
Subjective Remarks This is a pleasant 57-year-old male patient with a known medical history of hypertension, diabetes, dyslipidemia, tobaccoism and history of meningitis with subsequent right eye blindness who presented to the ED via private transportation with sudden dyspnea and chest pain. Patient states he woke up this morning around 0100 "gasping for air" and "could not catch his breath". Patient [facility] right [facility] and was brought here pretty quickly after episode began. Patient states that his dyspnea improved upon presentation to hospital with no recognizable alleviating factors. Patient states he did not have chest pain during episode but felt more but tightness in his midsternal chest that came and went with deep breathing. Denied any radiation of chest tightness. Denied any associated nausea, vomiting, or diaphoresis. Patient denies ever having this type of dyspnea or chest tightness in the past. Denies any recent illness including fever, chills, cough, abdominal pain, nausea, vomiting, diarrhea or dysuria. Patient does admit to smoking 1 pack per day of cigarettes since his early 20s. Patient just moved here from [place], has not established with the PCP. Does have a history of diabetes on metformin and glipizide. 4-5 artery catheterization today. Has multivessel disease. Cardiovascular surgery has been consulted regarding need for CABG. I discussed with patient and RN and case management patient states he does not need anything For his smoking issues Follow diabetes and other issues while he is here 4-6 HAD CABG TODAY SEEN POST OP NO NEW COMPLAINTS LOOKS COMFORTABLE NO SOB, NO CHEST PAIN DW RN AND PT AM LABS 4-7 MOVED OUT OF ICU TODAY SOME CHEST TENDERNESS FROM SURGERY NOT THE SAME THE CHEST PAIN PRIOR TO SURGERY OCC COUGH NO SOB, NO CHEST PAIN CHEST TUBE IN PLACE DW RN AND PATIENT AND CASE MANAGEMENT Objective Vitals Vital Signs Date Time Temp Pulse Resp B/P (MAP) Pulse Ox O2 Delivery O2 Flow Rate FiO2 03/03/18 08:26 95 Nasal Cannula 3.00 03/03/18 07:00 82 03/03/18 07:00 98.2 82 18 131/76 (94) 97 Arterial Line 03/03/18 07:00 97 Nasal Cannula 2.00 03/03/18 06:43 97 Nasal Cannula 2.00 03/03/18 05:30 90 Nasal Cannula 3.00 03/03/18 04:00 90 03/03/18 04:00 93 Room Air 03/03/18 03:25 98.1 94 20 123/77 (92) 97 122/55 (77) 03/03/18 03:25 97 Nasal Cannula 3.00 03/02/18 23:30 95 Nasal Cannula 3.00 03/02/18 23:30 98.4 89 20 131/77 (95) 95 139/56 (83) 03/02/18 23:00 89 03/02/18 22:14 96 Nasal Cannula 3.00 03/02/18 19:45 97.4 85 18 127/79 (95) 97 143/58 (86) 03/02/18 19:45 97 Nasal Cannula 3.00 03/02/18 19:00 80 03/02/18 15:00 94 Nasal Cannula 3.00 03/02/18 15:00 71 03/02/18 15:00 97.6 73 16 112/72 (85) 94 116/53 (74) I/O 03/02/18 03/02/18 03/02/18 03/03/18 03/03/18 03/03/18 06:59 14:59 22:59 06:59 14:59 22:59 Intake Total 240 ml 4360 ml 680 ml 750 ml 480 ml Output Total 350 ml 700 ml 865 ml Balance 240 ml 4010 ml -20 ml -115 ml 480 ml Intake Oral 240 ml 480 ml 300 ml 480 ml IV Total 310 ml 200 ml 450 ml Autotransfusion 250 ml Other 3800 ml Output Urine Total 150 ml 450 ml 595 ml Gastric Drainage Total 0 ml Chest Tube Drainage Total 250 ml 270 ml Estimated Blood Loss 200 ml # Voids 2 # Bowel Movements 0 Result Diagram: 03/03/1840903/03/18409 Other Results Laboratory Tests Test 02/28/18 20:45 03/01/18 06:07 03/01/18 14:16 03/01/18 18:04 Activated Partial Thromboplast Time 31.3 SEC 28.4 SEC Total Creatine Kinase 122 U/L Troponin I 1.77 NG/ML White Blood Count 10.0 TH/MM3 Red Blood Count 5.46 MIL/MM3 Hemoglobin 15.9 GM/DL Hematocrit 44.9 % Mean Corpuscular Volume 82.4 FL Mean Corpuscular Hemoglobin 29.2 PG Mean Corpuscular Hemoglobin Concent 35.4 % Red Cell Distribution Width 13.9 % Platelet Count 252 TH/MM3 Mean Platelet Volume 8.4 FL Neutrophils (%) (Auto) 57.2 % Lymphocytes (%) (Auto) 30.6 % Monocytes (%) (Auto) 5.7 % Eosinophils (%) (Auto) 5.1 % Basophils (%) (Auto) 1.4 % Neutrophils # (Auto) 5.7 TH/MM3 Lymphocytes # (Auto) 3.1 TH/MM3 Monocytes # (Auto) 0.6 TH/MM3 Eosinophils # (Auto) 0.5 TH/MM3 Basophils # (Auto) 0.1 TH/MM3 CBC Comment DIFF FINAL Differential Comment Prothrombin Time 10.6 SEC Prothromb Time International Ratio 1.0 RATIO Blood Urea Nitrogen 10 MG/DL Creatinine 0.92 MG/DL Random Glucose 201 MG/DL Calcium Level 8.9 MG/DL Sodium Level 138 MEQ/L Potassium Level 3.2 MEQ/L Chloride Level 103 MEQ/L Carbon Dioxide Level 25.1 MEQ/L Anion Gap 10 MEQ/L Estimat Glomerular Filtration Rate 84 ML/MIN Hemoglobin A1c 8.3 % Total Bilirubin 0.5 MG/DL Direct Bilirubin 0.1 MG/DL Indirect Bilirubin 0.4 MG/DL Aspartate Amino Transf (AST/SGOT) 19 U/L Alanine Aminotransferase (ALT/SGPT) 10 U/L Alkaline Phosphatase 102 U/L Total Protein 7.3 GM/DL Albumin 3.4 GM/DL Urine Color YELLOW Urine Turbidity CLEAR Urine pH 6.5 Urine Specific [place] 1.050 Urine Protein 100 mg/dL Urine Glucose (UA) 70 mg/dL Urine Ketones NEG mg/dL Urine Occult Blood NEG Urine Nitrite NEG Urine Bilirubin NEG Urine Urobilinogen 2.0 MG/DL Urine Leukocyte Esterase NEG Urine RBC 1 /hpf Urine Mucus FEW /lpf Microscopic Urinalysis Comment CULT NOT INDICATED Nasal Screen MRSA (PCR) MRSA DETECTED Test 03/02/18 02:00 03/02/18 03:35 03/03/18 04:10 Prothrombin Time 10.7 SEC 11.3 SEC Prothromb Time International Ratio 1.1 RATIO 1.1 RATIO Activated Partial Thromboplast Time 30.6 SEC Blood Urea Nitrogen 11 MG/DL 8 MG/DL Creatinine 0.87 MG/DL 0.82 MG/DL Random Glucose 147 MG/DL 100 MG/DL Total Protein 7.0 GM/DL 5.5 GM/DL Albumin 3.1 GM/DL 2.6 GM/DL Calcium Level 8.8 MG/DL 7.7 MG/DL Phosphorus Level 3.8 MG/DL 3.0 MG/DL Magnesium Level 1.9 MG/DL 2.1 MG/DL Alkaline Phosphatase 97 U/L 67 U/L Aspartate Amino Transf (AST/SGOT) 14 U/L 12 U/L Alanine Aminotransferase (ALT/SGPT) 13 U/L 11 U/L Total Bilirubin 0.5 MG/DL 0.7 MG/DL Sodium Level 137 MEQ/L 136 MEQ/L Potassium Level 3.2 MEQ/L 3.6 MEQ/L Chloride Level 103 MEQ/L 105 MEQ/L Carbon Dioxide Level 24.5 MEQ/L 23.5 MEQ/L Anion Gap 10 MEQ/L 8 MEQ/L Estimat Glomerular Filtration Rate 90 ML/MIN 96 ML/MIN Hemoglobin A1c 8.3 % Free Thyroxine 0.97 NG/DL Thyroid Stimulating Hormone 3rd Gen 4.750 uIU/ML White Blood Count 10.7 TH/MM3 10.4 TH/MM3 Red Blood Count 5.21 MIL/MM3 4.17 MIL/MM3 Hemoglobin 15.2 GM/DL 12.3 GM/DL Hematocrit 42.8 % 34.4 % Mean Corpuscular Volume 82.2 FL 82.6 FL Mean Corpuscular Hemoglobin 29.1 PG 29.4 PG Mean Corpuscular Hemoglobin Concent 35.4 % 35.6 % Red Cell Distribution Width 14.1 % 14.0 % Platelet Count 238 TH/MM3 227 TH/MM3 Mean Platelet Volume 8.4 FL 8.4 FL Neutrophils (%) (Auto) 65.9 % 71.2 % Lymphocytes (%) (Auto) 22.3 % 18.7 % Monocytes (%) (Auto) 6.5 % 7.4 % Eosinophils (%) (Auto) 4.4 % 2.1 % Basophils (%) (Auto) 0.9 % 0.6 % Neutrophils # (Auto) 7.1 TH/MM3 7.4 TH/MM3 Lymphocytes # (Auto) 2.4 TH/MM3 2.0 TH/MM3 Monocytes # (Auto) 0.7 TH/MM3 0.8 TH/MM3 Eosinophils # (Auto) 0.5 TH/MM3 0.2 TH/MM3 Basophils # (Auto) 0.1 TH/MM3 0.1 TH/MM3 CBC Comment DIFF FINAL DIFF FINAL Differential Comment Imaging Last Impressions Chest X-Ray 03/03/18 0500 Signed Impressions: Service Date/Time: Saturday, March 03, 2018 05:48 - CONCLUSION: Interval removal of endotracheal tube and nasogastric tube. Lung volumes have decreased with mild patchy bilateral lower lung zone opacity likely representing atelectasis. Derek White MD Lower Extremity Ultrasound 03/01/18 1410 Signed Impressions: Service Date/Time: February 13:03 - CONCLUSION: 1. Vein mapping as above. Vini Cook MD Chest CT 03/01/180 Signed Impressions: Service Date/Time: , March 01, 2018 15:07 - CONCLUSION: 1. COPD changes. 2. Cardiomegaly with extensive atherosclerotic plaquing in the coronary arteries. 3. Renal stone on the left. Vini Cook MD Carotid Artery Ultrasound 03/01/18 1410 Signed Impressions: Service Date/Time: February 12:08 - CONCLUSION: Hemodynamic parameters are borderline abnormal and there is evidence of bilateral plaque formation at the common and internal carotid arteries. The borderline abnormality suggest 50-70%% stenoses. Jake Penaloza MD Objective Remarks GENERAL: Awake alert oriented 3 talkative and cooperative appears stated age has already had cardiac catheterization today SKIN: Warm and dry. HEAD: Atraumatic. Normocephalic. EYES: Pupils equal and round. No scleral icterus. No injection or drainage. Extraocular muscles intact ENT: No nasal bleeding or discharge. Mucous membranes pink and moist. Tongue is midline NECK: Trachea midline. No JVD. CARDIOVASCULAR: Regular rate and rhythm. S1-S2 no S3 or S4 RESPIRATORY: No accessory muscle use. Clear to auscultation. Breath sounds equal bilaterally. GASTROINTESTINAL: Abdomen soft, non-tender, nondistended. Hepatic and splenic margins not palpable. MUSCULOSKELETAL: Extremities without clubbing, cyanosis, or edema. No obvious deformities. NEUROLOGICAL: Awake and alert. No obvious cranial nerve deficits. Motor grossly within normal limits. Five out of 5 muscle strength in the arms and legs. Normal speech. PSYCHIATRIC: Appropriate mood and affect; insight and judgment normal. Procedures 03-01-18 Right radial arterial approach left heart catheterization, left ventriculography, and coronary angiography. DESCRIPTION OF PROCEDURE: The patient was brought to the cardiac catheterization lab in a fasting state. He received 1 mg of IV Versed for additional sedation. The right wrist was prepped and draped in sterile fashion. Using 1% lidocaine for local anesthesia, a 6 1/2-Jamaican sheath was placed in the right radial artery and a standard cocktail administered. Coronary angiography was then completed using a Aguirre catheter. LV pressure was then measured using an angled pigtail catheter, followed by pullback. The sheath was removed with a Terumo band placed. There were no complications. FINDINGS: 1. Hemodynamics: Left ventricular pressure is 144/14 with an end diastolic pressure of 24, aortic pressure is 142/80 with a mean of 104. There was no gradient during pullback from left ventricle to the aorta. 2. Left ventriculography shows global hypokinesis, estimated ejection fraction of 40%. 3. Coronary angiography: The left main coronary artery has 10% irregularities. It bifurcates into the LAD and circumflex vessel. The LAD has a 70% stenosis before a very large arcading diagonal branch. Just past the diagonal branch is a focal 80% stenosis. The LAD is diffusely diseased and has at least 70% stenosis in its midsection. The diagonal branch is severely diffusely diseased, but has a high grade 90% proximal stenosis. Circumflex artery has a 99% stenosis before a small marginal branch. The right coronary artery is large and dominant with diffuse calcification and has an eccentric 60% mid stenosis, 40% distal stenosis and 70% diffuse PDA disease. CONCLUSIONS: 1. Impaired LV function, estimated ejection fraction of 40%. 2. Three vessel coronary artery disease. RECOMMENDATIONS Cardiothoracic surgery consult for bypass surgery. Date of Surgery: Mar 02, 2018 Preoperative Diagnosis: Postoperative Diagnosis: Procedure: 1. Urgent Off-pump Coronary Artery Bypass Grafting x 3 with Left Internal Mammary Artery (CARVALHO) to Left Anterior Descending (LAD), reverse saphenous vein graft to the Diagonal 1 (D1), reverse saphenous vein graft to the Posterolateral Branch of the Right Coronary Artery (RPLB) 2. Left Leg Endoscopic Vein [place] 3. Intraoperative Vein Mapping. Surgeon: Owen Eisenberg Procurement Accountant(s): A Matt Operation and Findings: PREPROCEDURE DIAGNOSES 1. Severe Multi Vessel Coronary Artery Disease. 2. Acute Myocardial Infarction (NSTEMI) 3. Moderate Left Ventricular Dysfunction (EF 40%) POSTPROCEDURE DIAGNOSES Same SURGICAL PROCEDURE 1. Urgent Off-pump Coronary Artery Bypass Grafting x 3 with Left Internal Mammary Artery (CARVALHO) to Left Anterior Descending (LAD), reverse saphenous vein graft to the Diagonal 1 (D1), reverse saphenous vein graft to the Posterolateral Branch of the Right Coronary Artery (RPLB) 2. Left Leg Endoscopic Vein [place] 3. Intraoperative Vein Mapping. SURGEON Owen Eisenberg MD INTERVENTIONAL PHYSICIAN Jana Gutierrez PA-C ANESTHESIA General endotracheal EXTRUDING PRESS OPERATOR GRICELDA Dhillon MD PREPARATION ChloraPrep. COUNTS Needle, sponge, and instrument counts were correct. DRAINS Two 32-Jamaican mediastinal tubes. COMPLICATIONS None. INDICATIONS FOR PROCEDURE The patient is a 57-year-old presenting with chest pain and AMI. Patient was noted to have multi-vessel coronary artery disease. The patient is being brought to the operating room for surgical revascularization therapy. PROCEDURE Patient was brought to the operating room and placed supine on the OR table. Following the induction of adequate general endotracheal anesthesia and placement of appropriate monitoring devices, intraoperative vein mapping was performed which revealed marginal but usable-caliber conduit in bilateral thighs. The patient was then prepped and draped in standard sterile fashion. Next, 2500 units of intravenous heparin was given. The left greater saphenous vein was harvested endoscopically. This appeared to be a small but useable- caliber conduit. Simultaneously, a median sternotomy was performed and the left internal mammary artery dissected free off the posterior sternal table. The patient was systemically heparinized and anticoagulation monitored by serial ACT measurements. The internal mammary artery had good pulsatile flow in it and was a good-caliber conduit. The pericardium was then divided in the midline , the cradle created and targets analyzed. At this point, all anastomoses were performed in a beating-heart fashion using the Borderfree stabilizing system. The left internal mammary artery was anastomosed to the mid LAD (1.75 mm) in an end- to-side fashion using 7-0 Prolene. Segment of saphenous vein graft was then anastomosed to a diffusely and heavily calcified D1 (2 mm) in an end-to-side fashion using 7-0 Prolene. The final segment of saphenous vein graft was then anastomosed to the RPLB (1.75 mm) in an end-to-side fashion using 7-0 Prolene. The proximal anastomosis was then constructed to the ascending aorta in a running manner using 6-0 Prolene. All anastomotic sites were inspected and appeared to be hemostatic and patent. Protamine solution was given. Strict hemostasis was assured. The closure was undertaken. 2 chest tubes were placed. The pericardium was reapproximated in the midline. The sternum was approximated using sternal wires. The muscular and fascial layer were then closed in 3 layers. The endoscopic vein harvest site was closed in 2 layers. The patient tolerated the procedure well and was transferred to CVICU in stable condition. Owen Eisenberg MD Medications and IVs Current Medications Sodium Chloride (NS Flush) 2 ml UNSCH PRN IVF FLUSH AFTER USING IV ACCESS; Start 02/28/18 at 02:00; Stop 02/28/18 at 03:41; Status DC Diltiazem HCl (Cardizem Inj) 20 mg ONCE ONCE IV Last administered on 02/28/18at 01:58; Start 02/28/18 at 02:00; Stop 02/28/18 at 02:01; Status DC Diltiazem HCl 125 mg/Sodium Chloride 125 ml @ 5 mls/hr TITRATE PRN IV tachycardia Last administered on 02/28/18at 02:12; Start 02/28/18 at 02:00; Stop at 07:51; Status DC Sodium Chloride (NS Flush) 2 ml UNSCH PRN IV FLUSH FLUSH AFTER USING IV ACCESS ; Start 02/28/18 at 02:00; Stop 02/28/18 at 03:41; Status DC Diltiazem HCl (Cardizem Inj) 30 mg BOLUS ONCE IV PUSH ; Start 02/28/18 at 02:30 ; Stop 02/28/18 at 02:31; Status DC Furosemide (Lasix Inj) 40 mg ONCE ONCE IV PUSH Last administered on 02/28/18at 02:57; Start 02/28/18 at 03:00; Stop 02/28/18 at 03:01; Status DC Sodium Chloride (NS Flush) 2 ml UNSCH PRN IV FLUSH FLUSH AFTER USING IV ACCESS ; Start 02/28/18 at 03:30; Stop 03/01/18 at 08:35; Status DC Sodium Chloride (NS Flush) 2 ml BID IV FLUSH Last administered on 02/28/18at 09: 20; Start 02/28/18 at 09:00; Stop 03/01/18 at 08:35; Status DC Acetaminophen (Tylenol) 650 mg Q4H PRN PO TEMP > 100.4 Last administered on 02/28at 22:43; Start 02/28/18 at 03:30; Stop 03/02/18 at 11:18; Status DC Ondansetron HCl (Zofran Inj) 4 mg Q6H PRN IVP NAUSEA OR VOMITING; Start at 03:30; Stop 03/03/18 at 11:07; Status DC Heparin Sodium (Porcine) (Heparin Inj) 5,000 units Q8H SQ Last administered on 02/28/18at 11:15; Start 02/28/18 at 04:00; Stop 02/28/18 at 12:03; Status DC Naloxone HCl (Narcan Inj) 0.4 mg UNSCH PRN IV PUSH SEE LABEL COMMENTS; Start at 03:30 Senna/Docusate Sodium (Annette-Colace) 1 tab BID PO Last administered on 03/03/18at 09:00; Start 02/28/18 at 09:00; Stop 03/03/18 at 11:07; Status DC Magnesium Hydroxide (Milk Of Magnesia Liq) 30 ml Q12H PRN PO Mild constipation ; Start 02/28/18 at 03:30 Sennosides (Senokot) 17.2 mg Q12H PRN PO Moderate constipation; Start 02/28/18 at 03:30 Bisacodyl (Dulcolax Supp) 10 mg DAILY PRN RECTAL SEVERE CONSITIPATION/ IF NPO; Start 02/28/18 at 03:30; Stop 03/02/18 at 11:18; Status DC Lactulose (Lactulose Liq) 30 ml DAILY PRN PO SEVERE CONSITIPATION/ IF PO; Start 02/28/18 at 03:30 Albuterol/ Ipratropium (Duoneb Neb) 1 ampule Q4HR NEB PRN NEB SOB/Wheezing; Start 02/28/18 at 03:30; Stop 03/01/18 at 13:23; Status DC Pneumococcal Polyvalent Vaccine (Pneumovax-23 Inj) 25 mcg ONCE ONCE IM Last administered on 03/01/18at 08:50; Start 03/01/18 at 09:00; Stop 03/01/18 at 09:01; Status DC Influenza Virus Vaccine (Flu (Quadrivalent) Vaccine Inj) 0.5 ml ONCE ONCE IM Last administered on 03/01/18at 08:51; Start 03/01/18 at 09:00; Stop 03/01/18 at 09: 01; Status DC Diltiazem HCl (Cardizem Cd) 240 mg DAILY PO Last administered on 03/01/18at 08:39 ; Start 02/28/18 at 09:00 Pharmacy Profile Note 0 ml @ 0 mls/hr UNSCH OTHER ; Start 02/28/18 at 08:00; Stop 03/02/18 at 13:36; Status DC Warfarin Sodium (Coumadin) 5 mg DAILY@1600 PO ; Start 02/28/18 at 16:00; Stop 03/02/18 at 11:18; Status DC Patient Medication Teaching (Coumadin Booklet) 1 ONCE ONCE .XX ; Start 02/28/18 at 16:00; Stop 02/28/18 at 16:01; Status DC Ceftriaxone Sodium 1000 mg/ Sodium Chloride 100 ml @ 200 mls/hr Q24H IV Last administered on 03/03/18at 10:00; Start 02/28/18 at 10:00 Azithromycin (Zithromax) 500 mg DAILY PO Last administered on 03/03/18at 09:00; Start 02/28/18 at 10:00 Heparin Sodium (Porcine) (Heparin Inj) 7,000 units ONCE ONCE IV PUSH Last administered on 02/28/18at 12:42; Start 02/28/18 at 12:00; Stop 02/28/18 at 12:02; Status DC Heparin Sodium (Porcine) (Heparin Inj) 5,000 units UNSCH PRN IV PUSH APTT LESS THAN 25; Start 02/28/18 at 17:45; Stop 03/02/18 at 11:18; Status DC Heparin Sodium (Porcine) (Heparin Inj) 2,500 units UNSCH PRN IV PUSH APTT 25 TO 39 Last administered on 03/01/18at 19:24; Start 02/28/18 at 17:45; Stop 03/02/18 at 11:18; Status DC Heparin Sodium/ Dextrose 250 ml @ 10 mls/hr TITRATE PRN IV Coagulation Management Last administered on 03/01/18at 11:12; Start 02/28/18 at 11:45; Stop 03/02/18 at 11:18; Status DC Dextrose (D50w (Vial) Inj) 50 ml UNSCH PRN IV PUSH HYPOGLYCEMIA-SEE COMMENTS; Start 02/28/18 at 11:45; Stop 03/02/18 at 11:18; Status DC Glucagon (Glucagon Inj) 1 mg UNSCH PRN OTHER HYPOGLYCEMIA-SEE COMMENTS; Start 02/28/18 at 11:45; Stop 03/02/18 at 11:18; Status DC Insulin Aspart (NovoLOG SUPPLEMENTAL SCALE) 1 ACHS SLIDING SCALE SQ Last administered on 03/01/18at 08:00; Start 02/28/18 at 12:00; Stop 03/02/18 at 11:18; Status DC Atorvastatin Calcium (Lipitor) 20 mg HS PO Last administered on 03/02/18at 20:44 ; Start 02/28/18 at 21:00 Lisinopril (Prinivil) 20 mg DAILY PO Last administered on 03/01/18at 08:40; Start 03/01/18 at 09:00; Stop 03/02/18 at 11:18; Status DC Sodium Chloride 1,000 ml @ 100 mls/hr Q10H IV ; Start 02/28/18 at 15:00; Stop at 08:35; Status DC Diphenhydramine HCl (Benadryl) 50 mg WARRANT SERVER PO ; Start 02/28/18 at 15:00; Stop 03/04/18 at 14:59 Diazepam (Valium) 5 mg WARRANT SERVER PO ; Start 02/28/18 at 15:00; Stop 03/02/18 at 11: 18; Status DC Nitroglycerin (Nitroglycerin 2% Oint) 0.5 inch Q6HR TOPICAL Last administered on 03/02/18at 05:22; Start 02/28/18 at 18:00; Stop 03/02/18 at 11:18; Status DC Labetalol HCl (Trandate Inj) 10 mg Q6H PRN IV PUSH SEE LABEL COMMENTS; Start at 19:45; Stop 03/02/18 at 11:18; Status DC Heparin Sodium/ Sodium Chloride 2,000 ml @ As Directed STK-MED ONCE IV FLUSH Last administered on 03/01/18at 07:13; Start 03/01/18 at 07:13; Stop 03/01/18 at 07: 14; Status DC Midazolam HCl (Versed Inj) 2 mg STK-MED ONCE .ROUTE Last administered on at 07:59; Start 03/01/18 at 07:21; Stop 03/01/18 at 07:22; Status DC Verapamil HCl (Isoptin Inj) 5 mg STK-MED ONCE .ROUTE Last administered on at 07:29; Start 03/01/18 at 07:29; Stop 03/01/18 at 07:30; Status DC Heparin Sodium (Porcine) (Heparin Inj) 10,000 units STK-MED ONCE .ROUTE Last administered on 03/01/18at 07:29; Start 03/01/18 at 07:29; Stop 03/01/18 at 07:30; Status DC Nitroglycerin 5 ml @ As Directed STK-MED ONCE .ROUTE Last administered on at 07:29; Start 03/01/18 at 07:29; Stop 03/01/18 at 07:30; Status DC Lidocaine HCl (Xylocaine-Mpf 1% Inj) 30 ml STK-MED ONCE .ROUTE Last administered on 03/01/18at 07:32; Start 03/01/18 at 07:32; Stop 03/01/18 at 07:33; Status DC Miscellaneous Information 1 ONCE ONCE XX ; Start 03/01/18 at 08:30; Stop at 08:33; Status DC Sodium Chloride (NS Flush) 2 ml BID IV FLUSH Last administered on 03/01/18at 08: 40; Start 03/01/18 at 09:00; Stop 03/01/18 at 12:49; Status DC Sodium Chloride (NS Flush) 2 ml UNSCH PRN IV FLUSH FLUSH AFTER USING IV ACCESS ; Start 03/01/18 at 08:30; Stop 03/01/18 at 12:49; Status DC Sodium Chloride 1,000 ml @ 100 mls/hr Q10H IV ; Start 03/01/18 at 08:27; Stop at 16:26; Status DC Bacitracin (Bacitracin Oint Packet) 0.9 gm ONCE ONCE TOP ; Start 03/01/18 at 08: 30; Stop 03/01/18 at 08:33; Status DC Sodium Chloride (NS Flush) 2 ml BID IV FLUSH Last administered on 03/01/18at 20: 14; Start 03/01/18 at 21:00; Stop 03/02/18 at 11:18; Status DC Sodium Chloride (NS Flush) 2 ml UNSCH PRN IV FLUSH FLUSH AFTER USING IV ACCESS ; Start 03/01/18 at 11:00; Stop 03/02/18 at 11:18; Status DC Papaverine HCl 60 mg/Nitroglycerin 100 mcg/Diltiazem HCl 100 mg/Sodium Chloride 100 ml @ 0 mls/hr WARRANT SERVER IRRIGATION ; Start 03/01/18 at 11:00; Stop 03/01/18 at 16:39; Status DC Cefazolin Sodium 500 mg/Sodium Chloride 505 ml @ 0 mls/hr WARRANT SERVER IRRIGATION Last administered on 03/02/18at 08:42; Start 03/01/18 at 11:00; Stop 03/02/18 at 11: 18; Status DC Cefazolin Sodium 2000 mg/Sodium Chloride 100 ml @ 150 mls/hr WARRANT SERVER ONCE IV ; Start 03/01/18 at 10:00; Stop 03/01/18 at 13:17; Status DC Metoprolol Tartrate (Lopressor) 12.5 mg WARRANT SERVER PO Last administered on at 05:22; Start 03/01/18 at 11:00; Stop 03/02/18 at 11:18; Status DC Chlorhexidine Gluconate (Hibiclens 4% Top Soln) 1 applic WARRANT SERVER TOPICAL ; Start 03/01/18 at 11:00; Stop 03/02/18 at 11:18; Status DC Insulin Human Regular 100 units/ Sodium Chloride 100 ml @ 3 mls/hr TITRATE PRN IV for blood glucose control; Start 03/01/18 at 11:00; Stop 03/02/18 at 11:18; Status DC Dextrose (D50w (Vial) Inj) 50 ml UNSCH PRN IV PUSH HYPOGLYCEMIA-SEE COMMENTS; Start 03/01/18 at 11:00; Stop 03/02/18 at 11:18; Status DC Guaifenesin (Mucinex Er) 600 mg BID PO Last administered on 03/03/18at 09:00; Start 03/01/18 at 12:30 Albuterol/ Ipratropium (Duoneb Neb) 1 ampule Q6HR NEB NEB Last administered on 03/01/18at 19:38; Start 03/01/18 at 16:00; Stop 03/02/18 at 11:18; Status DC Albuterol/ Ipratropium (Duoneb Neb) 1 ampule Q2HR NEB PRN NEB SHORTNESS OF BREATH; Start 03/01/18 at 12:30; Stop 03/02/18 at 11:18; Status DC Insulin Detemir (Levemir Inj) 5 units Q12HR SQ Last administered on 03/01/18at 20 :14; Start 03/01/18 at 21:00; Stop 03/02/18 at 12:19; Status DC Iohexol (OMNIPAQUE 350 INJ (Community Manager)) 100 ml STK-MED ONCE OTHER ; Start at 13:29; Stop 03/01/18 at 13:30; Status DC Iohexol (OMNIPAQUE 350 INJ (Community Manager)) 50 ml STK-MED ONCE OTHER ; Start 03/01/18 at 13:29; Stop 03/01/18 at 13:30; Status DC Papaverine HCl 60 mg/Nitroglycerin 100 mcg/Verapamil HCl 100 mg/Sodium Chloride 100 ml @ 0 mls/hr WARRANT SERVER IRRIGATION Last administered on 03/02/18at 08:45; Start 03/01/18 at 16:45; Stop 03/02/18 at 11:18; Status DC Lactated Ringer's 1,000 ml @ 30 mls/hr Q24H PRN IV SEE LABEL COMMENTS; Start at 04:30; Stop 03/02/18 at 11:18; Status DC Sodium Chloride 500 ml @ 30 mls/hr [id number] PRN IV SEE LABEL COMMENTS; Start 03/02/18 at 04:30; Stop 03/02/18 at 11:18; Status DC Povidone Iodine (Betadine 5% Antisepsis Kit) 1 applic WARRANT SERVER PRN EACH NARE SEE LABEL COMMENTS; Start 03/02/18 at 04:30; Stop 03/05/18 at 04:29 Chlorhexidine Gluconate (Chlorhexidine 2% Cloth) 3 pack [employer] SERVER PRN TOPICAL SEE LABEL COMMENTS; Start 03/02/18 at 04:30; Stop 03/02/18 at 11:18; Status DC Heparin Sodium (Porcine) (Heparin Inj) 40,000 units STK-MED ONCE .ROUTE Last administered on 03/02/18at 06:35; Start 03/02/18 at 06:35; Stop 03/02/18 at 06:36; Status DC Cefazolin Sodium (Ancef Inj) 2,000 mg STK-MED ONCE .ROUTE ; Start 03/02/18 at 06: 35; Stop 03/02/18 at 06:36; Status DC Vancomycin HCl (Vancomycin Inj) 3,000 mg STK-MED ONCE .ROUTE Last administered on 03/02/18at 06:35; Start 03/02/18 at 06:35; Stop 03/02/18 at 06:36; Status DC Vancomycin HCl (Vancomycin Inj) 1,000 mg STK-MED ONCE .ROUTE Last administered on 03/02/18at 07:21; Start 03/02/18 at 07:21; Stop 03/02/18 at 07:22; Status DC Vancomycin HCl (Vancomycin Inj) 3,000 mg STK-MED ONCE .ROUTE ; Start 03/02/18 at 10:39; Stop 03/02/18 at 10:40; Status DC Potassium Chloride (KCl Inj) 4 meq STK-MED ONCE .ROUTE ; Start 03/02/18 at 11:13 ; Stop 03/02/18 at 11:14; Status DC Sodium Chloride (NS Flush) 2 ml BID IV FLUSH Last administered on 03/03/18at 09: 00; Start 03/02/18 at 21:00 Sodium Chloride (NS Flush) 2 ml UNSCH PRN IV FLUSH FLUSH AFTER USING IV ACCESS ; Start 03/02/18 at 11:15 Dexmedetomidine HCl 200 mcg/ Sodium Chloride 52 ml @ 4.3 mls/hr TITRATE PRN IV SEDATION; Start 03/02/18 at 12:00; Stop 03/03/18 at 10:04; Status DC Nitroglycerin/ Dextrose 250 ml @ 1.5 mls/hr TITRATE PRN IV Maintain BP < 140/ 90 mmHg; Start 03/02/18 at 11:30; Stop 03/03/18 at 10:04; Status DC Dobutamine HCl/ Dextrose 250 ml @ 12.42 mls/ hr Q20H8M PRN IV Rate change per MD; Start 03/02/18 at 12:00; Stop 03/03/18 at 10:04; Status DC Dopamine HCl/ Dextrose 500 ml @ 9.315 mls/ hr TITRATE PRN IV Maintain MAP > 65 mmHg; Start 03/02/18 at 12:00; Stop 03/03/18 at 10:04; Status DC Phenylephrine HCl 40 mg/Dextrose 500 ml @ 30 mls/hr TITRATE PRN IV Maintain MAP > 65 mmHg; Start 03/02/18 at 11:30; Stop 03/03/18 at 10:04; Status DC Clevidipine 50 ml @ 2 mls/hr TITRATE PRN IV Maintain BP < 140/90 mmHg; Start at 11:45; Stop 03/03/18 at 10:04; Status DC Albumin Human 250 ml @ 250 mls/hr UNSCH PRN IV SEE LABEL COMMENTS; Start at 11:45; Stop 03/03/18 at 10:04; Status DC Lactated Ringer's 500 ml @ 500 mls/hr Q1H PRN IV SEE LABEL COMMENTS; Start 03/02 at 11:45; Stop 03/03/18 at 10:04; Status DC Miscellaneous Information (Post-op Orders (for Pharmacy)) STAT ONCE OTHER ; Start 03/02/18 at 12:00; Stop 03/02/18 at 12:03; Status DC Vancomycin HCl 1250 mg/Sodium Chloride 250 ml @ 166.667 mls/hr Q12H IV Last administered on 03/03/18at 08:00; Start 03/02/18 at 20:00; Stop 03/03/18 at 21:29 Aspirin (Aspirin Chew) 81 mg DAILY PO Last administered on 03/03/18at 09:00; Start 03/03/18 at 09:00 Clopidogrel Bisulfate (Plavix) 75 mg DAILY PO Last administered on 03/03/18at 09: 00; Start 03/03/18 at 09:00 Pantoprazole Sodium (Protonix) 40 mg DAILY@06 PO Last administered on 03/03/18at 05:32; Start 03/03/18 at 06:00 Amiodarone HCl (Cordarone) 200 mg Q12HR PO Last administered on 03/03/18at 09:00 ; Start 03/02/18 at 21:00 Acetaminophen (Tylenol) 650 mg Q4H PRN PO TEMPERATURE > 101 F; Start 03/02/18 at 11:45 Acetaminophen (Tylenol Supp) 650 mg Q4H PRN RECTAL TEMPERATURE > 101 F; Start 03/02/18 at 11:45 Acetaminophen 100 ml @ 400 mls/hr Q6H IV Last administered on 03/03/18at 05:32; Start 03/02/18 at 12:00; Stop 03/03/18 at 06:14; Status DC Morphine Sulfate (Morphine Inj) 1 mg Q10M PRN IV PUSH PAIN SCALE 1 TO 5; Start 03/02/18 at 11:45 Meperidine HCl (Demerol Inj) 12.5 mg Q4H PRN IV PUSH SEE LABEL COMMENTS; Start 03/02/18 at 12:00 Acetaminophen/ Hydrocodone Bitart ([place] 5-325 Mg) 1 tab Q3H PRN PO PAIN SCALE 1 TO 5 Last administered on 03/03/18at 10:50; Start 03/02/18 at 11:45 Ketorolac Tromethamine (Toradol Inj) 15 mg Q6H PRN IV PUSH SEE LABEL COMMENTS Last administered on 03/02/18at 21:43; Start 03/02/18 at 12:00; Stop 03/04/18 at 11: 59 Fentanyl Citrate (fentaNYL INJ) 25 mcg Q1H PRN IV PUSH BREAKTHROUGH PAIN Last administered on 03/02/18at 17:47; Start 03/02/18 at 11:45 Ondansetron HCl (Zofran Inj) 4 mg Q6H PRN IV PUSH NAUSEA OR VOMITING; Start 03/02/18 at 11:15 Hydralazine HCl (Apresoline Inj) 10 mg Q4H PRN IV PUSH SEE LABEL COMMENTS; Start 03/02/18 at 12:00 Metoprolol Tartrate (Lopressor Inj) 2.5 mg Q1H PRN IV PUSH SEE LABEL COMMENTS; Start 03/02/18 at 12:00 Potassium Chloride 100 ml @ 50 mls/hr UNSCH PRN IV SEE LABEL COMMENTS Last administered on 03/02/18at 12:39; Start 03/02/18 at 12:00; Stop 03/02/18 at 12:39; Status DC Potassium Chloride 100 ml @ 50 mls/hr UNSCH PRN IV SEE LABEL COMMENTS Last administered on 03/02/18at 20:43; Start 03/02/18 at 12:00; Stop 03/02/18 at 20:44; Status DC Potassium Chloride 100 ml @ 50 mls/hr UNSCH PRN IV SEE LABEL COMMENTS; Start 03/02/18 at 12:00 Potassium Chloride (KCl) 20 meq UNSCH PRN PO SEE LABEL COMMENTS Last administered on 03/03/18at 06:20; Start 03/02/18 at 12:00; Stop 03/03/18 at 06:21; Status DC Potassium Chloride (KCl) 40 meq UNSCH PRN PO SEE LABEL COMMENTS; Start 03/02/18 at 12:00 Magnesium Sulfate 2 gm/Sodium Chloride 104 ml @ 100 mls/hr UNSCH PRN IV SEE LABEL COMMENTS; Start 03/02/18 at 12:00 Magnesium Sulfate 2 gm/Sodium Chloride 104 ml @ 50 mls/hr UNSCH PRN IV SEE LABEL COMMENTS; Start 03/02/18 at 12:00 Calcium Chloride 1 gm/Sodium Chloride 110 ml @ 100 mls/hr UNSCH PRN IV SEE LABEL COMMENTS Last administered on 03/02/18at 12:13; Start 03/02/18 at 12:00 Calcium Chloride (Calcium Chloride Inj) 0.5 gm UNSCH PRN IV PUSH SEE LABEL COMMENTS; Start 03/02/18 at 12:00 Insulin Human Regular 100 units/ Sodium Chloride 100 ml @ 3 mls/hr TITRATE PRN IV for blood glucose control; Start 03/02/18 at 12:00; Stop 03/03/18 at 10:04; Status DC Dextrose (D50w (Vial) Inj) 50 ml UNSCH PRN IV PUSH HYPOGLYCEMIA-SEE COMMENTS; Start 03/02/18 at 12:00; Stop 03/03/18 at 11:07; Status DC Sodium Bicarbonate (Sodium Bicarbonate 8.4% Inj) 50 meq UNSCH PRN IV PUSH SEE LABEL COMMENTS; Start 03/02/18 at 12:00 Sodium Bicarbonate (Sodium Bicarbonate 8.4% Inj) 100 meq UNSCH PRN IV PUSH SEE LABEL COMMENTS; Start 03/02/18 at 12:00 Albuterol/ Ipratropium (Duoneb Neb) 1 ampule Q6HR NEB NEB Last administered on 03/03/18at 08:26; Start 03/02/18 at 16:00 Albuterol/ Ipratropium (Duoneb Neb) 1 ampule Q2HR NEB PRN NEB WHEEZING; Start 03/02/18 at 12:00 Racepinephrine (Racepinephrine 2.25% Neb) 0.5 ml UNSCH X1 PRN NEB STRIDOR; Start 03/02/18 at 12:00; Stop 03/05/18 at 11:59 Midazolam HCl (Versed Inj) 10 mg STK-MED ONCE .ROUTE ; Start 03/02/18 at 12:26; Stop 03/02/18 at 12:27; Status DC Fentanyl Citrate (fentaNYL INJ) 750 mcg STK-MED ONCE .ROUTE ; Start 03/02/18 at 12:26; Stop 03/02/18 at 12:27; Status DC Fentanyl Citrate (fentaNYL INJ) 250 mcg STK-MED ONCE .ROUTE ; Start 03/02/18 at 12:27; Stop 03/02/18 at 12:28; Status DC Glucagon (Glucagon Inj) 1 mg UNSCH PRN OTHER HYPOGLYCEMIA-SEE COMMENTS; Start 03/02/18 at 13:45; Stop 03/03/18 at 11:07; Status DC Albuterol/ Ipratropium (Duoneb Neb) 1 ampule Q6HR WHILE AWAKE NEB NEB Last administered on 03/03/18at 14:11; Start 03/03/18 at 14:00; Stop 03/05/18 at 13:59 Docusate Sodium (Colace) 100 mg BID PO ; Start 03/03/18 at 21:00 Multivitamins/ Minerals Therapeutic (Theragran M Tab) 1 tab DAILY PO ; Start 03/04/18 at 09:00 Magnesium Hydroxide (Milk Of Magnesia Liq) 30 ml DAILY PO ; Start 03/04/18 at 09: 00 Bisacodyl (Dulcolax Supp) 10 mg UNSCH PRN RECTAL SEE LABEL COMMENTS; Start 03/03 at 10:00 Polyethylene Glycol (Miralax) 17 gm DAILY PO ; Start 03/04/18 at 09:00 Sennosides (Senokot) 8.6 mg HS PO ; Start 4/7/18 at 21:00 Sodium Biphosphate/ Sodium Phosphate (Fleets Enema (Adult)) 118 ml UNSCH PRN RECTAL SEE LABEL COMMENTS; Start 03/03/18 at 10:00 Metoprolol Tartrate (Lopressor) 25 mg BID PO ; Start 03/03/18 at 11:00 Insulin Aspart (NovoLOG SUPPLEMENTAL SCALE) 1 02,06,10,14,18,22 SQ Last administered on 03/03/18at 10:00; Start 03/03/18 at 11:00 Dextrose (D50w (Vial) Inj) 50 ml UNSCH PRN IV PUSH HYPOGLYCEMIA-SEE COMMENTS; Start 03/03/18 at 10:00 Glucagon (Glucagon Inj) 1 mg UNSCH PRN OTHER HYPOGLYCEMIA-SEE COMMENTS; Start 03/03/18 at 10:00 Metoprolol Tartrate (Lopressor) 25 mg BID PO Last administered on 03/03/18at 10: 51; Start 03/03/18 at 11:00; Stop 03/03/18 at 11:05; Status DC A/P Problem List: (1) Atrial fibrillation with RVR ICD Code: I48.91 - Unspecified atrial fibrillation Status: Acute (2) CHF (congestive heart failure) ICD Code: I50.9 - Heart failure, unspecified Status: Acute (3) Diabetes ICD Code: E11.9 - Type 2 diabetes mellitus without complications Status: Acute (4) COPD (chronic obstructive pulmonary disease) ICD Code: J44.9 - Chronic obstructive pulmonary disease, unspecified Status: Acute Assessment and Plan This is a pleasant 57-year-old male patient with a known medical history of hypertension, diabetes, dyslipidemia, tobaccoism and history of meningitis with subsequent right eye blindness who presented to the ED via private transportation with sudden dyspnea and chest pain upon awakening this morning. Atrial fibrillation with rapid ventricular response with associated dyspnea and chest pain - EKG upon presentation showing A. fib RVR. Was given Cardizem IV push 2. Was placed on a Cardizem drip. At the time of assessment patient is in normal sinus rhythm, no complaints of dyspnea or chest pain and now on p.o. Cardizem. -Cardiology was consulted, appreciate input and recommendations. Initial troponin 0.03. Second troponin drawn, now 2.8. STAT transfer to [facility] to undergo cardiac catheterization with Dr. Serna. Positive troponins - Will be placed on heparin drip per protocol with ND bolus. Cardiology initially placed patient on Coumadin, will hold at this time. - Continue cardiac telemetry, monitor for any further arrhythmias. - Keep n.p.o. for now until after cardiac catheterization. - Further hospitalization and treatment plan will depend on findings be a cardiac catheterization. We will continue to follow clinically. Had cardiac catheterization on March 01 needs coronary artery bypass -- cardiovascular surgery has been counseled Community acquired pneumonia - Chest x-ray reviewed showing diffuse interstitial infiltrates. Started on ceftriaxone and azithromycin. - Monitor for infection. Afebrile since presentation. Mild leukocytosis, white blood cell 12.9. Follow CBC. BMP reviewed essentially unremarkable. - Supplemental O2 as needed, keep sats above 92%. Currently on 2LNC. Continue to monitor. Congestive heart failure, unspecified. - Patient is from [place]. No prior records. Echocardiogram ordered, pending. Follow. Patient is also undergoing cardiac cath today. - BNP 303 on presentation. Was given Lasix x 1 in ED. - Monitor intake and output. Negative fluid balance at this time. Will await cardiology recs for diuretics if needed depending on ECHO. Type 2 diabetes mellitus, chronic: Accu-Chek before meals at bedtime, sliding scale, cover as needed. Monitor BGM trends. Hemoglobin a1c pending. Will add lipid panel. Hypertension, chronic: Continue home JOLANTA inhibitor. Monitor BP trends. COPD not in exacerbation Tobaccoism - Duonebs as needed for wheezing. - Encouraged cessation. Nicotine patch offered. Coronary artery disease needs coronary artery bypass graft cardiovascular surgery has been consult has triple-vessel disease 4-6 SP CABG TODAY Urgent Off-pump Coronary Artery Bypass Grafting x 3 with Left Internal Mammary Artery (CARVALHO) to Left Anterior Descending (LAD), reverse saphenous vein graft to the Diagonal 1 (D1), reverse saphenous vein graft to the Posterolateral Branch of the Right Coronary Artery (RPLB) HYPOKALEMIA- REPLACE BY PROTOCOLS AM LABS INCREASE ACTIVITY INCENTIVE SPIROMETRY DW RN AND PT DVT prophylaxis: Heparin drip. Discharge Planning Pending clearance by cardiology and cardiovascular surgery Problem Qualifiers (1) CHF (congestive heart failure): Qualified Codes: I50.9 - Heart failure, unspecified (2) COPD (chronic obstructive pulmonary disease): Qualified Codes: J44.9 - Chronic obstructive pulmonary disease, unspecified Felix Gutierrez DO Mar 03, 2018 14:27
[2018-03-03] MEDS: ATORVASTATIN 20 MG TAB PO SCH (20:34)
[2018-03-03] MEDS: DOCUSATE SODIUM 100 MG CAP PO SCH (20:34)
[2018-03-03] MEDS: SENNOSIDES 8.6 MG TAB PO SCH (20:34)
[2018-03-03] MEDS: METOPROLOL TARTRATE 25 MG TAB PO SCH ×2 (20:35→20:37)
[2018-03-04] VITALS (27 sets, daily range): BP systolic 107–152; BP diastolic 60–88; PULSE 69–152; RESP 17–20; TEMP 97.9–98.3; O2SAT 93–100
[2018-03-04] MEDS: ACETAMINOPHEN/HYDROcodone 325 MG/5 MG TAB PO PRN ×5 (02:15→16:26)
[2018-03-04] MEDS: INSULIN ASPART SUPPLEMENTAL SCALE SQ SCH ×6 (02:19→22:26)
[2018-03-04] MEDS: RESP: ALBUTEROL 2.5 MG/IPRATROPIUM 0.5 MG NEB (SCH) NEB ×5 (04:00→22:00)
[2018-03-04] MEDS: PANTOPRAZOLE SOD 40 MG DELAYED RELEASE TAB PO SCH (04:50)
[2018-03-04 05:16] LABS: AUTOMATED NEUTROPHIL # 7.6 TH/MM3 (1.8-7.7); BASOPHIL # 0.1 TH/MM3 (0-0.2); BASOPHIL % 0.8 % (0.0-2.0); EOSINOPHIL # 0.3 TH/MM3 (0-0.4); EOSINOPHIL % 2.5 % (0.0-4.0); HEMATOCRIT 33.3 % (39.0-51.0); HEMOGLOBIN 11.8 GM/DL (13.0-17.0); LYMPH % 19.2 % (9.0-44.0); LYMPHOCYTE # 2.1 TH/MM3 (1.0-4.8); MEAN CELL VOLUME 82.3 FL (80.0-100.0); MEAN CORPUSCULAR HEMOGLOBIN 29.2 PG (27.0-34.0); MEAN CORPUSCULAR HGB CONC 35.4 % (32.0-36.0); MEAN PLATELET VOLUME 8.2 FL (7.0-11.0); MONO % 9.7 % (0.0-8.0); MONOCYTE # 1.1 TH/MM3 (0-0.9); NEUT % 67.8 % (16.0-70.0); PLATELET COUNT 230 TH/MM3 (150-450); RED BLOOD COUNT 4.05 MIL/MM3 (4.50-5.90); RED CELL DISTRIBUTION WIDTH 13.6 % (11.6-17.2); WHITE BLOOD COUNT 11.2 TH/MM3 (4.0-11.0)
[2018-03-04 05:37] LABS: ALBUMIN 2.7 GM/DL (3.4-5.0); AST (GOT) 13 U/L (15-37); BICARBONATE 23.1 MEQ/L (21.0-32.0); BLOOD UREA NITROGEN 7 MG/DL (7-18); CALCIUM 8.2 MG/DL (8.5-10.1); CHLORIDE 104 MEQ/L (98-107); CREATININE 0.87 MG/DL (0.60-1.30); GLOMERULAR FILTRATION RATE 90 ML/MIN (>89); GLUCOSE,RANDOM 90 MG/DL (74-106); MAGNESIUM 1.8 MG/DL (1.5-2.5); SODIUM (NA) 136 MEQ/L (136-145)
[2018-03-04 05:38] LABS: ALT (GPT) 11 U/L (12-78); PHOSPHORUS 2.4 MG/DL (2.5-4.9)
[2018-03-04 05:39] LABS: ALKALINE PHOSPHATASE 73 U/L (45-117); TOTAL BILIRUBIN ADULT 0.6 MG/DL (0.2-1.0); TOTAL PROTEIN 6.3 GM/DL (6.4-8.2)
[2018-03-04 05:46] LABS: INTERNATIONAL NORMALIZED RATIO 1.1 RATIO; PROTHROMBIN TIME - PATIENT 11.4 SEC (9.8-11.6)
--- NOTE | 2018-03-04 07:55 | HHI.PR ---
Subjective Remarks in no acute distress. resting comfortably. has mild pain to both shoulders. no chest pain or sob. Objective Vitals Vital Signs Date Time Temp Pulse Resp B/P (MAP) Pulse Ox O2 Delivery O2 Flow Rate FiO2 03/04/18 07:15 98.1 88 20 152/79 (103) 95 03/04/18 07:15 95 Room Air 03/04/18 07:15 85 03/04/18 06:28 88 03/04/18 05:26 84 03/04/18 04:45 85 03/04/18 03:33 87 03/04/18 03:33 97.9 94 19 131/88 (102) 93 03/04/18 03:33 93 Room Air 03/04/18 02:29 98 03/04/18 01:13 94 03/04/18 00:22 94 03/03/18 23:45 94 Room Air 03/03/18 23:45 98.0 91 19 137/70 (92) 94 03/03/18 23:36 103 03/03/18 22:36 86 03/03/18 22:14 93 Room Air 03/03/18 22:14 98.1 100 18 172/80 (110) 93 158/70 (99) 03/03/18 21:00 87 03/03/18 20:20 99 03/03/18 19:36 94 03/03/18 19:17 103 03/03/18 18:00 92 03/03/18 17:00 82 03/03/18 16:00 78 03/03/18 15:40 94 2.00 03/03/18 15:40 100 03/03/18 15:40 98.5 100 20 168/81 (110) 94 03/03/18 15:00 74 03/03/18 14:00 82 03/03/18 13:00 88 03/03/18 12:00 95 2.00 03/03/18 12:00 92 03/03/18 12:00 98.7 92 20 127/78 (94) 95 03/03/18 08:26 95 Nasal Cannula 3.00 I/O 03/03/18 03/03/18 03/03/18 03/04/18 03/04/18 03/04/18 07:00 15:00 23:00 07:00 15:00 23:00 Intake Total 750 ml 480 ml 960 ml 720 ml Output Total 865 ml 785 ml 3235 ml Balance -115 ml 480 ml 175 ml -2515 ml Intake Oral 300 ml 480 ml 960 ml 720 ml IV Total 450 ml Output Urine Total 595 ml 625 ml 2975 ml Chest Tube Drainage Total 270 ml 160 ml 260 ml # Bowel Movements 0 Result Diagram: 03/04/18 0500 03/04/18 0500 Imaging Last Impressions Chest X-Ray 03/03/18 050 Signed Impressions: Service Date/Time: Saturday, March 03, 2018 05:48 - CONCLUSION: Interval removal of endotracheal tube and nasogastric tube. Lung volumes have decreased with mild patchy bilateral lower lung zone opacity likely representing atelectasis. Derek White MD Lower Extremity Ultrasound 03/01/181409 Signed Impressions: Service Date/Time: February 13:03 - CONCLUSION: 1. Vein mapping as above. Vini Cook MD Chest CT 03/01/181409 Signed Impressions: Service Date/Time: February 15:07 - CONCLUSION: 1. COPD changes. 2. Cardiomegaly with extensive atherosclerotic plaquing in the coronary arteries. 3. Renal stone on the left. Vini Cook MD Carotid Artery Ultrasound 03/01/181409 Signed Impressions: Service Date/Time: February 12:08 - CONCLUSION: Hemodynamic parameters are borderline abnormal and there is evidence of bilateral plaque formation at the common and internal carotid arteries. The borderline abnormality suggest 50-70%% stenoses. Jake Penaloza MD Objective Remarks GENERAL: This is a well-nourished, well-developed patient, in no apparent distress. CARDIOVASCULAR: Regular rate and regular rhythm without murmurs, gallops, or rubs. RESPIRATORY: Clear to auscultation. Breath sounds equal bilaterally. No wheezes , rales, or rhonchi. chest tube in place. GASTROINTESTINAL: Abdomen soft, non-tender, nondistended. Normal, active bowel sounds MUSCULOSKELETAL: Extremities without clubbing, cyanosis, or edema. NEURO: Alert & Oriented x4 to person, place, time, situation. Moves all ext x4 Procedures 03-01-18 Right radial arterial approach left heart catheterization, left ventriculography, and coronary angiography. DESCRIPTION OF PROCEDURE: The patient was brought to the cardiac catheterization lab in a fasting state. He received 1 mg of IV Versed for additional sedation. The right wrist was prepped and draped in sterile fashion. Using 1% lidocaine for local anesthesia, a 6 1/2-Mauritian sheath was placed in the right radial artery and a standard cocktail administered. Coronary angiography was then completed using a [place] catheter. LV pressure was then measured using an angled pigtail catheter, followed by pullback. The sheath was removed with a Terumo band placed. There were no complications. FINDINGS: 1. Hemodynamics: Left ventricular pressure is 144/14 with an end diastolic pressure of 24, aortic pressure is 142/80 with a mean of 104. There was no gradient during pullback from left ventricle to the aorta. 2. Left ventriculography shows global hypokinesis, estimated ejection fraction of 40%. 3. Coronary angiography: The left main coronary artery has 10% irregularities. It bifurcates into the LAD and circumflex vessel. The LAD has a 70% stenosis before a very large arcading diagonal branch. Just past the diagonal branch is a focal 80% stenosis. The LAD is diffusely diseased and has at least 70% stenosis in its midsection. The diagonal branch is severely diffusely diseased, but has a high grade 90% proximal stenosis. Circumflex artery has a 99% stenosis before a small marginal branch. The right coronary artery is large and dominant with diffuse calcification and has an eccentric 60% mid stenosis, 40% distal stenosis and 70% diffuse PDA disease. CONCLUSIONS: 1. Impaired LV function, estimated ejection fraction of 40%. 2. Three vessel coronary artery disease. RECOMMENDATIONS Cardiothoracic surgery consult for bypass surgery. Date of Surgery: Mar 02, 2018 Preoperative Diagnosis: Postoperative Diagnosis: Procedure: 1. Urgent Off-pump Coronary Artery Bypass Grafting x 3 with Left Internal Mammary Artery (CARVALHO) to Left Anterior Descending (LAD), reverse saphenous vein graft to the Diagonal 1 (D1), reverse saphenous vein graft to the Posterolateral Branch of the Right Coronary Artery (RPLB) 2. Left Leg Endoscopic Vein Marshall 3. Intraoperative Vein Mapping. Surgeon: Owen Eisenberg [employer] Project Manager(s): Memo Gutierrez Operation and Findings: PREPROCEDURE DIAGNOSES 1. Severe Multi Vessel Coronary Artery Disease. 2. Acute Myocardial Infarction (NSTEMI) 3. Moderate Left Ventricular Dysfunction (EF 40%) POSTPROCEDURE DIAGNOSES Same SURGICAL PROCEDURE 1. Urgent Off-pump Coronary Artery Bypass Grafting x 3 with Left Internal Mammary Artery (CARVALHO) to Left Anterior Descending (LAD), reverse saphenous vein graft to the Diagonal 1 (D1), reverse saphenous vein graft to the Posterolateral Branch of the Right Coronary Artery (RPLB) 2. Left Leg Endoscopic Vein Marshall 3. Intraoperative Vein Mapping. SURGEON Owen Eisenberg MD BLOW PIT HELPER Jana Gutierrez PA-C ANESTHESIA General endotracheal PHOTOGRAPH ENLARGER Kaylee Arita, GRICELDA Vance MD PREPARATION ChloraPrep. COUNTS Needle, sponge, and instrument counts were correct. DRAINS Two 32-Mauritian mediastinal tubes. COMPLICATIONS None. INDICATIONS FOR PROCEDURE The patient is a 57-year-old presenting with chest pain and AMI. Patient was noted to have multi-vessel coronary artery disease. The patient is being brought to the operating room for surgical revascularization therapy. PROCEDURE Patient was brought to the operating room and placed supine on the OR table. Following the induction of adequate general endotracheal anesthesia and placement of appropriate monitoring devices, intraoperative vein mapping was performed which revealed marginal but usable-caliber conduit in bilateral thighs. The patient was then prepped and draped in standard sterile fashion. Next, 2500 units of intravenous heparin was given. The left greater saphenous vein was harvested endoscopically. This appeared to be a small but useable- caliber conduit. Simultaneously, a median sternotomy was performed and the left internal mammary artery dissected free off the posterior sternal table. The patient was systemically heparinized and anticoagulation monitored by serial ACT measurements. The internal mammary artery had good pulsatile flow in it and was a good-caliber conduit. The pericardium was then divided in the midline , the cradle created and targets analyzed. At this point, all anastomoses were performed in a beating-heart fashion using the FIRE1 stabilizing system. The left internal mammary artery was anastomosed to the mid LAD (1.75 mm) in an end- to-side fashion using 7-0 Prolene. Segment of saphenous vein graft was then anastomosed to a diffusely and heavily calcified D1 (2 mm) in an end-to-side fashion using 7-0 Prolene. The final segment of saphenous vein graft was then anastomosed to the RPLB (1.75 mm) in an end-to-side fashion using 7-0 Prolene. The proximal anastomosis was then constructed to the ascending aorta in a running manner using 6-0 Prolene. All anastomotic sites were inspected and appeared to be hemostatic and patent. Protamine solution was given. Strict hemostasis was assured. The closure was undertaken. 2 chest tubes were placed. The pericardium was reapproximated in the midline. The sternum was approximated using sternal wires. The muscular and fascial layer were then closed in 3 layers. The endoscopic vein harvest site was closed in 2 layers. The patient tolerated the procedure well and was transferred to CVICU in stable condition. Owen Eisenberg MD Medications and IVs Inpatient Medications Acetaminophen 100 ml @ 400 mls/hr Q6H IV Last administered on 03/03/18at 05:32; Start 03/02/18 at 12:00; Stop 03/03/18 at 06:14; Status DC Acetaminophen (Tylenol Supp) 650 mg Q4H PRN RECTAL TEMPERATURE > 101 F; Start 03/02/18 at 11:45 Acetaminophen (Tylenol) 650 mg Q4H PRN PO TEMPERATURE > 101 F; Start 03/02/18 at 11:45 Acetaminophen/ Hydrocodone Bitart ([place] 5-325 Mg) 1 tab Q3H PRN PO PAIN SCALE 1 TO 5 Last administered on 03/04/18at 06:08; Start 03/02/18 at 11:45 Albumin Human 250 ml @ 250 mls/hr UNSCH PRN IV SEE LABEL COMMENTS; Start at 11:45; Stop 03/03/18 at 10:04; Status DC Albuterol/ Ipratropium (Duoneb Neb) 1 ampule Q6HR WHILE AWAKE NEB NEB Last administered on 03/03/18at 19:34; Start 03/03/18 at 14:00; Stop 03/05/18 at 13:59 Amiodarone HCl (Cordarone) 200 mg Q12HR PO Last administered on 03/03/18at 20:34 ; Start 03/02/18 at 21:00 Aspirin (Aspirin Chew) 81 mg DAILY PO Last administered on 03/03/18at 09:00; Start 03/03/18 at 09:00 Atorvastatin Calcium (Lipitor) 20 mg HS PO Last administered on 03/03/18at 20:34 ; Start 02/28/18 at 21:00 Azithromycin (Zithromax) 500 mg DAILY PO Last administered on 03/03/18at 09:00; Start 02/28/18 at 10:00 Bacitracin (Bacitracin Oint Packet) 0.9 gm ONCE ONCE TOP ; Start 03/01/18 at 08: 30; Stop 03/01/18 at 08:33; Status DC Bisacodyl (Dulcolax Supp) 10 mg UNSCH PRN RECTAL SEE LABEL COMMENTS; Start 03/03 at 10:00 Calcium Chloride (Calcium Chloride Inj) 0.5 gm UNSCH PRN IV PUSH SEE LABEL COMMENTS; Start 03/02/18 at 12:00 Calcium Chloride 1 gm/Sodium Chloride 110 ml @ 100 mls/hr UNSCH PRN IV SEE LABEL COMMENTS Last administered on 03/02/18at 12:13; Start 03/02/18 at 12:00 Cefazolin Sodium 500 mg/Sodium Chloride 505 ml @ 0 mls/hr [employer]ERCIAL SUPERINTENDENT IRRIGATION Last administered on 03/02/18at 08:42; Start 03/01/18 at 11:00; Stop 03/02/18 at 11: 18; Status DC Cefazolin Sodium 2000 mg/Sodium Chloride 100 ml @ 150 mls/hr [employer] COMMERCIAL SUPERINTENDENT ONCE IV ; Start 03/01/18 at 10:00; Stop 03/01/18 at 13:17; Status DC Ceftriaxone Sodium 1000 mg/ Sodium Chloride 100 ml @ 200 mls/hr Q24H IV Last administered on 03/03/18at 10:00; Start 02/28/18 at 10:00 Chlorhexidine Gluconate (Chlorhexidine 2% Cloth) 3 pack DISTRICT [employer]ERCIAL SUPERINTENDENT PRN TOPICAL SEE LABEL COMMENTS; Start 03/02/18 at 04:30; Stop 03/02/18 at 11:18; Status DC Chlorhexidine Gluconate (Hibiclens 4% Top Soln) 1 applic DISTRICT COMMERCIAL SUPERINTENDENT TOPICAL ; Start 03/01/18 at 11:00; Stop 03/02/18 at 11:18; Status DC Clevidipine 50 ml @ 2 mls/hr TITRATE PRN IV Maintain BP < 140/90 mmHg; Start at 11:45; Stop 03/03/18 at 10:04; Status DC Clopidogrel Bisulfate (Plavix) 75 mg DAILY PO Last administered on 03/03/18at 09: 00; Start 03/03/18 at 09:00 Dexmedetomidine HCl 200 mcg/ Sodium Chloride 52 ml @ 4.3 mls/hr TITRATE PRN IV SEDATION; Start 03/02/18 at 12:00; Stop 03/03/18 at 10:04; Status DC Dextrose (D50w (Vial) Inj) 50 ml UNSCH PRN IV PUSH HYPOGLYCEMIA-SEE COMMENTS; Start 03/03/18 at 10:00 Diazepam (Valium) 5 mg DISTRICT [employer]CIAL SUPERINTENDENT PO ; Start 02/28/18 at 15:00; Stop 03/02/18 at 11: 18; Status DC Diltiazem HCl (Cardizem Cd) 240 mg DAILY PO Last administered on 03/01/18at 08:39 ; Start 02/28/18 at 09:00 Diltiazem HCl (Cardizem Inj) 30 mg BOLUS ONCE IV PUSH ; Start 02/28/18 at 02:30 ; Stop 02/28/18 at 02:31; Status DC Diltiazem HCl 125 mg/Sodium Chloride 125 ml @ 5 mls/hr TITRATE PRN IV tachycardia Last administered on 02/28/18at 02:12; Start 02/28/18 at 02:00; Stop at 07:51; Status DC Diphenhydramine HCl (Benadryl) 50 mg DISTRICT [employer]ERCIAL SUPERINTENDENT PO ; Start 02/28/18 at 15:00; Stop 03/04/18 at 14:59 Dobutamine HCl/ Dextrose 250 ml @ 12.42 mls/ hr Q20H8M PRN IV Rate change per MD; Start 03/02/18 at 12:00; Stop 03/03/18 at 10:04; Status DC Docusate Sodium (Colace) 100 mg BID PO Last administered on 03/03/18at 20:34; Start 03/03/18 at 21:00 Dopamine HCl/ Dextrose 500 ml @ 9.315 mls/ hr TITRATE PRN IV Maintain MAP > 65 mmHg; Start 03/02/18 at 12:00; Stop 03/03/18 at 10:04; Status DC Fentanyl Citrate (fentaNYL INJ) 25 mcg Q1H PRN IV PUSH BREAKTHROUGH PAIN Last administered on 03/02/18 17:47; Start 03/02/18 at 11:45 Furosemide (Lasix Inj) 40 mg ONCE ONCE IV PUSH Last administered on 02/28/18 02:57; Start 02/28/18 at 03:00; Stop 02/28/18 at 03:01; Status DC Glucagon (Glucagon Inj) 1 mg UNSCH PRN OTHER HYPOGLYCEMIA-SEE COMMENTS; Start 03/03/18 at 10:00 Guaifenesin (Mucinex Er) 600 mg BID PO Last administered on 03/03/18at 20:34; Start 03/01/18 at 12:30 Heparin Sodium (Porcine) (Heparin Inj) 2,500 units UNSCH PRN IV PUSH APTT 25 TO 39 Last administered on 03/01/18 19:24; Start 02/28/18 at 17:45; Stop 03/02/18 at 11:18; Status DC Heparin Sodium/ Dextrose 250 ml @ 10 mls/hr TITRATE PRN IV Coagulation Management Last administered on 03/01/18at 11:12; Start 02/28/18 at 11:45; Stop 03/02/18 at 11:18; Status DC Hydralazine HCl (Apresoline Inj) 10 mg Q4H PRN IV PUSH SEE LABEL COMMENTS; Start 03/02/18 at 12:00 Influenza Virus Vaccine (Flu (Quadrivalent) Vaccine Inj) 0.5 ml ONCE ONCE IM Last administered on 03/01/18 08:51; Start 03/01/18 at 09:00; Stop 03/01/18 at 09: 01; Status DC Insulin Aspart (NovoLOG SUPPLEMENTAL SCALE) 1 02,06,10,14,18,22 SQ Last administered on 03/04/18 02:19; Start 03/03/18 at 11:00 Insulin Detemir (Levemir Inj) 5 units Q12HR SQ Last administered on 03/01/18at 20 :14; Start 03/01/18 at 21:00; Stop 03/02/18 at 12:19; Status DC Insulin Human Regular 100 units/ Sodium Chloride 100 ml @ 3 mls/hr TITRATE PRN IV for blood glucose control; Start 03/02/18 at 12:00; Stop 03/03/18 at 10:04; Status DC Ketorolac Tromethamine (Toradol Inj) 15 mg Q6H PRN IV PUSH SEE LABEL COMMENTS Last administered on 03/02/18at 21:43; Start 03/02/18 at 12:00; Stop 03/04/18 at 11: 59 Labetalol HCl (Trandate Inj) 10 mg Q6H PRN IV PUSH SEE LABEL COMMENTS; Start at 19:45; Stop 03/02/18 at 11:18; Status DC Lactated Ringer's 500 ml @ 500 mls/hr Q1H PRN IV SEE LABEL COMMENTS; Start 03/02 at 11:45; Stop 03/03/18 at 10:04; Status DC Lactulose (Lactulose Liq) 30 ml DAILY PRN PO SEVERE CONSITIPATION/ IF PO; Start 02/28/18 at 03:30 Lisinopril (Prinivil) 20 mg DAILY PO Last administered on 03/01/18at 08:40; Start 03/01/18 at 09:00; Stop 03/02/18 at 11:18; Status DC Magnesium Hydroxide (Milk Of Magnesia Liq) 30 ml DAILY PO ; Start 03/04/18 at 09: 00 Magnesium Sulfate 2 gm/Sodium Chloride 104 ml @ 50 mls/hr UNSCH PRN IV SEE LABEL COMMENTS; Start 03/02/18 at 12:00 Meperidine HCl (Demerol Inj) 12.5 mg Q4H PRN IV PUSH SEE LABEL COMMENTS; Start 03/02/18 at 12:00 Metoprolol Tartrate (Lopressor Inj) 2.5 mg Q1H PRN IV PUSH SEE LABEL COMMENTS; Start 03/02/18 at 12:00 Metoprolol Tartrate (Lopressor) 25 mg BID PO Last administered on 03/03/18at 10: 51; Start 03/03/18 at 11:00; Stop 03/03/18 at 11:05; Status DC Miscellaneous Information (Post-op Orders (for Pharmacy)) STAT ONCE OTHER ; Start 03/02/18 at 12:00; Stop 03/02/18 at 12:03; Status DC Morphine Sulfate (Morphine Inj) 1 mg Q10M PRN IV PUSH PAIN SCALE 1 TO 5; Start 03/02/18 at 11:45 Multivitamins/ Minerals Therapeutic (Theragran M Tab) 1 tab DAILY PO ; Start 03/04/18 at 09:00 Naloxone HCl (Narcan Inj) 0.4 mg UNSCH PRN IV PUSH SEE LABEL COMMENTS; Start at 03:30 Nitroglycerin (Nitroglycerin 2% Oint) 0.5 inch Q6HR TOPICAL Last administered on 03/02/18at 05:22; Start 02/28/18 at 18:00; Stop 03/02/18 at 11:18; Status DC Nitroglycerin/ Dextrose 250 ml @ 1.5 mls/hr TITRATE PRN IV Maintain BP < 140/ 90 mmHg; Start 03/02/18 at 11:30; Stop 03/03/18 at 10:04; Status DC Ondansetron HCl (Zofran Inj) 4 mg Q6H PRN IV PUSH NAUSEA OR VOMITING; Start 03/02/18 at 11:15 Pantoprazole Sodium (Protonix) 40 mg DAILY@06 PO Last administered on 03/04/18at 04:50; Start 03/03/18 at 06:00 Papaverine HCl 60 mg/Nitroglycerin 100 mcg/Diltiazem HCl 100 mg/Sodium Chloride 100 ml @ 0 mls/hr [employer] SUPERINTENDENT IRRIGATION ; Start 03/01/18 at 11:00; Stop 03/01/18 at 16:39; Status DC Papaverine HCl 60 mg/Nitroglycerin 100 mcg/Verapamil HCl 100 mg/Sodium Chloride 100 ml @ 0 mls/hr [employer] SUPERINTENDENT IRRIGATION Last administered on 03/02/18at 08:45; Start 03/01/18 at 16:45; Stop 03/02/18 at 11:18; Status DC Patient Medication Teaching (Coumadin Booklet) 1 ONCE ONCE .XX ; Start 02/28/18 at 16:00; Stop 02/28/18 at 16:01; Status DC Pharmacy Profile Note 0 ml @ 0 mls/hr UNSCH OTHER ; Start 02/28/18 at 08:00; Stop 03/02/18 at 13:36; Status DC Phenylephrine HCl 40 mg/Dextrose 500 ml @ 30 mls/hr TITRATE PRN IV Maintain MAP > 65 mmHg; Start 03/02/18 at 11:30; Stop 03/03/18 at 10:04; Status DC Pneumococcal Polyvalent Vaccine (Pneumovax-23 Inj) 25 mcg ONCE ONCE IM Last administered on 03/01/18at 08:50; Start 03/01/18 at 09:00; Stop 03/01/18 at 09:01; Status DC Polyethylene Glycol (Miralax) 17 gm DAILY PO ; Start 03/04/18 at 09:00 Potassium Chloride (KCl) 40 meq UNSCH PRN PO SEE LABEL COMMENTS; Start 03/02/18 at 12:00 Povidone Iodine (Betadine 5% Antisepsis Kit) 1 applic DISTRICT [employer] SUPERINTENDENT PRN EACH NARE SEE LABEL COMMENTS; Start 03/02/18 at 04:30; Stop 03/05/18 at 04:29 Racepinephrine (Racepinephrine 2.25% Neb) 0.5 ml UNSCH X1 PRN NEB STRIDOR; Start 03/02/18 at 12:00; Stop 03/05/18 at 11:59 Senna/Docusate Sodium (Annette-Colace) 1 tab BID PO Last administered on 03/03/18at 09:00; Start 02/28/18 at 09:00; Stop 03/03/18 at 11:07; Status DC Sennosides (Senokot) 8.6 mg HS PO Last administered on 03/03/18at 20:34; Start at 21:00 Sodium Biphosphate/ Sodium Phosphate (Fleets Enema (Adult)) 118 ml UNSCH PRN RECTAL SEE LABEL COMMENTS; Start 03/03/18 at 10:00 Sodium Bicarbonate (Sodium Bicarbonate 8.4% Inj) 100 meq UNSCH PRN IV PUSH SEE LABEL COMMENTS; Start 03/02/18 at 12:00 Sodium Chloride (NS Flush) 2 ml UNSCH PRN IV FLUSH FLUSH AFTER USING IV ACCESS ; Start 03/02/18 at 11:15 Vancomycin HCl 1250 mg/Sodium Chloride 250 ml @ 166.667 mls/hr Q12H IV Last administered on 03/03/18at 20:00; Start 03/02/18 at 20:00; Stop 03/03/18 at 21:29; Status DC Warfarin Sodium (Coumadin) 5 mg DAILY@1600 PO ; Start 02/28/18 at 16:00; Stop 03/02/18 at 11:18; Status DC A/P Problem List: (1) Atrial fibrillation with RVR ICD Code: I48.91 - Unspecified atrial fibrillation Status: Acute (2) CHF (congestive heart failure) ICD Code: I50.9 - Heart failure, unspecified Status: Acute (3) Diabetes ICD Code: E11.9 - Type 2 diabetes mellitus without complications Status: Acute (4) COPD (chronic obstructive pulmonary disease) ICD Code: J44.9 - Chronic obstructive pulmonary disease, unspecified Status: Acute Assessment and Plan A/P Atrial fibrillation with rapid ventricular response with associated dyspnea and chest pain -Cardiology was consulted, appreciate input and recommendations. Initial troponin 0.03. Second troponin drawn, now 2.8. -Had cardiac catheterization on March 01 with three vessel disease- -echo with EF 60%. -CT surgery consulted and underwent CABG -continue aspirin,plavix, metoprolol,cardizem and statin. -management per Ct surgery. Community acquired pneumonia - Chest x-ray reviewed showing diffuse interstitial infiltrates. Started on ceftriaxone and azithromycin. - Supplemental O2 as needed, keep sats above 92%. Currently on 2LNC. Continue to monitor. Type 2 diabetes mellitus, chronic: Accu-Chek before meals at bedtime, sliding scale, cover as needed. Monitor BGM trends. Hemoglobin a1c 8.5. Hypertension, chronic: Continue home JOLANTA inhibitor. Monitor BP trends. COPD not in exacerbation Tobaccoism - Duonebs as needed for wheezing. - Encouraged cessation. Nicotine patch offered. Problem Qualifiers (1) CHF (congestive heart failure): Qualified Codes: I50.9 - Heart failure, unspecified (2) COPD (chronic obstructive pulmonary disease): Qualified Codes: J44.9 - Chronic obstructive pulmonary disease, unspecified Gentry Boyce MD Mar 04, 2018 07:55
--- NOTE | 2018-03-04 07:56 | PD.CAR.PN ---
CVT Progress Note Subjective/Hospital Course: 57 yo with DM presenting with chest pain and NSTEMI. Noted to be in atrial fibrillation with RVR. Converted to NSR. Cath with multi-vessel CAD 03/02 SURGICAL PROCEDURE 1. Urgent Off-pump Coronary Artery Bypass Grafting x 3 with Left Internal Mammary Artery (CARVALHO) to Left Anterior Descending (LAD), reverse saphenous vein graft to the Diagonal 1 (D1), reverse saphenous vein graft to the Posterolateral Branch of the Right Coronary Artery (RPLB) 2. Left Leg Endoscopic Vein [place] 3. Left Atrial Appendage Excision 4. Intraoperative Vein Mapping. 03/03 Doing well In NSR Transfer [facility] Ambulate 03/04 Doing well Ambulate in HW Maintain CT for now Objective: Vital Signs Date Time Temp Pulse Resp B/P (MAP) Pulse Ox O2 Delivery O2 Flow Rate FiO2 03/04/18 07:15 98.1 88 20 152/79 (103) 95 03/04/18 07:15 95 Room Air 03/04/18 07:15 85 03/04/18 06:28 88 03/04/18 05:26 84 03/04/18 04:45 85 03/04/18 03:33 87 03/04/18 03:33 97.9 94 19 131/88 (102) 93 03/04/18 03:33 93 Room Air 03/04/18 02:29 98 03/04/18 01:13 94 03/04/18 00:22 94 03/03/18 23:45 94 Room Air 03/03/18 23:45 98.0 91 19 137/70 (92) 94 03/03/18 23:36 103 03/03/18 22:36 86 03/03/18 22:14 93 Room Air 03/03/18 22:14 98.1 100 18 172/80 (110) 93 158/70 (99) 03/03/18 21:00 87 03/03/18 20:20 99 03/03/18 19:36 94 03/03/18 19:17 103 03/03/18 18:00 92 03/03/18 17:00 82 03/03/18 16:00 78 03/03/18 15:40 94 2.00 03/03/18 15:40 100 03/03/18 15:40 98.5 100 20 168/81 (110) 94 03/03/18 15:00 74 03/03/18 14:00 82 03/03/18 13:00 88 03/03/18 12:00 95 2.00 03/03/18 12:00 92 03/03/18 12:00 98.7 92 20 127/78 (94) 95 03/03/18 08:26 95 Nasal Cannula 3.00 Labs: Laboratory Tests Test 03/04/18 05:00 White Blood Count 11.2 TH/MM3 (4.0-11.0) Red Blood Count 4.05 MIL/MM3 (4.50-5.90) Hemoglobin 11.8 GM/DL (13.0-17.0) Hematocrit 33.3 % (39.0-51.0) Mean Corpuscular Volume 82.3 FL (80.0-100.0) Mean Corpuscular Hemoglobin 29.2 PG (27.0-34.0) Mean Corpuscular Hemoglobin Concent 35.4 % (32.0-36.0) Red Cell Distribution Width 13.6 % (11.6-17.2) Platelet Count 230 TH/MM3 (150-450) Mean Platelet Volume 8.2 FL (7.0-11.0) Neutrophils (%) (Auto) 67.8 % (16.0-70.0) Lymphocytes (%) (Auto) 19.2 % (9.0-44.0) Monocytes (%) (Auto) 9.7 % (0.0-8.0) Eosinophils (%) (Auto) 2.5 % (0.0-4.0) Basophils (%) (Auto) 0.8 % (0.0-2.0) Neutrophils # (Auto) 7.6 TH/MM3 (1.8-7.7) Lymphocytes # (Auto) 2.1 TH/MM3 (1.0-4.8) Monocytes # (Auto) 1.1 TH/MM3 (0-0.9) Eosinophils # (Auto) 0.3 TH/MM3 (0-0.4) Basophils # (Auto) 0.1 TH/MM3 (0-0.2) CBC Comment DIFF FINAL Differential Comment Prothrombin Time 11.4 SEC (9.8-11.6) Prothromb Time International Ratio 1.1 RATIO Blood Urea Nitrogen 7 MG/DL (7-18) Creatinine 0.87 MG/DL (0.60-1.30) Random Glucose 90 MG/DL (74-106) Total Protein 6.3 GM/DL (6.4-8.2) Albumin 2.7 GM/DL (3.4-5.0) Calcium Level 8.2 MG/DL (8.5-10.1) Phosphorus Level 2.4 MG/DL (2.5-4.9) Magnesium Level 1.8 MG/DL (1.5-2.5) Alkaline Phosphatase 73 U/L (45-117) Aspartate Amino Transf (AST/SGOT) 13 U/L (15-37) Alanine Aminotransferase (ALT/SGPT) 11 U/L (12-78) Total Bilirubin 0.6 MG/DL (0.2-1.0) Sodium Level 136 MEQ/L (136-145) Potassium Level 3.6 MEQ/L (3.5-5.1) Chloride Level 104 MEQ/L (98-107) Carbon Dioxide Level 23.1 MEQ/L (21.0-32.0) Anion Gap 9 MEQ/L (5-15) Estimat Glomerular Filtration Rate 90 ML/MIN (>89) Result Diagram: 03/04/18 0500 03/04/18 0500 (1) Atrial fibrillation with RVR (2) Coronary artery disease (3) S/P CABG (coronary artery bypass graft) (4) Diabetes (5) COPD (chronic obstructive pulmonary disease) Problem Qualifiers (1) COPD (chronic obstructive pulmonary disease): Qualified Codes: J44.9 - Chronic obstructive pulmonary disease, unspecified Owen Eisenberg MD Mar 04, 2018 07:56
--- NOTE | 2018-03-04 08:20 | EKG ---
Date Performed: 03/03/2018 Time Performed: 03:44:06 PTAGE: 57 years EKG: Sinus rhythm with one couplet of multiform PVCs Minor nonspecific T-wave change Abnormal ECG PREVIOUS TRACING 02/28/18 Since previous tracing, PVCs are new, and the T-waves are more flatten ed anterolaterally. DOCTOR: Ross Chacon Interpretating Date/Time 03/04/2018 08:19:25
[2018-03-04] MEDS: POLYETHYLENE GLYCOL 17 GM PKG PO SCH (08:30)
[2018-03-04] MEDS: MAGNESIUM HYDROXIDE SUSP 30 ML CUP PO SCH (08:30)
[2018-03-04] MEDS: DILTIAZEM-CD 240 MG CAP ER PO SCH (08:31)
[2018-03-04] MEDS: CLOPIDOGREL 75 MG TAB PO SCH (08:31)
[2018-03-04] MEDS: guaiFENesin E.R. 600 MG TAB PO SCH ×2 (08:31→20:21)
[2018-03-04] MEDS: ASPIRIN 81 MG CHEW TAB PO SCH (08:31)
[2018-03-04] MEDS: AZITHROMYCIN 250 MG TAB PO SCH (08:31)
[2018-03-04] MEDS: SODIUM CHLORIDE 0.9% FLUSH 10 ML FLUSH IV FLUSH SCH ×2 (08:31→20:22)
[2018-03-04] MEDS: DOCUSATE SODIUM 100 MG CAP PO SCH ×2 (08:31→20:21)
[2018-03-04] MEDS: MULTIVITAMINS/MINERALS THERAPEUTIC TAB PO SCH (08:31)
[2018-03-04] MEDS: AMIODARONE 200 MG TAB PO SCH ×2 (08:31→20:21)
[2018-03-04] MEDS: METOPROLOL TARTRATE 25 MG TAB PO SCH (08:31)
[2018-03-04] MEDS: cefTRIAXone INJ 1,000 MG in SODIUM CHLORIDE 0.9% INJ 100 ML IV SCH (09:04)
[2018-03-04] MEDS ORDERED: AMIODARONE INJ 450 MG in D5W (EXCEL BAG) INJ 241 ML IV PRN (09:45)
[2018-03-04] MEDS ORDERED: METOPROLOL TARTRATE 25 MG TAB PO ONE (10:00)
[2018-03-04] MEDS ORDERED: AMIODARONE 150 MG/D5W 97 ML BOLUS 10 MINUTES IV ONE ×2 (11:00)
[2018-03-04] MEDS ORDERED: AMIODARONE INJ 450 MG in SODIUM CHLOR 0.9% (EXCEL) INJ 241 ML IV PRN (11:00)
[2018-03-04] MEDS: SENNOSIDES 8.6 MG TAB PO SCH (20:21)
[2018-03-04] MEDS: ATORVASTATIN 20 MG TAB PO SCH (20:21)
[2018-03-04] MEDS: METOPROLOL TARTRATE 50 MG TAB PO SCH (20:21)
[2018-03-05] VITALS (27 sets, daily range): BP systolic 107–150; BP diastolic 60–81; PULSE 70–92; RESP 18–20; TEMP 97.9–99.1; O2SAT 93–100
[2018-03-05] MEDS: ACETAMINOPHEN/HYDROcodone 325 MG/5 MG TAB PO PRN ×4 (03:44→22:09)
[2018-03-05] MEDS: RESP: ALBUTEROL 2.5 MG/IPRATROPIUM 0.5 MG NEB (SCH) NEB ×4 (03:47→21:56)
[2018-03-05 04:10] LABS: INTERNATIONAL NORMALIZED RATIO 1.1 RATIO; PROTHROMBIN TIME - PATIENT 11.2 SEC (9.8-11.6)
[2018-03-05] MEDS: INSULIN ASPART SUPPLEMENTAL SCALE SQ SCH ×6 (04:21→22:18)
[2018-03-05] MEDS: PANTOPRAZOLE SOD 40 MG DELAYED RELEASE TAB PO SCH (05:00)
[2018-03-05] MEDS: MAGNESIUM HYDROXIDE SUSP 30 ML CUP PO SCH (08:13)
[2018-03-05] MEDS: CLOPIDOGREL 75 MG TAB PO SCH (08:13)
[2018-03-05] MEDS: MULTIVITAMINS/MINERALS THERAPEUTIC TAB PO SCH (08:13)
[2018-03-05] MEDS: ASPIRIN 81 MG CHEW TAB PO SCH (08:13)
[2018-03-05] MEDS: AMIODARONE 200 MG TAB PO SCH ×2 (08:13→22:10)
[2018-03-05] MEDS: DOCUSATE SODIUM 100 MG CAP PO SCH ×2 (08:13→22:10)
[2018-03-05] MEDS: AZITHROMYCIN 250 MG TAB PO SCH (08:14)
[2018-03-05] MEDS: DILTIAZEM-CD 240 MG CAP ER PO SCH (08:14)
[2018-03-05] MEDS: guaiFENesin E.R. 600 MG TAB PO SCH (08:14)
[2018-03-05] MEDS: METOPROLOL TARTRATE 50 MG TAB PO SCH ×2 (08:17→22:10)
[2018-03-05] MEDS: POLYETHYLENE GLYCOL 17 GM PKG PO SCH (08:18)
[2018-03-05] MEDS: SODIUM CHLORIDE 0.9% FLUSH 10 ML FLUSH IV FLUSH SCH ×2 (09:00→22:10)
[2018-03-05] MEDS: cefTRIAXone INJ 1,000 MG in SODIUM CHLORIDE 0.9% INJ 100 ML IV SCH (09:49)
[2018-03-05 09:52] LABS: AUTOMATED NEUTROPHIL # 8.9 TH/MM3 (1.8-7.7); BASOPHIL # 0.1 TH/MM3 (0-0.2); BASOPHIL % 0.7 % (0.0-2.0); EOSINOPHIL # 0.4 TH/MM3 (0-0.4); EOSINOPHIL % 3.3 % (0.0-4.0); HEMATOCRIT 34.5 % (39.0-51.0); LYMPH % 17.1 % (9.0-44.0); LYMPHOCYTE # 2.2 TH/MM3 (1.0-4.8); MEAN CELL VOLUME 82.5 FL (80.0-100.0); MEAN CORPUSCULAR HEMOGLOBIN 28.8 PG (27.0-34.0); MEAN CORPUSCULAR HGB CONC 34.9 % (32.0-36.0); MEAN PLATELET VOLUME 8.5 FL (7.0-11.0); MONO % 8.6 % (0.0-8.0); MONOCYTE # 1.1 TH/MM3 (0-0.9); NEUT % 70.3 % (16.0-70.0); PLATELET COUNT 242 TH/MM3 (150-450); RED BLOOD COUNT 4.18 MIL/MM3 (4.50-5.90); RED CELL DISTRIBUTION WIDTH 13.5 % (11.6-17.2); WHITE BLOOD COUNT 12.6 TH/MM3 (4.0-11.0)
--- NOTE | 2018-03-05 10:10 | RSPPFT ---
DATE OF PROCEDURE: 03/01/18 COMMENTS: Spirometry with FVC of 3.1, FEV1 of 2.4, FEV1/FVC ratio at 76% of predicted. IMPRESSION: 1. No evidence of airways obstruction.
--- NOTE | 2018-03-05 11:13 | PD.CAR.PN ---
CVT Progress Note Subjective/Hospital Course: 57 yo with DM presenting with chest pain and NSTEMI. Noted to be in atrial fibrillation with RVR. Converted to NSR. Cath with multi-vessel CAD 03/02 SURGICAL PROCEDURE 1. Urgent Off-pump Coronary Artery Bypass Grafting x 3 with Left Internal Mammary Artery (CARVALHO) to Left Anterior Descending (LAD), reverse saphenous vein graft to the Diagonal 1 (D1), reverse saphenous vein graft to the Posterolateral Branch of the Right Coronary Artery (RPLB) 2. Left Leg Endoscopic Vein [place] 3. Left Atrial Appendage Excision 4. Intraoperative Vein Mapping. 03/03 Doing well In NSR Transfer [facility]PCU Ambulate 03/04 Doing well Ambulate in HW Maintain CT for now 03/05 had short episode of afib yesterday, back in NSR still having larger amount of serous drainage from chest tube will leav in , continue pulm toileting labs pending / lasix x 1 Objective: GENERAL: A&O x 3 SKIN: Warm and dry. prevena dressing to chest , incision right leg , some ecchymosis right thigh HEAD: Normocephalic. EYES: No scleral icterus. No injection or drainage. NECK: Supple, trachea midline. No JVD or lymphadenopathy. CARDIOVASCULAR: Regular rate and rhythm without murmurs, gallops, or rubs. RESPIRATORY: Breath sounds equal bilaterally. No accessory muscle use. chest tube to wall suction, no air leak GASTROINTESTINAL: Abdomen soft, non-tender, nondistended. MUSCULOSKELETAL: No cyanosis, or edema. BACK: Nontender without obvious deformity. No CVA tenderness. Vital Signs Date Time Temp Pulse Resp B/P (MAP) Pulse Ox O2 Delivery O2 Flow Rate FiO2 03/05/18 08:00 92 03/05/18 08:00 95 Room Air 03/05/18 08:00 98.3 92 20 150/73 (98) 95 03/05/18 07:12 100 21 03/05/18 06:06 79 03/05/18 05:30 79 03/05/18 04:25 81 03/05/18 04:25 94 Room Air 03/05/18 03:47 99.1 83 18 145/69 (94) 93 03/05/18 03:19 79 03/05/18 02:23 78 03/05/18 01:22 78 03/05/18 00:05 76 03/04/18 23:59 98 Room Air 03/04/18 23:59 97.9 79 17 117/66 (83) 98 03/04/18 23:59 76 03/04/18 22:43 78 03/04/18 21:00 70 03/04/18 20:56 99 Room Air 03/04/18 20:42 95 21 03/04/18 20:18 98.2 87 18 144/77 (99) 96 03/04/18 20:15 74 03/04/18 19:19 69 03/04/18 18:00 76 03/04/18 17:00 71 03/04/18 16:00 80 03/04/18 15:00 98.2 85 18 107/75 (86) 100 03/04/18 15:00 75 03/04/18 15:00 100 Room Air 03/04/18 14:00 74 03/04/18 13:00 71 03/04/18 12:00 78 Labs: Laboratory Tests Test 03/05/18 04:00 03/05/18 09:36 Prothrombin Time 11.2 SEC (9.8-11.6) Prothromb Time International Ratio 1.1 RATIO White Blood Count 12.6 TH/MM3 (4.0-11.0) Red Blood Count 4.18 MIL/MM3 (4.50-5.90) Hemoglobin 12.0 GM/DL (13.0-17.0) Hematocrit 34.5 % (39.0-51.0) Mean Corpuscular Volume 82.5 FL (80.0-100.0) Mean Corpuscular Hemoglobin 28.8 PG (27.0-34.0) Mean Corpuscular Hemoglobin Concent 34.9 % (32.0-36.0) Red Cell Distribution Width 13.5 % (11.6-17.2) Platelet Count 242 TH/MM3 (150-450) Mean Platelet Volume 8.5 FL (7.0-11.0) Neutrophils (%) (Auto) 70.3 % (16.0-70.0) Lymphocytes (%) (Auto) 17.1 % (9.0-44.0) Monocytes (%) (Auto) 8.6 % (0.0-8.0) Eosinophils (%) (Auto) 3.3 % (0.0-4.0) Basophils (%) (Auto) 0.7 % (0.0-2.0) Neutrophils # (Auto) 8.9 TH/MM3 (1.8-7.7) Lymphocytes # (Auto) 2.2 TH/MM3 (1.0-4.8) Monocytes # (Auto) 1.1 TH/MM3 (0-0.9) Eosinophils # (Auto) 0.4 TH/MM3 (0-0.4) Basophils # (Auto) 0.1 TH/MM3 (0-0.2) CBC Comment DIFF FINAL Differential Comment Result Diagram: 03/05/18 0936 03/04/18 0500 (1) Atrial fibrillation with RVR (2) Coronary artery disease (3) S/P CABG (coronary artery bypass graft) Plan: ASA, statin BB , plavix gentle diuresis OOB ambulate . leave chest tube in (4) Diabetes Plan: insulin sliding scale (5) COPD (chronic obstructive pulmonary disease) Problem Qualifiers (1) COPD (chronic obstructive pulmonary disease): Qualified Codes: J44.9 - Chronic obstructive pulmonary disease, unspecified Ce Soto Mar 05, 2018 11:13
[2018-03-05] MEDS ORDERED: POTASSIUM CHLORIDE 10 MEQ CONTROLLED RELEASE TAB PO ONE (11:15)
[2018-03-05] MEDS ORDERED: FUROSEMIDE 40 MG/4 ML VIAL IV PUSH ONE (11:15)
--- NOTE | 2018-03-05 11:18 | HHI.PR ---
Subjective Remarks in no acute distress. looks comfortable. no new complaints. d/w the RN and no acute issues over night. Objective Vitals Vital Signs Date Time Temp Pulse Resp B/P (MAP) Pulse Ox O2 Delivery O2 Flow Rate FiO2 03/05/18 08:00 92 03/05/18 08:00 95 Room Air 03/05/18 08:00 98.3 92 20 150/73 (98) 95 03/05/18 07:12 100 21 03/05/18 06:06 79 03/05/18 05:30 79 03/05/18 04:25 81 03/05/18 04:25 94 Room Air 03/05/18 03:47 99.1 83 18 145/69 (94) 93 03/05/18 03:19 79 03/05/18 02:23 78 03/05/18 01:22 78 03/05/18 00:05 76 03/04/18 23:59 98 Room Air 03/04/18 23:59 97.9 79 17 117/66 (83) 98 03/04/18 23:59 76 03/04/18 22:43 78 03/04/18 21:00 70 03/04/18 20:56 99 Room Air 03/04/18 20:42 95 21 03/04/18 20:18 98.2 87 18 144/77 (99) 96 03/04/18 20:15 74 03/04/18 19:19 69 03/04/18 18:00 76 03/04/18 17:00 71 03/04/18 16:00 80 03/04/18 15:00 98.2 85 18 107/75 (86) 100 03/04/18 15:00 75 03/04/18 15:00 100 Room Air 03/04/18 14:00 74 03/04/18 13:00 71 03/04/18 12:00 78 I/O 03/04/18 03/04/18 03/04/18 03/05/18 03/05/18 03/05/18 07:00 15:00 23:00 07:00 15:00 23:00 Intake Total 720 ml 960 ml 720 ml Output Total 3235 ml 1930 ml 1805 ml Balance -2515 ml -970 ml -1085 ml Intake Oral 720 ml 960 ml 720 ml Output Urine Total 2975 ml 1800 ml 1375 ml Chest Tube Drainage Total 260 ml 130 ml 430 ml # Bowel Movements 0 Result Diagram: 03/05/18 0936 03/04/18 0500 Imaging Last Impressions Chest X-Ray 03/03/18 050 Signed Impressions: Service Date/Time: Saturday, March 03, 2018 05:48 - CONCLUSION: Interval removal of endotracheal tube and nasogastric tube. Lung volumes have decreased with mild patchy bilateral lower lung zone opacity likely representing atelectasis. Derek White MD Lower Extremity Ultrasound 03/01/181409 Signed Impressions: Service Date/Time: February 13:03 - CONCLUSION: 1. Vein mapping as above. Vini Cook MD Chest CT 03/01/181409 Signed Impressions: Service Date/Time: February 15:07 - CONCLUSION: 1. COPD changes. 2. Cardiomegaly with extensive atherosclerotic plaquing in the coronary arteries. 3. Renal stone on the left. Vini Cook MD Carotid Artery Ultrasound 03/01/181409 Signed Impressions: Service Date/Time: February 12:08 - CONCLUSION: Hemodynamic parameters are borderline abnormal and there is evidence of bilateral plaque formation at the common and internal carotid arteries. The borderline abnormality suggest 50-70%% stenoses. Jake Penaloza MD Objective Remarks GENERAL: This is a well-nourished, well-developed patient, in no apparent distress. CARDIOVASCULAR: Regular rate and regular rhythm without murmurs, gallops, or rubs. RESPIRATORY: Clear to auscultation. Breath sounds equal bilaterally. No wheezes , rales, or rhonchi. chest tube in place. GASTROINTESTINAL: Abdomen soft, non-tender, nondistended. Normal, active bowel sounds MUSCULOSKELETAL: Extremities without clubbing, cyanosis, or edema. NEURO: Alert & Oriented x4 to person, place, time, situation. Moves all ext x4 Procedures 03-01-18 Right radial arterial approach left heart catheterization, left ventriculography, and coronary angiography. DESCRIPTION OF PROCEDURE: The patient was brought to the cardiac catheterization lab in a fasting state. He received 1 mg of IV Versed for additional sedation. The right wrist was prepped and draped in sterile fashion. Using 1% lidocaine for local anesthesia, a 6 1/2-Icelandic sheath was placed in the right radial artery and a standard cocktail administered. Coronary angiography was then completed using a [place] catheter. LV pressure was then measured using an angled pigtail catheter, followed by pullback. The sheath was removed with a Terumo band placed. There were no complications. FINDINGS: 1. Hemodynamics: Left ventricular pressure is 144/14 with an end diastolic pressure of 24, aortic pressure is 142/80 with a mean of 104. There was no gradient during pullback from left ventricle to the aorta. 2. Left ventriculography shows global hypokinesis, estimated ejection fraction of 40%. 3. Coronary angiography: The left main coronary artery has 10% irregularities. It bifurcates into the LAD and circumflex vessel. The LAD has a 70% stenosis before a very large arcading diagonal branch. Just past the diagonal branch is a focal 80% stenosis. The LAD is diffusely diseased and has at least 70% stenosis in its midsection. The diagonal branch is severely diffusely diseased, but has a high grade 90% proximal stenosis. Circumflex artery has a 99% stenosis before a small marginal branch. The right coronary artery is large and dominant with diffuse calcification and has an eccentric 60% mid stenosis, 40% distal stenosis and 70% diffuse PDA disease. CONCLUSIONS: 1. Impaired LV function, estimated ejection fraction of 40%. 2. Three vessel coronary artery disease. RECOMMENDATIONS Cardiothoracic surgery consult for bypass surgery. Date of Surgery: Mar 02, 2018 Preoperative Diagnosis: Postoperative Diagnosis: Procedure: 1. Urgent Off-pump Coronary Artery Bypass Grafting x 3 with Left Internal Mammary Artery (CARVALHO) to Left Anterior Descending (LAD), reverse saphenous vein graft to the Diagonal 1 (D1), reverse saphenous vein graft to the Posterolateral Branch of the Right Coronary Artery (RPLB) 2. Left Leg Endoscopic Vein [place] 3. Intraoperative Vein Mapping. Surgeon: Owen Eisenberg Mica Sizer(s): A Matt Operation and Findings: PREPROCEDURE DIAGNOSES 1. Severe Multi Vessel Coronary Artery Disease. 2. Acute Myocardial Infarction (NSTEMI) 3. Moderate Left Ventricular Dysfunction (EF 40%) POSTPROCEDURE DIAGNOSES Same SURGICAL PROCEDURE 1. Urgent Off-pump Coronary Artery Bypass Grafting x 3 with Left Internal Mammary Artery (CARVALHO) to Left Anterior Descending (LAD), reverse saphenous vein graft to the Diagonal 1 (D1), reverse saphenous vein graft to the Posterolateral Branch of the Right Coronary Artery (RPLB) 2. Left Leg Endoscopic Vein [place] 3. Intraoperative Vein Mapping. SURGEON Owen Eisenberg MD RELEASE AND TECHNICAL RECORDS CLERK Jana Gutierrez PA-C ANESTHESIA General endotracheal MANAGER CASH GRICELDA Dhillon MD PREPARATION ChloraPrep. COUNTS Needle, sponge, and instrument counts were correct. DRAINS Two 32-Icelandic mediastinal tubes. COMPLICATIONS None. INDICATIONS FOR PROCEDURE The patient is a 57-year-old presenting with chest pain and AMI. Patient was noted to have multi-vessel coronary artery disease. The patient is being brought to the operating room for surgical revascularization therapy. PROCEDURE Patient was brought to the operating room and placed supine on the OR table. Following the induction of adequate general endotracheal anesthesia and placement of appropriate monitoring devices, intraoperative vein mapping was performed which revealed marginal but usable-caliber conduit in bilateral thighs. The patient was then prepped and draped in standard sterile fashion. Next, 2500 units of intravenous heparin was given. The left greater saphenous vein was harvested endoscopically. This appeared to be a small but useable- caliber conduit. Simultaneously, a median sternotomy was performed and the left internal mammary artery dissected free off the posterior sternal table. The patient was systemically heparinized and anticoagulation monitored by serial ACT measurements. The internal mammary artery had good pulsatile flow in it and was a good-caliber conduit. The pericardium was then divided in the midline , the cradle created and targets analyzed. At this point, all anastomoses were performed in a beating-heart fashion using the TellApartquet stabilizing system. The left internal mammary artery was anastomosed to the mid LAD (1.75 mm) in an end- to-side fashion using 7-0 Prolene. Segment of saphenous vein graft was then anastomosed to a diffusely and heavily calcified D1 (2 mm) in an end-to-side fashion using 7-0 Prolene. The final segment of saphenous vein graft was then anastomosed to the RPLB (1.75 mm) in an end-to-side fashion using 7-0 Prolene. The proximal anastomosis was then constructed to the ascending aorta in a running manner using 6-0 Prolene. All anastomotic sites were inspected and appeared to be hemostatic and patent. Protamine solution was given. Strict hemostasis was assured. The closure was undertaken. 2 chest tubes were placed. The pericardium was reapproximated in the midline. The sternum was approximated using sternal wires. The muscular and fascial layer were then closed in 3 layers. The endoscopic vein harvest site was closed in 2 layers. The patient tolerated the procedure well and was transferred to CVICU in stable condition. Owen Eisenberg MD Medications and IVs Inpatient Medications Acetaminophen 100 ml @ 400 mls/hr Q6H IV Last administered on 03/03/18at 05:32; Start 03/02/18 at 12:00; Stop 03/03/18 at 06:14; Status DC Acetaminophen (Tylenol Supp) 650 mg Q4H PRN RECTAL TEMPERATURE > 101 F; Start 03/02/18 at 11:45 Acetaminophen (Tylenol) 650 mg Q4H PRN PO TEMPERATURE > 101 F; Start 03/02/18 at 11:45 Acetaminophen/ Hydrocodone Bitart ([place] 5-325 Mg) 1 tab Q3H PRN PO PAIN SCALE 1 TO 5 Last administered on 03/05/18at 09:15; Start 03/02/18 at 11:45 Albumin Human 250 ml @ 250 mls/hr UNSCH PRN IV SEE LABEL COMMENTS; Start at 11:45; Stop 03/03/18 at 10:04; Status DC Albuterol/ Ipratropium (Duoneb Neb) 1 ampule Q6HR WHILE AWAKE NEB NEB Last administered on 03/05/18at 07:11; Start 03/03/18 at 14:00; Stop 03/05/18 at 13:59 Amiodarone HCl (Cordarone) 200 mg Q12HR PO Last administered on 03/05/18at 08:13 ; Start 03/02/18 at 21:00 Amiodarone HCl 150 mg/Dextrose 100 ml @ 600 mls/hr ONCE ONCE IV ; Start at 11:00; Stop 03/05/18 at 11:07; Status DC Amiodarone HCl 450 mg/Dextrose 250 ml @ 33.33 mls/ hr TITRATE PRN IV Per Protocol; Start 03/04/18 at 09:45; Stop 03/04/18 at 09:49; Status DC Amiodarone HCl 450 mg/Sodium Chloride 250 ml @ 33.33 mls/ hr TITRATE PRN IV Per Protocol; Start 03/04/18 at 11:00; Stop 03/05/18 at 11:07; Status DC Aspirin (Aspirin Chew) 81 mg DAILY PO Last administered on 03/05/18at 08:13; Start 03/03/18 at 09:00 Atorvastatin Calcium (Lipitor) 20 mg HS PO Last administered on 03/04/18at 20:21 ; Start 02/28/18 at 21:00 Azithromycin (Zithromax) 500 mg DAILY PO Last administered on 03/05/18at 08:14; Start 02/28/18 at 10:00; Stop 03/05/18 at 11:07; Status DC Bacitracin (Bacitracin Oint Packet) 0.9 gm ONCE ONCE TOP ; Start 03/01/18 at 08: 30; Stop 03/01/18 at 08:33; Status DC Bisacodyl (Dulcolax Supp) 10 mg UNSCH PRN RECTAL SEE LABEL COMMENTS; Start 03/03 at 10:00 Calcium Chloride (Calcium Chloride Inj) 0.5 gm UNSCH PRN IV PUSH SEE LABEL COMMENTS; Start 03/02/18 at 12:00; Stop 03/05/18 at 11:07; Status DC Calcium Chloride 1 gm/Sodium Chloride 110 ml @ 100 mls/hr UNSCH PRN IV SEE LABEL COMMENTS Last administered on 03/02/18at 12:13; Start 03/02/18 at 12:00; Stop 03/05/18 at 11:07; Status DC Cefazolin Sodium 500 mg/Sodium Chloride 505 ml @ 0 mls/hr ELECTROPLATER IRRIGATION Last administered on 03/02/18at 08:42; Start 03/01/18 at 11:00; Stop 03/02/18 at 11: 18; Status DC Cefazolin Sodium 2000 mg/Sodium Chloride 100 ml @ 150 mls/hr ELECTROPLATER ONCE IV ; Start 03/01/18 at 10:00; Stop 03/01/18 at 13:17; Status DC Ceftriaxone Sodium 1000 mg/ Sodium Chloride 100 ml @ 200 mls/hr Q24H IV Last administered on 03/05/18at 09:49; Start 02/28/18 at 10:00 Chlorhexidine Gluconate (Chlorhexidine 2% Cloth) 3 pack ELECTROPLATER PRN TOPICAL SEE LABEL COMMENTS; Start 03/02/18 at 04:30; Stop 03/02/18 at 11:18; Status DC Chlorhexidine Gluconate (Hibiclens 4% Top Soln) 1 applic ELECTROPLATER TOPICAL ; Start 03/01/18 at 11:00; Stop 03/02/18 at 11:18; Status DC Clevidipine 50 ml @ 2 mls/hr TITRATE PRN IV Maintain BP < 140/90 mmHg; Start at 11:45; Stop 03/03/18 at 10:04; Status DC Clopidogrel Bisulfate (Plavix) 75 mg DAILY PO Last administered on 03/05/18at 08: 13; Start 03/03/18 at 09:00 Dexmedetomidine HCl 200 mcg/ Sodium Chloride 52 ml @ 4.3 mls/hr TITRATE PRN IV SEDATION; Start 03/02/18 at 12:00; Stop 03/03/18 at 10:04; Status DC Dextrose (D50w (Vial) Inj) 50 ml UNSCH PRN IV PUSH HYPOGLYCEMIA-SEE COMMENTS; Start 03/03/18 at 10:00 Diazepam (Valium) 5 mg ELECTROPLATER PO ; Start 02/28/18 at 15:00; Stop 03/02/18 at 11: 18; Status DC Diltiazem HCl (Cardizem Cd) 240 mg DAILY PO Last administered on 03/05/18at 08:14 ; Start 02/28/18 at 09:00 Diltiazem HCl (Cardizem Inj) 30 mg BOLUS ONCE IV PUSH ; Start 02/28/18 at 02:30 ; Stop 02/28/18 at 02:31; Status DC Diltiazem HCl 125 mg/Sodium Chloride 125 ml @ 5 mls/hr TITRATE PRN IV tachycardia Last administered on 02/28/18at 02:12; Start 02/28/18 at 02:00; Stop at 07:51; Status DC Diphenhydramine HCl (Benadryl) 50 mg ELECTROPLATER PO ; Start 02/28/18 at 15:00; Stop 03/04/18 at 14:59; Status DC Dobutamine HCl/ Dextrose 250 ml @ 12.42 mls/ hr Q20H8M PRN IV Rate change per MD; Start 03/02/18 at 12:00; Stop 03/03/18 at 10:04; Status DC Docusate Sodium (Colace) 100 mg BID PO Last administered on 03/05/18at 08:13; Start 03/03/18 at 21:00 Dopamine HCl/ Dextrose 500 ml @ 9.315 mls/ hr TITRATE PRN IV Maintain MAP > 65 mmHg; Start 03/02/18 at 12:00; Stop 03/03/18 at 10:04; Status DC Fentanyl Citrate (fentaNYL INJ) 25 mcg Q1H PRN IV PUSH BREAKTHROUGH PAIN Last administered on 03/02/18at 17:47; Start 03/02/18 at 11:45; Stop 03/05/18 at 11:07; Status DC Furosemide (Lasix Inj) 40 mg ONCE ONCE IV PUSH ; Start 03/05/18 at 11:15; Stop 03/05/18 at 11:16; Status UNV Glucagon (Glucagon Inj) 1 mg UNSCH PRN OTHER HYPOGLYCEMIA-SEE COMMENTS; Start 03/03/18 at 10:00 Guaifenesin (Mucinex Er) 600 mg BID PO Last administered on 03/05/18at 08:14; Start 03/01/18 at 12:30; Stop 03/05/18 at 11:07; Status DC Heparin Sodium (Porcine) (Heparin Inj) 2,500 units UNSCH PRN IV PUSH APTT 25 TO 39 Last administered on 03/01/18at 19:24; Start 02/28/18 at 17:45; Stop 03/02/18 at 11:18; Status DC Heparin Sodium/ Dextrose 250 ml @ 10 mls/hr TITRATE PRN IV Coagulation Management Last administered on 03/01/18at 11:12; Start 02/28/18 at 11:45; Stop 03/02/18 at 11:18; Status DC Hydralazine HCl (Apresoline Inj) 10 mg Q4H PRN IV PUSH SEE LABEL COMMENTS; Start 03/02/18 at 12:00 Influenza Virus Vaccine (Flu (Quadrivalent) Vaccine Inj) 0.5 ml ONCE ONCE IM Last administered on 03/01/18at 08:51; Start 03/01/18 at 09:00; Stop 03/01/18 at 09: 01; Status DC Insulin Aspart (NovoLOG SUPPLEMENTAL SCALE) 1 ACHS SQ ; Start 03/05/18 at 11:00 Insulin Detemir (Levemir Inj) 5 units Q12HR SQ Last administered on 03/01/18at 20 :14; Start 03/01/18 at 21:00; Stop 03/02/18 at 12:19; Status DC Insulin Human Regular 100 units/ Sodium Chloride 100 ml @ 3 mls/hr TITRATE PRN IV for blood glucose control; Start 03/02/18 at 12:00; Stop 03/03/18 at 10:04; Status DC Ketorolac Tromethamine (Toradol Inj) 15 mg Q6H PRN IV PUSH SEE LABEL COMMENTS Last administered on 03/02/18at 21:43; Start 03/02/18 at 12:00; Stop 03/04/18 at 11: 59; Status DC Labetalol HCl (Trandate Inj) 10 mg Q6H PRN IV PUSH SEE LABEL COMMENTS; Start at 19:45; Stop 03/02/18 at 11:18; Status DC Lactated Ringer's 500 ml @ 500 mls/hr Q1H PRN IV SEE LABEL COMMENTS; Start 03/02 at 11:45; Stop 03/03/18 at 10:04; Status DC Lactulose (Lactulose Liq) 30 ml DAILY PRN PO SEVERE CONSITIPATION/ IF PO; Start 02/28/18 at 03:30 Lisinopril (Prinivil) 20 mg DAILY PO ; Start 03/05/18 at 11:15 Magnesium Hydroxide (Milk Of Magnesia Liq) 30 ml DAILY PO Last administered on 03/05/18at 08:13; Start 03/04/18 at 09:00 Magnesium Sulfate 2 gm/Sodium Chloride 104 ml @ 50 mls/hr UNSCH PRN IV SEE LABEL COMMENTS; Start 03/02/18 at 12:00; Stop 03/05/18 at 11:07; Status DC Meperidine HCl (Demerol Inj) 12.5 mg Q4H PRN IV PUSH SEE LABEL COMMENTS; Start 03/02/18 at 12:00; Stop 03/05/18 at 11:07; Status DC Metoprolol Tartrate (Lopressor Inj) 2.5 mg Q1H PRN IV PUSH SEE LABEL COMMENTS; Start 03/02/18 at 12:00; Stop 03/05/18 at 11:07; Status DC Metoprolol Tartrate (Lopressor) 50 mg BID PO Last administered on 03/05/18at 08: 17; Start 03/04/18 at 21:00 Miscellaneous Information (Post-op Orders (for Pharmacy)) STAT ONCE OTHER ; Start 03/02/18 at 12:00; Stop 03/02/18 at 12:03; Status DC Morphine Sulfate (Morphine Inj) 1 mg Q10M PRN IV PUSH PAIN SCALE 1 TO 5; Start 03/02/18 at 11:45; Stop 03/05/18 at 11:07; Status DC Multivitamins/ Minerals Therapeutic (Theragran M Tab) 1 tab DAILY PO Last administered on 03/05/18at 08:13; Start 03/04/18 at 09:00 Naloxone HCl (Narcan Inj) 0.4 mg UNSCH PRN IV PUSH SEE LABEL COMMENTS; Start at 03:30; Stop 03/05/18 at 11:07; Status DC Nitroglycerin (Nitroglycerin 2% Oint) 0.5 inch Q6HR TOPICAL Last administered on 03/02/18at 05:22; Start 02/28/18 at 18:00; Stop 03/02/18 at 11:18; Status DC Nitroglycerin/ Dextrose 250 ml @ 1.5 mls/hr TITRATE PRN IV Maintain BP < 140/ 90 mmHg; Start 03/02/18 at 11:30; Stop 03/03/18 at 10:04; Status DC Ondansetron HCl (Zofran Inj) 4 mg Q6H PRN IV PUSH NAUSEA OR VOMITING; Start 03/02/18 at 11:15 Pantoprazole Sodium (Protonix) 40 mg DAILY@06 PO Last administered on 03/05/18at 05:00; Start 03/03/18 at 06:00 Papaverine HCl 60 mg/Nitroglycerin 100 mcg/Diltiazem HCl 100 mg/Sodium Chloride 100 ml @ 0 mls/hr ELECTROPLATER IRRIGATION ; Start 03/01/18 at 11:00; Stop 03/01/18 at 16:39; Status DC Papaverine HCl 60 mg/Nitroglycerin 100 mcg/Verapamil HCl 100 mg/Sodium Chloride 100 ml @ 0 mls/hr ELECTROPLATER IRRIGATION Last administered on 03/02/18at 08:45; Start 03/01/18 at 16:45; Stop 03/02/18 at 11:18; Status DC Patient Medication Teaching (Coumadin Booklet) 1 ONCE ONCE .XX ; Start 02/28/18 at 16:00; Stop 02/28/18 at 16:01; Status DC Pharmacy Profile Note 0 ml @ 0 mls/hr UNSCH OTHER ; Start 02/28/18 at 08:00; Stop 03/02/18 at 13:36; Status DC Phenylephrine HCl 40 mg/Dextrose 500 ml @ 30 mls/hr TITRATE PRN IV Maintain MAP > 65 mmHg; Start 03/02/18 at 11:30; Stop 03/03/18 at 10:04; Status DC Pneumococcal Polyvalent Vaccine (Pneumovax-23 Inj) 25 mcg ONCE ONCE IM Last administered on 03/01/18at 08:50; Start 03/01/18 at 09:00; Stop 03/01/18 at 09:01; Status DC Polyethylene Glycol (Miralax) 17 gm DAILY PO Last administered on 03/05/18at 08: 18; Start 03/04/18 at 09:00 Potassium Chloride (KCl) 30 meq ONCE ONCE PO ; Start 03/05/18 at 11:15; Stop 03/05/18 at 11:16; Status UNV Povidone Iodine (Betadine 5% Antisepsis Kit) 1 applic ELECTROPLATER PRN EACH NARE SEE LABEL COMMENTS; Start 03/02/18 at 04:30; Stop 03/05/18 at 04:29; Status DC Racepinephrine (Racepinephrine 2.25% Neb) 0.5 ml UNSCH X1 PRN NEB STRIDOR; Start 03/02/18 at 12:00; Stop 03/05/18 at 11:07; Status DC Senna/Docusate Sodium (Annette-Colace) 1 tab BID PO Last administered on 03/03/18at 09:00; Start 02/28/18 at 09:00; Stop 03/03/18 at 11:07; Status DC Sennosides (Senokot) 8.6 mg HS PO Last administered on 03/04/18at 20:21; Start at 21:00 Sodium Biphosphate/ Sodium Phosphate (Fleets Enema (Adult)) 118 ml UNSCH PRN RECTAL SEE LABEL COMMENTS; Start 03/03/18 at 10:00 Sodium Bicarbonate (Sodium Bicarbonate 8.4% Inj) 100 meq UNSCH PRN IV PUSH SEE LABEL COMMENTS; Start 03/02/18 at 12:00; Stop 03/05/18 at 11:07; Status DC Sodium Chloride (NS Flush) 2 ml UNSCH PRN IV FLUSH FLUSH AFTER USING IV ACCESS ; Start 03/02/18 at 11:15 Vancomycin HCl 1250 mg/Sodium Chloride 250 ml @ 166.667 mls/hr Q12H IV Last administered on 03/03/18at 20:00; Start 03/02/18 at 20:00; Stop 03/03/18 at 21:29; Status DC Warfarin Sodium (Coumadin) 5 mg DAILY@1600 PO ; Start 02/28/18 at 16:00; Stop 03/02/18 at 11:18; Status DC A/P Problem List: (1) Atrial fibrillation with RVR ICD Code: I48.91 - Unspecified atrial fibrillation Status: Acute (2) CHF (congestive heart failure) ICD Code: I50.9 - Heart failure, unspecified Status: Acute (3) Diabetes ICD Code: E11.9 - Type 2 diabetes mellitus without complications Status: Acute (4) COPD (chronic obstructive pulmonary disease) ICD Code: J44.9 - Chronic obstructive pulmonary disease, unspecified Status: Acute Assessment and Plan A/P Atrial fibrillation with rapid ventricular response with associated dyspnea and chest pain NSTEMI -Had cardiac catheterization on March 01 with three vessel disease- -echo with EF 60%. -CT surgery consulted and underwent CABG -continue aspirin,plavix, metoprolol,amiodarone, cardizem and statin. -management per CT surgery. Community acquired pneumonia - Chest x-ray reviewed showing diffuse interstitial infiltrates. treated with antibiotics. - Supplemental O2 as needed, keep sats above 92%. Currently on 2LNC. Continue to monitor. Type 2 diabetes mellitus, chronic: Accu-Chek before meals at bedtime, sliding scale, cover as needed. Monitor BGM trends. Hemoglobin a1c 8.5. Hypertension, chronic: Continue home JOLANTA inhibitor. Monitor BP trends. COPD not in exacerbation Tobaccoism - Duonebs as needed for wheezing. - Encouraged cessation. Nicotine patch offered. Problem Qualifiers (1) CHF (congestive heart failure): Qualified Codes: I50.9 - Heart failure, unspecified (2) COPD (chronic obstructive pulmonary disease): Qualified Codes: J44.9 - Chronic obstructive pulmonary disease, unspecified Gentry Boyce MD Mar 05, 2018 11:18
[2018-03-05] MEDS: LISINOPRIL 20 MG TAB PO SCH (12:13)
[2018-03-05 12:15] LABS: BICARBONATE 24.1 MEQ/L (21.0-32.0); CALCIUM 8.3 MG/DL (8.5-10.1); CREATININE 0.94 MG/DL (0.60-1.30); MAGNESIUM 2.1 MG/DL (1.5-2.5)
--- NOTE | 2018-03-05 15:56 | EKG ---
Date Performed: 03/04/2018 Time Performed: 09:10:18 PTAGE: 57 years EKG: Atrial fibrillation with rapid ventricular response Compared to previous tracing, previous EKG showed PVCs. Patient is also now in atrial fibrillation. Prior EKG showed Sinus rhythm Abnormal ECG PREVIOUS TRACING : 03/03/2018 03.44 DOCTOR: Jorge Sauer Interpretating Date/Time 03/05/2018 15:55:34
[2018-03-05] MEDS: metFORMIN HCL 500 MG TAB PO SCH (17:43)
[2018-03-05] MEDS: DEXAMETHASONE SOD PHOS 4 MG/ML VIAL IV PUSH SCH ×2 (17:43→23:46)
[2018-03-05] MEDS: glipiZIDE 5 MG TAB PO SCH (17:43)
[2018-03-05] MEDS: ATORVASTATIN 20 MG TAB PO SCH (22:09)
[2018-03-05] MEDS: SENNOSIDES 8.6 MG TAB PO SCH (22:10)
[2018-03-05] MEDS: SODIUM CHLORIDE 0.9% FLUSH 10 ML FLUSH IV FLUSH PRN (23:47)
[2018-03-06] VITALS (27 sets, daily range): BP systolic 106–141; BP diastolic 58–74; PULSE 64–81; RESP 16–20; TEMP 96.2–98.4; O2SAT 97–100
[2018-03-06] MEDS: RESP: ALBUTEROL 2.5 MG/IPRATROPIUM 0.5 MG NEB (SCH) NEB ×2 (03:25→09:02)
[2018-03-06 04:52] LABS: MEAN CELL VOLUME 81.6 FL (80.0-100.0); MEAN CORPUSCULAR HEMOGLOBIN 28.7 PG (27.0-34.0); MEAN CORPUSCULAR HGB CONC 35.2 % (32.0-36.0); MEAN PLATELET VOLUME 8.9 FL (7.0-11.0); PLATELET COUNT 289 TH/MM3 (150-450); RED BLOOD COUNT 4.17 MIL/MM3 (4.50-5.90); RED CELL DISTRIBUTION WIDTH 13.6 % (11.6-17.2); WHITE BLOOD COUNT 9.3 TH/MM3 (4.0-11.0)
[2018-03-06 05:04] LABS: INTERNATIONAL NORMALIZED RATIO 1.1 RATIO; PROTHROMBIN TIME - PATIENT 10.9 SEC (9.8-11.6)
[2018-03-06] MEDS: PANTOPRAZOLE SOD 40 MG DELAYED RELEASE TAB PO SCH (06:04)
[2018-03-06] MEDS: DEXAMETHASONE SOD PHOS 4 MG/ML VIAL IV PUSH SCH (06:05)
[2018-03-06] MEDS: SODIUM CHLORIDE 0.9% FLUSH 10 ML FLUSH IV FLUSH PRN (06:05)
--- NOTE | 2018-03-06 08:33 | HHI.PR ---
Subjective Remarks The patient denies any pain. He has been ambulating without oxygen. He denies any shortness of breath. He has been having bowel movements. Discussed with nursing and physical therapy. Objective Vitals Vital Signs Date Time Temp Pulse Resp B/P (MAP) Pulse Ox O2 Delivery O2 Flow Rate FiO2 03/06/18 04:00 70 03/06/18 03:00 96.4 70 18 135/74 (94) 98 03/06/18 03:00 64 03/06/18 03:00 98 Room Air 21 03/06/18 02:00 68 03/06/18 01:00 68 03/06/18 00:00 76 03/05/18 23:00 98.9 82 20 133/65 (87) 99 03/05/18 23:00 84 03/05/18 23:00 98 Room Air 21 03/05/18 22:00 78 03/05/18 21:58 98 21 03/05/18 21:00 82 03/05/18 20:00 84 03/05/18 19:00 98 Room Air 21 03/05/18 19:00 82 03/05/18 19:00 99.1 86 20 116/81 (93) 97 03/05/18 17:08 80 03/05/18 16:16 84 03/05/18 15:14 97.9 89 18 107/63 (78) 99 03/05/18 15:14 99 Room Air 03/05/18 15:00 78 03/05/18 14:00 82 03/05/18 13:00 82 03/05/18 12:00 76 03/05/18 11:30 96 Room Air 03/05/18 11:30 98.6 89 18 109/60 (76) 96 03/05/18 11:00 74 03/05/18 10:00 70 03/05/18 09:00 74 I/O 03/05/18 03/05/18 03/05/18 03/06/18 03/06/18 03/06/18 07:00 15:00 23:00 07:00 15:00 23:00 Intake Total 720 ml 840 ml 700 ml Output Total 1805 ml 1700 ml 1840 ml Balance -1085 ml -860 ml -1140 ml Intake Oral 720 ml 840 ml 700 ml Output Urine Total 1375 ml 1500 ml 1750 ml Chest Tube Drainage Total 430 ml 200 ml 90 ml # Bowel Movements 1 0 Result Diagram: 03/06/18 0425 03/05/18 1115 Imaging Last Impressions Chest X-Ray 03/03/18 0500 Signed Impressions: Service Date/Time: Saturday, March 03, 2018 05:48 - CONCLUSION: Interval removal of endotracheal tube and nasogastric tube. Lung volumes have decreased with mild patchy bilateral lower lung zone opacity likely representing atelectasis. Derek White MD Lower Extremity Ultrasound 03/01/181409 Signed Impressions: Service Date/Time: February 13:03 - CONCLUSION: 1. Vein mapping as above. Vini Cook MD Chest CT 03/01/181409 Signed Impressions: Service Date/Time: February 15:07 - CONCLUSION: 1. COPD changes. 2. Cardiomegaly with extensive atherosclerotic plaquing in the coronary arteries. 3. Renal stone on the left. Vini Cook MD Carotid Artery Ultrasound 03/01/181409 Signed Impressions: Service Date/Time: February 12:08 - CONCLUSION: Hemodynamic parameters are borderline abnormal and there is evidence of bilateral plaque formation at the common and internal carotid arteries. The borderline abnormality suggest 50-70%% stenoses. Jake Penaloza MD Objective Remarks GENERAL: This is a well-nourished, well-developed patient, in no apparent distress. HEENT: NC, AT. CARDIOVASCULAR: Regular rate and regular rhythm without murmurs, gallops, or rubs. RESPIRATORY: Clear to auscultation. Breath sounds equal bilaterally. No wheezes , rales, or rhonchi. GASTROINTESTINAL: Abdomen soft, non-tender, nondistended. Normoactive bowel sounds. MUSCULOSKELETAL: Extremities without clubbing, cyanosis, or edema. NEURO: Alert & Oriented x4 to person, place, time, situation. Moves all ext x4. PSYCH: Mood and affect appropriate. Procedures 03-01-18 Right radial arterial approach left heart catheterization, left ventriculography, and coronary angiography. DESCRIPTION OF PROCEDURE: The patient was brought to the cardiac catheterization lab in a fasting state. He received 1 mg of IV Versed for additional sedation. The right wrist was prepped and draped in sterile fashion. Using 1% lidocaine for local anesthesia, a 6 1/2-Romansh sheath was placed in the right radial artery and a standard cocktail administered. Coronary angiography was then completed using a [place] catheter. LV pressure was then measured using an angled pigtail catheter, followed by pullback. The sheath was removed with a Terumo band placed. There were no complications. FINDINGS: 1. Hemodynamics: Left ventricular pressure is 144/14 with an end diastolic pressure of 24, aortic pressure is 142/80 with a mean of 104. There was no gradient during pullback from left ventricle to the aorta. 2. Left ventriculography shows global hypokinesis, estimated ejection fraction of 40%. 3. Coronary angiography: The left main coronary artery has 10% irregularities. It bifurcates into the LAD and circumflex vessel. The LAD has a 70% stenosis before a very large arcading diagonal branch. Just past the diagonal branch is a focal 80% stenosis. The LAD is diffusely diseased and has at least 70% stenosis in its midsection. The diagonal branch is severely diffusely diseased, but has a high grade 90% proximal stenosis. Circumflex artery has a 99% stenosis before a small marginal branch. The right coronary artery is large and dominant with diffuse calcification and has an eccentric 60% mid stenosis, 40% distal stenosis and 70% diffuse PDA disease. CONCLUSIONS: 1. Impaired LV function, estimated ejection fraction of 40%. 2. Three vessel coronary artery disease. RECOMMENDATIONS Cardiothoracic surgery consult for bypass surgery. Date of Surgery: Mar 02, 2018 Preoperative Diagnosis: Postoperative Diagnosis: Procedure: 1. Urgent Off-pump Coronary Artery Bypass Grafting x 3 with Left Internal Mammary Artery (CARVALHO) to Left Anterior Descending (LAD), reverse saphenous vein graft to the Diagonal 1 (D1), reverse saphenous vein graft to the Posterolateral Branch of the Right Coronary Artery (RPLB) 2. Left Leg Endoscopic Vein [place] 3. Intraoperative Vein Mapping. Surgeon: Owen Eisenberg Hypo Splasher(s): A Gutierrez Operation and Findings: PREPROCEDURE DIAGNOSES 1. Severe Multi Vessel Coronary Artery Disease. 2. Acute Myocardial Infarction (NSTEMI) 3. Moderate Left Ventricular Dysfunction (EF 40%) POSTPROCEDURE DIAGNOSES Same SURGICAL PROCEDURE 1. Urgent Off-pump Coronary Artery Bypass Grafting x 3 with Left Internal Mammary Artery (CARVALHO) to Left Anterior Descending (LAD), reverse saphenous vein graft to the Diagonal 1 (D1), reverse saphenous vein graft to the Posterolateral Branch of the Right Coronary Artery (RPLB) 2. Left Leg Endoscopic Vein [place] 3. Intraoperative Vein Mapping. SURGEON Owen Eisenberg MD HOUSEHOLD REFRIGERATION MECHANIC Jana Gutierrez PA-C ANESTHESIA General endotracheal MOTHER TESTER GRICELDA Dhillon MD PREPARATION ChloraPrep. COUNTS Needle, sponge, and instrument counts were correct. DRAINS Two 32-Romansh mediastinal tubes. COMPLICATIONS None. INDICATIONS FOR PROCEDURE The patient is a 57-year-old presenting with chest pain and AMI. Patient was noted to have multi-vessel coronary artery disease. The patient is being brought to the operating room for surgical revascularization therapy. PROCEDURE Patient was brought to the operating room and placed supine on the OR table. Following the induction of adequate general endotracheal anesthesia and placement of appropriate monitoring devices, intraoperative vein mapping was performed which revealed marginal but usable-caliber conduit in bilateral thighs. The patient was then prepped and draped in standard sterile fashion. Next, 2500 units of intravenous heparin was given. The left greater saphenous vein was harvested endoscopically. This appeared to be a small but useable- caliber conduit. Simultaneously, a median sternotomy was performed and the left internal mammary artery dissected free off the posterior sternal table. The patient was systemically heparinized and anticoagulation monitored by serial ACT measurements. The internal mammary artery had good pulsatile flow in it and was a good-caliber conduit. The pericardium was then divided in the midline , the cradle created and targets analyzed. At this point, all anastomoses were performed in a beating-heart fashion using the Inmagic stabilizing system. The left internal mammary artery was anastomosed to the mid LAD (1.75 mm) in an end- to-side fashion using 7-0 Prolene. Segment of saphenous vein graft was then anastomosed to a diffusely and heavily calcified D1 (2 mm) in an end-to-side fashion using 7-0 Prolene. The final segment of saphenous vein graft was then anastomosed to the RPLB (1.75 mm) in an end-to-side fashion using 7-0 Prolene. The proximal anastomosis was then constructed to the ascending aorta in a running manner using 6-0 Prolene. All anastomotic sites were inspected and appeared to be hemostatic and patent. Protamine solution was given. Strict hemostasis was assured. The closure was undertaken. 2 chest tubes were placed. The pericardium was reapproximated in the midline. The sternum was approximated using sternal wires. The muscular and fascial layer were then closed in 3 layers. The endoscopic vein harvest site was closed in 2 layers. The patient tolerated the procedure well and was transferred to CVICU in stable condition. Owen Eisenberg MD Medications and IVs Current Medications Medications (Trade) Dose Ordered Sig/Froylan Route Start Time Stop Time Status Last Admin (Senokot) 17.2 mg Q12H PRN PO 02/28/18 03:30 (Lactulose Liq) 30 ml DAILY PRN PO 02/28/18 03:30 (Cardizem Cd) 240 mg DAILY PO 02/28/18 09:00 03/06/18 08:59 (Lipitor) 20 mg HS PO 02/28/18 21:00 03/05/18 22:09 (NS Flush) 2 ml BID IV FLUSH 03/02/18 21:00 03/06/18 09:01 (NS Flush) 2 ml UNSCH PRN IV FLUSH 03/02/18 11:15 03/06/18 06:05 (Aspirin Chew) 81 mg DAILY PO 03/03/18 09:00 03/06/18 09:00 (Plavix) 75 mg DAILY PO 03/03/18 09:00 03/06/18 09:00 (Protonix) 40 mg DAILY@06 PO 03/03/18 06:00 03/06/18 06:04 (Cordarone) 200 mg Q12HR PO 03/02/18 21:00 03/06/18 09:01 (Tylenol) 650 mg Q4H PRN PO 03/02/18 11:45 (Tylenol Supp) 650 mg Q4H PRN RECTAL 03/02/18 11:45 ([place] 5-325 Mg) 1 tab Q3H PRN PO 03/02/18 11:45 03/05/18 22:09 (Zofran Inj) 4 mg Q6H PRN IV PUSH 03/02/18 11:15 (Apresoline Inj) 10 mg Q4H PRN IV PUSH 03/02/18 12:00 (KCl) 40 meq UNSCH PRN PO 03/02/18 12:00 (Duoneb Neb) 1 ampule Q6HR NEB NEB 03/02/18 16:00 03/06/18 09:02 (Duoneb Neb) 1 ampule Q2HR NEB PRN NEB 03/02/18 12:00 (Colace) 100 mg BID PO 03/03/18 21:00 03/06/18 08:59 (Theragran M Tab) 1 tab DAILY PO 03/04/18 09:00 03/06/18 09:01 (Milk Of Magnesia Liq) 30 ml DAILY PO 03/04/18 09:00 03/06/18 08:58 (Dulcolax Supp) 10 mg UNSCH PRN RECTAL 03/03/18 10:00 (Miralax) 17 gm DAILY PO 03/04/18 09:00 03/06/18 08:57 (Senokot) 8.6 mg HS PO 03/03/18 21:00 03/05/18 22:10 (Fleets Enema (Adult)) 118 ml UNSCH PRN RECTAL 03/03/18 10:00 (D50w (Vial) Inj) 50 ml UNSCH PRN IV PUSH 03/03/18 10:00 (Glucagon Inj) 1 mg UNSCH PRN OTHER 03/03/18 10:00 (Lopressor) 50 mg BID PO 03/04/18 21:00 03/06/18 09:01 (NovoLOG SUPPLEMENTAL SCALE) 1 ACHS SQ 03/05/18 11:00 03/06/18 08:57 (Prinivil) 20 mg DAILY PO 03/05/18 11:15 03/06/18 09:01 (Glucotrol) 5 mg TID PO 03/05/18 18:00 03/06/18 09:01 (Glucophage) 1,000 mg BIDPC PO 03/05/18 18:00 03/06/18 09:00 (Decadron Inj) 4 mg Q6HR IV PUSH 03/05/18 18:00 03/06/18 06:05 A/P Problem List: (1) Atrial fibrillation with RVR ICD Code: I48.91 - Unspecified atrial fibrillation Status: Acute (2) CHF (congestive heart failure) ICD Code: I50.9 - Heart failure, unspecified Status: Acute (3) Diabetes ICD Code: E11.9 - Type 2 diabetes mellitus without complications Status: Acute (4) COPD (chronic obstructive pulmonary disease) ICD Code: J44.9 - Chronic obstructive pulmonary disease, unspecified Status: Acute Assessment and Plan Atrial fibrillation with rapid ventricular response/ NSTEMI Had cardiac catheterization on March 01 with three vessel disease. Echo with EF 60%. CT surgery consulted and underwent CABG. - continue aspirin, Plavix, metoprolol, amiodarone, Cardizem and statin. -management per CT surgery. - rehab efforts. Community acquired pneumonia Chest x-ray reviewed showing diffuse interstitial infiltrates. Treated with antibiotics. - Supplemental O2 as needed, keep sats above 92%. - encourage ambulation. Type 2 diabetes mellitus A1c 8.5%. - Accu-Chek before meals at bedtime, sliding scale, cover as needed. Hypertension Chronic. - Continue home JOLANTA inhibitor. Monitor BP trends. COPD/ tobaccoism Not in exacerbation. - Duonebs as needed for wheezing. - Encouraged cessation. Nicotine patch offered. PPx: Per surgery Problem Qualifiers (1) CHF (congestive heart failure): Qualified Codes: I50.9 - Heart failure, unspecified (2) COPD (chronic obstructive pulmonary disease): Qualified Codes: J44.9 - Chronic obstructive pulmonary disease, unspecified Mika Jaquez DO Mar 06, 2018 08:33
[2018-03-06] MEDS: POLYETHYLENE GLYCOL 17 GM PKG PO SCH (08:57)
[2018-03-06] MEDS: INSULIN ASPART SUPPLEMENTAL SCALE SQ SCH ×4 (08:57→21:00)
[2018-03-06] MEDS: MAGNESIUM HYDROXIDE SUSP 30 ML CUP PO SCH (08:58)
[2018-03-06] MEDS: DOCUSATE SODIUM 100 MG CAP PO SCH ×2 (08:59→22:16)
[2018-03-06] MEDS: DILTIAZEM-CD 240 MG CAP ER PO SCH (08:59)
[2018-03-06] MEDS: metFORMIN HCL 500 MG TAB PO SCH ×2 (09:00→17:24)
[2018-03-06] MEDS: CLOPIDOGREL 75 MG TAB PO SCH (09:00)
[2018-03-06] MEDS: ASPIRIN 81 MG CHEW TAB PO SCH (09:00)
[2018-03-06] MEDS: METOPROLOL TARTRATE 50 MG TAB PO SCH ×2 (09:01→22:16)
[2018-03-06] MEDS: glipiZIDE 5 MG TAB PO SCH ×3 (09:01→17:24)
[2018-03-06] MEDS: LISINOPRIL 20 MG TAB PO SCH (09:01)
[2018-03-06] MEDS: AMIODARONE 200 MG TAB PO SCH ×2 (09:01→22:16)
[2018-03-06] MEDS: MULTIVITAMINS/MINERALS THERAPEUTIC TAB PO SCH (09:01)
[2018-03-06] MEDS: SODIUM CHLORIDE 0.9% FLUSH 10 ML FLUSH IV FLUSH SCH ×2 (09:01→22:17)
--- NOTE | 2018-03-06 10:52 | PD.CAR.PN ---
CVT Progress Note Subjective/Hospital Course: 57 yo with DM presenting with chest pain and NSTEMI. Noted to be in atrial fibrillation with RVR. Converted to NSR. Cath with multi-vessel CAD 03/02 SURGICAL PROCEDURE 1. Urgent Off-pump Coronary Artery Bypass Grafting x 3 with Left Internal Mammary Artery (CARVALHO) to Left Anterior Descending (LAD), reverse saphenous vein graft to the Diagonal 1 (D1), reverse saphenous vein graft to the Posterolateral Branch of the Right Coronary Artery (RPLB) 2. Left Leg Endoscopic Vein [place] 3. Left Atrial Appendage Excision 4. Intraoperative Vein Mapping. 03/03 Doing well In NSR Transfer [facility] Ambulate 03/04 Doing well Ambulate in HW Maintain CT for now 03/05 had short episode of afib yesterday, back in NSR still having larger amount of serous drainage from chest tube will leav in , continue pulm toileting labs pending / lasix x 1 03/06 on room air, chest tubes dc without difficulty remains in NSR eval for discharge in am Objective: GENERAL: A&O x 3 SKIN: Warm and dry. prevena dressing to chest , incision intact to left leg HEAD: Normocephalic. EYES: No scleral icterus. No injection or drainage. NECK: Supple, trachea midline. No JVD or lymphadenopathy. CARDIOVASCULAR: Regular rate and rhythm without murmurs, gallops, or rubs. RESPIRATORY: Breath sounds equal bilaterally. No accessory muscle use. GASTROINTESTINAL: Abdomen soft, non-tender, nondistended. MUSCULOSKELETAL: No cyanosis, or edema. BACK: Nontender without obvious deformity. No CVA tenderness. Vital Signs Date Time Temp Pulse Resp B/P (MAP) Pulse Ox O2 Delivery O2 Flow Rate FiO2 03/06/18 10:00 72 03/06/18 09:03 100 21 03/06/18 09:00 78 03/06/18 08:15 Room Air 03/06/18 08:15 98.4 81 16 141/73 (95) 98 03/06/18 08:00 72 03/06/18 07:00 73 03/06/18 04:00 70 03/06/18 03:00 96.4 70 18 135/74 (94) 98 03/06/18 03:00 64 03/06/18 03:00 98 Room Air 21 03/06/18 02:00 68 03/06/18 01:00 68 03/06/18 00:00 76 03/05/18 23:00 98.9 82 20 133/65 (87) 99 03/05/18 23:00 84 03/05/18 23:00 98 Room Air 21 03/05/18 22:00 78 03/05/18 21:58 98 21 03/05/18 21:00 82 03/05/18 20:00 84 03/05/18 19:00 98 Room Air 21 03/05/18 19:00 82 03/05/18 19:00 99.1 86 20 116/81 (93) 97 03/05/18 17:08 80 03/05/18 16:16 84 03/05/18 15:14 97.9 89 18 107/63 (78) 99 03/05/18 15:14 99 Room Air 03/05/18 15:00 78 03/05/18 14:00 82 03/05/18 13:00 82 03/05/18 12:00 76 03/05/18 11:30 96 Room Air 03/05/18 11:30 98.6 89 18 109/60 (76) 96 03/05/18 11:00 74 Labs: Laboratory Tests Test 03/06/18 04:25 White Blood Count 9.3 TH/MM3 (4.0-11.0) Red Blood Count 4.17 MIL/MM3 (4.50-5.90) Hemoglobin 12.0 GM/DL (13.0-17.0) Hematocrit 34.0 % (39.0-51.0) Mean Corpuscular Volume 81.6 FL (80.0-100.0) Mean Corpuscular Hemoglobin 28.7 PG (27.0-34.0) Mean Corpuscular Hemoglobin Concent 35.2 % (32.0-36.0) Red Cell Distribution Width 13.6 % (11.6-17.2) Platelet Count 289 TH/MM3 (150-450) Mean Platelet Volume 8.9 FL (7.0-11.0) Prothrombin Time 10.9 SEC (9.8-11.6) Prothromb Time International Ratio 1.1 RATIO Result Diagram: 03/06/18 0425 03/05/18 1115 Telemetry: NSR (1) Atrial fibrillation with RVR Plan: resolved (2) Coronary artery disease (3) S/P CABG (coronary artery bypass graft) Plan: ASA, statin BB , plavix gentle diuresis OOB ambulate . chest tube dc check CXR in am eval for dc in am (4) Diabetes Plan: insulin sliding scale (5) COPD (chronic obstructive pulmonary disease) Plan: on nebs Problem Qualifiers (1) COPD (chronic obstructive pulmonary disease): Qualified Codes: J44.9 - Chronic obstructive pulmonary disease, unspecified Ce Soto Mar 06, 2018 10:52
[2018-03-06] MEDS: ATORVASTATIN 20 MG TAB PO SCH (22:16)
[2018-03-06] MEDS: SENNOSIDES 8.6 MG TAB PO SCH (22:16)
[2018-03-07] VITALS (17 sets, daily range): BP systolic 28–128; BP diastolic 67–73; PULSE 66–108; RESP 16–20; TEMP 97.6–98.2; O2SAT 98–100
[2018-03-07 04:57] LABS: HEMOGLOBIN 12.6 GM/DL (13.0-17.0); MEAN CELL VOLUME 83.5 FL (80.0-100.0); MEAN CORPUSCULAR HEMOGLOBIN 28.5 PG (27.0-34.0); MEAN CORPUSCULAR HGB CONC 34.1 % (32.0-36.0); PLATELET COUNT 403 TH/MM3 (150-450); RED BLOOD COUNT 4.43 MIL/MM3 (4.50-5.90); RED CELL DISTRIBUTION WIDTH 13.8 % (11.6-17.2); WHITE BLOOD COUNT 20.6 TH/MM3 (4.0-11.0)
[2018-03-07 05:02] LABS: INTERNATIONAL NORMALIZED RATIO 1.1 RATIO; PROTHROMBIN TIME - PATIENT 10.7 SEC (9.8-11.6)
--- NOTE | 2018-03-07 05:14 | RADRPT ---
EXAM DATE/TIME: 03/07/2018 04:00 [place] COMPARISON: CHEST SINGLE AP, March 03, 2018, 5:48. INDICATIONS : Short of breath. MEDICAL HISTORY : Cardiovascular disease. Hypertension Gastroesophageal reflux disease. SURGICAL HISTORY : CABG. Cholecystectomy. ENCOUNTER: Subsequent ACUITY: 4 - 6 days PAIN SCORE: 0/10 LOCATION: Bilateral chest FINDINGS: A single view of the chest demonstrates the lungs to be symmetrically aerated without evidence of mas s, infiltrate or effusion. Cardiomegaly and CABG. The cardiomediastinal contours are unremarkable. O sseous structures are intact. No pneumothorax. Left-sided and mediastinal chest tube removed. CONCLUSION: Cardiomegaly and CABG. Clear lungs. Chaz Mcnulty MD on March 07, 2018 at 5:12 Board Certified Radiologist. This report was verified electronically.
[2018-03-07 05:25] LABS: BICARBONATE 26.5 MEQ/L (21.0-32.0); CALCIUM 8.9 MG/DL (8.5-10.1); CREATININE 1.03 MG/DL (0.60-1.30); MAGNESIUM 2.3 MG/DL (1.5-2.5)
[2018-03-07] MEDS: PANTOPRAZOLE SOD 40 MG DELAYED RELEASE TAB PO SCH (06:15)
[2018-03-07] MEDS ORDERED: HYDR-3516 PO (08:39)
[2018-03-07] MEDS: POLYETHYLENE GLYCOL 17 GM PKG PO SCH (08:52)
[2018-03-07] MEDS: MAGNESIUM HYDROXIDE SUSP 30 ML CUP PO SCH (08:52)
[2018-03-07] MEDS: INSULIN ASPART SUPPLEMENTAL SCALE SQ SCH ×2 (08:52→12:39)
[2018-03-07] MEDS: METOPROLOL TARTRATE 50 MG TAB PO SCH (08:53)
[2018-03-07] MEDS: DILTIAZEM-CD 240 MG CAP ER PO SCH (08:53)
[2018-03-07] MEDS: ASPIRIN 81 MG CHEW TAB PO SCH (08:53)
[2018-03-07] MEDS: MULTIVITAMINS/MINERALS THERAPEUTIC TAB PO SCH (08:53)
[2018-03-07] MEDS: glipiZIDE 5 MG TAB PO SCH ×2 (08:53→12:48)
[2018-03-07] MEDS: AMIODARONE 200 MG TAB PO SCH (08:54)
[2018-03-07] MEDS: CLOPIDOGREL 75 MG TAB PO SCH (08:54)
[2018-03-07] MEDS: metFORMIN HCL 500 MG TAB PO SCH (08:54)
[2018-03-07] MEDS: SODIUM CHLORIDE 0.9% FLUSH 10 ML FLUSH IV FLUSH SCH (08:54)
[2018-03-07] MEDS: LISINOPRIL 20 MG TAB PO SCH (08:54)
[2018-03-07] MEDS: DOCUSATE SODIUM 100 MG CAP PO SCH (08:54)
--- NOTE | 2018-03-07 11:26 | HHI.PR ---
Subjective Remarks The patient was feeling well and looking forward to going home soon. He said he has been ambulating. He has support at home. He had no acute complaints. Discussed with nursing. Objective Vitals Vital Signs Date Time Temp Pulse Resp B/P (MAP) Pulse Ox O2 Delivery O2 Flow Rate FiO2 03/07/18 11:03 98 Room Air 03/07/18 11:03 97.8 67 16 128/73 (91) 98 03/07/18 11:00 67 03/07/18 10:00 66 03/07/18 09:00 74 03/07/18 08:00 72 03/07/18 07:27 97.6 74 16 127/72 (90) 100 03/07/18 07:27 100 Room Air 03/07/18 07:00 66 03/07/18 06:00 70 03/07/18 05:00 69 03/07/18 04:00 98.2 70 20 120/67 (84) 98 03/07/18 04:00 72 03/07/18 03:00 66 03/07/18 03:00 98 Room Air 21 03/07/18 02:00 68 03/07/18 01:00 70 03/07/18 00:00 66 03/06/18 23:00 98 Room Air 21 03/06/18 23:00 78 03/06/18 23:00 96.4 70 20 135/74 (94) 98 03/06/18 22:00 76 03/06/18 21:08 98 21 03/06/18 21:00 76 03/06/18 20:00 76 03/06/18 19:00 98 Room Air 21 03/06/18 19:00 72 03/06/18 19:00 96.2 76 20 106/58 (74) 98 03/06/18 18:00 74 03/06/18 17:00 76 03/06/18 16:00 72 03/06/18 15:44 97.8 72 16 108/59 (75) 97 03/06/18 15:44 97 Room Air 03/06/18 15:00 74 03/06/18 14:00 72 03/06/18 13:00 76 03/06/18 12:00 80 03/06/18 11:41 99 Room Air 03/06/18 11:41 98.0 72 16 115/66 (82) 99 I/O 03/06/18 03/06/18 03/06/18 03/07/18 03/07/18 03/07/18 06:59 14:59 22:59 06:59 14:59 22:59 Intake Total 700 ml 920 ml 350 ml Output Total 1840 ml 1700 ml Balance -1140 ml 920 ml -1350 ml Intake Oral 700 ml 920 ml 350 ml IV Total 0 ml Output Urine Total 1750 ml 1700 ml Chest Tube Drainage Total 90 ml # Voids 3 # Bowel Movements 0 1 0 Result Diagram: 03/07/18 0356 03/07/18 0356 Imaging Last Impressions Chest X-Ray 03/07/18 0600 Signed Impressions: Service Date/Time: Wednesday, March 07, 2018 04:00 - CONCLUSION: Cardiomegaly and CABG. Clear lungs. Chaz Mcnulty MD Lower Extremity Ultrasound 03/01/181409 Signed Impressions: Service Date/Time: February 13:03 - CONCLUSION: 1. Vein mapping as above. Vini Cook MD Chest CT 03/01/181409 Signed Impressions: Service Date/Time: February 15:07 - CONCLUSION: 1. COPD changes. 2. Cardiomegaly with extensive atherosclerotic plaquing in the coronary arteries. 3. Renal stone on the left. Vini Cook MD Carotid Artery Ultrasound 03/01/181409 Signed Impressions: Service Date/Time: February 12:08 - CONCLUSION: Hemodynamic parameters are borderline abnormal and there is evidence of bilateral plaque formation at the common and internal carotid arteries. The borderline abnormality suggest 50-70%% stenoses. Jake Penaloza MD Objective Remarks GENERAL: This is a well-nourished, well-developed patient, in no apparent distress. HEENT: NC, AT. CARDIOVASCULAR: Regular rate and regular rhythm without murmurs, gallops, or rubs. RESPIRATORY: Clear to auscultation. Breath sounds equal bilaterally. No wheezes , rales, or rhonchi. GASTROINTESTINAL: Abdomen soft, non-tender, nondistended. Normoactive bowel sounds. MUSCULOSKELETAL: Extremities without clubbing, cyanosis, or edema. NEURO: Alert & Oriented x4 to person, place, time, situation. Moves all ext x4. PSYCH: Mood and affect appropriate. Procedures 418 Right radial arterial approach left heart catheterization, left ventriculography, and coronary angiography. DESCRIPTION OF PROCEDURE: The patient was brought to the cardiac catheterization lab in a fasting state. He received 1 mg of IV Versed for additional sedation. The right wrist was prepped and draped in sterile fashion. Using 1% lidocaine for local anesthesia, a 6 1/2[place] sheath was placed in the right radial artery and a standard cocktail administered. Coronary angiography was then completed using a [place] catheter. LV pressure was then measured using an angled pigtail catheter, followed by pullback. The sheath was removed with a Terumo band placed. There were no complications. FINDINGS: 1. Hemodynamics: Left ventricular pressure is 144/14 with an end diastolic pressure of 24, aortic pressure is 142/80 with a mean of 104. There was no gradient during pullback from left ventricle to the aorta. 2. Left ventriculography shows global hypokinesis, estimated ejection fraction of 40%. 3. Coronary angiography: The left main coronary artery has 10% irregularities. It bifurcates into the LAD and circumflex vessel. The LAD has a 70% stenosis before a very large arcading diagonal branch. Just past the diagonal branch is a focal 80% stenosis. The LAD is diffusely diseased and has at least 70% stenosis in its midsection. The diagonal branch is severely diffusely diseased, but has a high grade 90% proximal stenosis. Circumflex artery has a 99% stenosis before a small marginal branch. The right coronary artery is large and dominant with diffuse calcification and has an eccentric 60% mid stenosis, 40% distal stenosis and 70% diffuse PDA disease. CONCLUSIONS: 1. Impaired LV function, estimated ejection fraction of 40%. 2. Three vessel coronary artery disease. RECOMMENDATIONS Cardiothoracic surgery consult for bypass surgery. Date of Surgery: Mar 02, 2018 Preoperative Diagnosis: Postoperative Diagnosis: Procedure: 1. Urgent Off-pump Coronary Artery Bypass Grafting x 3 with Left Internal Mammary Artery (CARVALHO) to Left Anterior Descending (LAD), reverse saphenous vein graft to the Diagonal 1 (D1), reverse saphenous vein graft to the Posterolateral Branch of the Right Coronary Artery (RPLB) 2. Left Leg Endoscopic Vein [place] 3. Intraoperative Vein Mapping. Surgeon: Owen Eisenberg Chemical Pumper(s): Memo Gutierrez Operation and Findings: PREPROCEDURE DIAGNOSES 1. Severe Multi Vessel Coronary Artery Disease. 2. Acute Myocardial Infarction (NSTEMI) 3. Moderate Left Ventricular Dysfunction (EF 40%) POSTPROCEDURE DIAGNOSES Same SURGICAL PROCEDURE 1. Urgent Off-pump Coronary Artery Bypass Grafting x 3 with Left Internal Mammary Artery (CARVALHO) to Left Anterior Descending (LAD), reverse saphenous vein graft to the Diagonal 1 (D1), reverse saphenous vein graft to the Posterolateral Branch of the Right Coronary Artery (RPLB) 2. Left Leg Endoscopic Vein [place] 3. Intraoperative Vein Mapping. SURGEON Owen Eisenberg MD TRADING SPECIALIST Jana Gutierrez PA-C ANESTHESIA General endotracheal ANALYTICAL STATISTICIAN Kaylee Arita, GRICELDA Vance MD PREPARATION ChloraPrep. COUNTS Needle, sponge, and instrument counts were correct. DRAINS Two 32-[place] mediastinal tubes. COMPLICATIONS None. INDICATIONS FOR PROCEDURE The patient is a 57-year-old presenting with chest pain and AMI. Patient was noted to have multi-vessel coronary artery disease. The patient is being brought to the operating room for surgical revascularization therapy. PROCEDURE Patient was brought to the operating room and placed supine on the OR table. Following the induction of adequate general endotracheal anesthesia and placement of appropriate monitoring devices, intraoperative vein mapping was performed which revealed marginal but usable-caliber conduit in bilateral thighs. The patient was then prepped and draped in standard sterile fashion. Next, 2500 units of intravenous heparin was given. The left greater saphenous vein was harvested endoscopically. This appeared to be a small but useable- caliber conduit. Simultaneously, a median sternotomy was performed and the left internal mammary artery dissected free off the posterior sternal table. The patient was systemically heparinized and anticoagulation monitored by serial ACT measurements. The internal mammary artery had good pulsatile flow in it and was a good-caliber conduit. The pericardium was then divided in the midline , the cradle created and targets analyzed. At this point, all anastomoses were performed in a beating-heart fashion using the Maquet stabilizing system. The left internal mammary artery was anastomosed to the mid LAD (1.75 mm) in an end- to-side fashion using 7-0 Prolene. Segment of saphenous vein graft was then anastomosed to a diffusely and heavily calcified D1 (2 mm) in an end-to-side fashion using 7-0 Prolene. The final segment of saphenous vein graft was then anastomosed to the RPLB (1.75 mm) in an end-to-side fashion using 7-0 Prolene. The proximal anastomosis was then constructed to the ascending aorta in a running manner using 6-0 Prolene. All anastomotic sites were inspected and appeared to be hemostatic and patent. Protamine solution was given. Strict hemostasis was assured. The closure was undertaken. 2 chest tubes were placed. The pericardium was reapproximated in the midline. The sternum was approximated using sternal wires. The muscular and fascial layer were then closed in 3 layers. The endoscopic vein harvest site was closed in 2 layers. The patient tolerated the procedure well and was transferred to CVICU in stable condition. Owen Eisenberg MD Medications and IVs Current Medications Medications (Trade) Dose Ordered Sig/Froylan Route Start Time Stop Time Status Last Admin (Senokot) 17.2 mg Q12H PRN PO 02/28/18 03:30 (Lactulose Liq) 30 ml DAILY PRN PO 02/28/18 03:30 (Cardizem Cd) 240 mg DAILY PO 02/28/18 09:00 03/07/18 08:53 (Lipitor) 20 mg HS PO 02/28/18 21:00 03/06/18 22:16 (NS Flush) 2 ml BID IV FLUSH 03/02/18 21:00 03/07/18 08:54 (NS Flush) 2 ml UNSCH PRN IV FLUSH 03/02/18 11:15 03/06/18 06:05 (Aspirin Chew) 81 mg DAILY PO 03/03/18 09:00 03/07/18 08:53 (Plavix) 75 mg DAILY PO 03/03/18 09:00 03/07/18 08:54 (Protonix) 40 mg DAILY@06 PO 03/03/18 06:00 03/07/18 06:15 (Cordarone) 200 mg Q12HR PO 03/02/18 21:00 03/07/18 08:54 (Tylenol) 650 mg Q4H PRN PO 03/02/18 11:45 (Tylenol Supp) 650 mg Q4H PRN RECTAL 03/02/18 11:45 ([place] 5-325 Mg) 1 tab Q3H PRN PO 03/02/18 11:45 03/05/18 22:09 (Zofran Inj) 4 mg Q6H PRN IV PUSH 03/02/18 11:15 (Apresoline Inj) 10 mg Q4H PRN IV PUSH 03/02/18 12:00 (KCl) 40 meq UNSCH PRN PO 03/02/18 12:00 (Duoneb Neb) 1 ampule Q2HR NEB PRN NEB 03/02/18 12:00 (Colace) 100 mg BID PO 03/03/18 21:00 03/07/18 08:54 (Theragran M Tab) 1 tab DAILY PO 03/04/18 09:00 03/07/18 08:53 (Milk Of Magnesia Liq) 30 ml DAILY PO 03/04/18 09:00 03/06/18 08:58 (Dulcolax Supp) 10 mg UNSCH PRN RECTAL 03/03/18 10:00 (Miralax) 17 gm DAILY PO 03/04/18 09:00 03/07/18 08:52 (Senokot) 8.6 mg HS PO 03/03/18 21:00 03/06/18 22:16 (Fleets Enema (Adult)) 118 ml UNSCH PRN RECTAL 03/03/18 10:00 (D50w (Vial) Inj) 50 ml UNSCH PRN IV PUSH 03/03/18 10:00 (Glucagon Inj) 1 mg UNSCH PRN OTHER 03/03/18 10:00 (Lopressor) 50 mg BID PO 03/04/18 21:00 03/07/18 08:53 (NovoLOG SUPPLEMENTAL SCALE) 1 ACHS SQ 03/05/18 11:00 03/07/18 08:52 (Prinivil) 20 mg DAILY PO 03/05/18 11:15 03/07/18 08:54 (Glucotrol) 5 mg TID PO 03/05/18 18:00 03/07/18 08:53 (Glucophage) 1,000 mg BIDPC PO 03/05/18 18:00 03/07/18 08:54 A/P Problem List: (1) Atrial fibrillation with RVR ICD Code: I48.91 - Unspecified atrial fibrillation Status: Acute (2) CHF (congestive heart failure) ICD Code: I50.9 - Heart failure, unspecified Status: Acute (3) Diabetes ICD Code: E11.9 - Type 2 diabetes mellitus without complications Status: Acute (4) COPD (chronic obstructive pulmonary disease) ICD Code: J44.9 - Chronic obstructive pulmonary disease, unspecified Status: Acute Assessment and Plan Atrial fibrillation with rapid ventricular response/ NSTEMI Had cardiac catheterization on March 01 with three vessel disease. Echo with EF 60%. CT surgery consulted and underwent CABG. - continue aspirin, Plavix, metoprolol, amiodarone, Cardizem and statin. - management per CT surgery. - rehab efforts. Community acquired pneumonia Chest x-ray reviewed showing diffuse interstitial infiltrates. Treated with antibiotics. - Supplemental O2 as needed, keep sats above 92%. - encourage ambulation. Type 2 diabetes mellitus A1c 8.5%. - Accu-Chek before meals at bedtime, sliding scale, cover as needed. Hypertension Chronic. - Continue home JOLANTA inhibitor. Monitor BP trends. COPD/ tobaccoism Not in exacerbation. - Duonebs as needed for wheezing. - Encouraged cessation. Nicotine patch offered. Leukocytosis Possibly a stress reaction or an erroneous value. CXR 03/07 unremarkable. - repeat CBC. - check a UA. PPx: Per surgery Discharge Planning D/c with C when cleared by CTS Problem Qualifiers (1) CHF (congestive heart failure): Qualified Codes: I50.9 - Heart failure, unspecified (2) COPD (chronic obstructive pulmonary disease): Qualified Codes: J44.9 - Chronic obstructive pulmonary disease, unspecified Mika Jaquez DO Mar 07, 2018 11:26
[2018-03-07 11:30] LABS: BILIRUBIN, URINE NEG (NEG); BLOOD, URINE NEG (NEG); GLUCOSE,URINE NEG (NEG); KETONE, URINE NEG (NEG); NITRITE,URINE NEG (NEG); PH, URINE 6.5 (5.0-8.5); SQUAMOUS EPITHELIAL CELL URINE <1 /hpf (0-5); URINE COLOR YELLOW (YELLW/STRAW); URINE LEUKOCYTE ESTERASE NEG (NEG)
[2018-03-07] MEDS ORDERED: DILT240C44 PO (13:58)
[2018-03-07] MEDS ORDERED: ASPI81 PO (13:58)
[2018-03-07] MEDS ORDERED: NORC5TAB PO (13:58)
[2018-03-07] MEDS ORDERED: THERM PO (13:58)
[2018-03-07] MEDS ORDERED: AMIO200T PO (13:58)
[2018-03-07] MEDS ORDERED: PLAV75TA29 PO (13:58)
[2018-03-07] MEDS ORDERED: METO-309 PO (13:58)
[2018-03-07] MEDS ORDERED: DOCU1CAP39 PO (13:58)
--- NOTE | 2018-03-07 14:08 | HHI.DS ---
Discharge Summary Admission Date Feb 28, 2018 at 12:11 Discharge Date: Mar 07, 2018 Admitting Diagnosis afrvr; chf;copd (1) Atrial fibrillation with RVR ICD Codes: I48.91 - Unspecified atrial fibrillation Status: Resolved (2) CHF (congestive heart failure) ICD Codes: I50.9 - Heart failure, unspecified Status: Resolved (3) Diabetes ICD Codes: E11.9 - Type 2 diabetes mellitus without complications Status: Chronic (4) COPD (chronic obstructive pulmonary disease) ICD Codes: J44.9 - Chronic obstructive pulmonary disease, unspecified Status: Chronic (5) S/P CABG (coronary artery bypass graft) Diagnosis: Secondary ICD Codes: Z95.1 - Presence of aortocoronary bypass graft (6) Coronary artery disease Diagnosis: Principal ICD Codes: I25.10 - Atherosclerotic heart disease of [place] coronary artery without angina pectoris Procedures 03/02 1. Urgent Off-pump Coronary Artery Bypass Grafting x 3 with Left Internal Mammary Artery (CARVALHO) to Left Anterior Descending (LAD), reverse saphenous vein graft to the Diagonal 1 (D1), reverse saphenous vein graft to the Posterolateral Branch of the Right Coronary Artery (RPLB) 2. Left Leg Endoscopic Vein [place] Brief History Subjective/Hospital Course: 57 yo with DM presenting with chest pain and NSTEMI. Noted to be in atrial fibrillation with RVR. Converted to NSR. Cath with multi-vessel CAD 03/02 SURGICAL PROCEDURE 1. Urgent Off-pump Coronary Artery Bypass Grafting x 3 with Left Internal Mammary Artery (CARVALHO) to Left Anterior Descending (LAD), reverse saphenous vein graft to the Diagonal 1 (D1), reverse saphenous vein graft to the Posterolateral Branch of the Right Coronary Artery (RPLB) 2. Left Leg Endoscopic Vein [place] 3. Left Atrial Appendage Excision 4. Intraoperative Vein Mapping. CBC/BMP: 03/07/18 0356 03/07/18 0356 Significant Findings Laboratory Tests Test 03/05/18 04:00 03/05/18 09:36 03/05/18 11:15 03/06/18 04:25 White Blood Count 12.6 TH/MM3 (4.0-11.0) Red Blood Count 4.18 MIL/MM3 (4.50-5.90) 4.17 MIL/MM3 (4.50-5.90) Hemoglobin 12.0 GM/DL (13.0-17.0) 12.0 GM/DL (13.0-17.0) Hematocrit 34.5 % (39.0-51.0) 34.0 % (39.0-51.0) Neutrophils (%) (Auto) 70.3 % (16.0-70.0) Monocytes (%) (Auto) 8.6 % (0.0-8.0) Neutrophils # (Auto) 8.9 TH/MM3 (1.8-7.7) Monocytes # (Auto) 1.1 TH/MM3 (0-0.9) Random Glucose 193 MG/DL (74-106) Calcium Level 8.3 MG/DL (8.5-10.1) Sodium Level 132 MEQ/L (136-145) Estimat Glomerular Filtration Rate 82 ML/MIN (>89) Test 03/07/18 03:56 03/07/18 11:00 03/07/18 13:39 White Blood Count 20.6 TH/MM3 (4.0-11.0) Red Blood Count 4.43 MIL/MM3 (4.50-5.90) Hemoglobin 12.6 GM/DL (13.0-17.0) Hematocrit 37.0 % (39.0-51.0) Blood Urea Nitrogen 19 MG/DL (7-18) Random Glucose 132 MG/DL (74-106) Estimat Glomerular Filtration Rate 74 ML/MIN (>89) Urine Protein 100 mg/dL (NEG-TRACE) Imaging Last Impressions Chest X-Ray 03/07/18 0600 Signed Impressions: Service Date/Time: Wednesday, March 07, 2018 04:00 - CONCLUSION: Cardiomegaly and CABG. Clear lungs. Chaz Mcnulty MD Lower Extremity Ultrasound 03/01/181409 Signed Impressions: Service Date/Time: February 13:03 - CONCLUSION: 1. Vein mapping as above. Vini Cook MD Chest CT 03/01/181409 Signed Impressions: Service Date/Time: February 15:07 - CONCLUSION: 1. COPD changes. 2. Cardiomegaly with extensive atherosclerotic plaquing in the coronary arteries. 3. Renal stone on the left. Vini Cook MD Carotid Artery Ultrasound 03/01/181409 Signed Impressions: Service Date/Time: February 12:08 - CONCLUSION: Hemodynamic parameters are borderline abnormal and there is evidence of bilateral plaque formation at the common and internal carotid arteries. The borderline abnormality suggest 50-70%% stenoses. Jake Penaloza MD PE at Discharge GENERAL: A&O x 3 SKIN: Warm and dry. prevena dressing to chest , incision intact to left leg HEAD: Normocephalic. EYES: No scleral icterus. No injection or drainage. NECK: Supple, trachea midline. No JVD or lymphadenopathy. CARDIOVASCULAR: Regular rate and rhythm without murmurs, gallops, or rubs. RESPIRATORY: Breath sounds equal bilaterally. No accessory muscle use. slightly diminished in bases GASTROINTESTINAL: Abdomen soft, non-tender, nondistended. MUSCULOSKELETAL: No cyanosis, or edema. BACK: Nontender without obvious deformity. No CVA tenderness. Hospital Course 03/03 Doing well In NSR Transfer [facility] Ambulate 03/04 Doing well Ambulate in HW Maintain CT for now 03/05 had short episode of afib yesterday, back in NSR still having larger amount of serous drainage from chest tube will leav in , continue pulm toileting labs pending / lasix x 1 03/06 on room air, chest tubes dc without difficulty remains in NSR eval for discharge in am 03/07 wbc 20K, no fever pt has received 3 doses of Decadron for initially increased chest tube output stable of DC home today / discussed with Hospitalist on room air, remains in NSR Pt Condition on Discharge: Good Discharge Disposition: Disch w/ Home Health Serv Discharge Instructions DIET: Follow Instructions for: Heart Healthy Diet Activities you can perform: Full Weight Bearing, Shower Only-No Bath Activities to avoid: Strenuous Activity, Driving Additional Activity Instructio: no lifting > 8 lbs or gallon of milk Follow up Referrals: Cardiology - 4 Weeks with Teja Grant MD PCP Follow-up - 2 Weeks with [facility] Please call for new patient appointment Surgical - 2 Weeks with Ce Soto New Medications: Hydrocodone-Acetaminophen ([place]) 5 Mg-325 Mg Tab 1 TAB PO Q4H PRN for PAIN, #40 TAB 0 Refills Amiodarone (Amiodarone) 200 Mg Tab 200 MG PO Q12HR for heart rhythm, #28 TAB 0 Refills Aspirin (Tgt Aspirin) 81 Mg Chw 81 MG PO DAILY for Blood Clot Prevention, #30 EA 2 Refills Clopidogrel (Plavix) 75 Mg Tab 75 MG PO DAILY for Blood Clot Prevention, #30 TAB 2 Refills Diltiazem CD 24 HR (Diltiazem CD 24 HR) 240 Mg Caper 240 MG PO DAILY for Broncospasm, #30 CAP 2 Refills Docusate Sodium (Dok) 100 Mg Cap 100 MG PO BID for Constipation, #60 CAP 0 Refills Metoprolol Tartrate (Lopressor) 50 Mg Tab 50 MG PO BID for Blood Pressure Management, #60 TAB 2 Refills Multiple Vitamins W/ Minerals (Thera M Plus) 1 Tab 1 TAB PO DAILY for multi vitamin, #30 TAB 2 Refills Continued Medications: Atorvastatin (Lipitor) 20 Mg Tab 20 MG PO HS for Cholesterol Management, #30 TAB 0 Refills Glipizide (Glucotrol) 5 Mg Tab 5 MG PO TID for Blood Sugar Management, #60 TAB 0 Refills Take 30 minutes before a meal Lisinopril (Lisinopril) 20 Mg Tab 20 MG PO DAILY, #30 TAB 0 Refills Metformin (Metformin) 1,000 Mg Tab 1000 MG PO BIDPC for Blood Sugar Management, #60 TAB 0 Refills Ce Soto Mar 07, 2018 14:08
[2018-03-07 14:09] LABS: BASOPHIL % 0.3 % (0.0-2.0); EOSINOPHIL # 0.1 TH/MM3 (0-0.4); EOSINOPHIL % 0.5 % (0.0-4.0); HEMOGLOBIN 12.6 GM/DL (13.0-17.0); LYMPH % 17.8 % (9.0-44.0); LYMPHOCYTE # 2.9 TH/MM3 (1.0-4.8); MEAN CELL VOLUME 82.8 FL (80.0-100.0); MEAN CORPUSCULAR HEMOGLOBIN 28.9 PG (27.0-34.0); MEAN CORPUSCULAR HGB CONC 34.9 % (32.0-36.0); MEAN PLATELET VOLUME 8.5 FL (7.0-11.0); MONO % 7.9 % (0.0-8.0); MONOCYTE # 1.3 TH/MM3 (0-0.9); NEUT % 73.5 % (16.0-70.0); PLATELET COUNT 378 TH/MM3 (150-450); RED BLOOD COUNT 4.34 MIL/MM3 (4.50-5.90); RED CELL DISTRIBUTION WIDTH 13.9 % (11.6-17.2); WHITE BLOOD COUNT 16.3 TH/MM3 (4.0-11.0)
== END 2018-03-07 15:33 | disposition home health service (06) | DRG 233 ==
LOC: PHED 01:43 → PHEDA 03:30 → PHICU 04:42 → OBSVTOIN 12:11 → HCIS 15:52 → HCVI 03-02 12:00 → HCPC 03-03 10:11
PROVIDERS: ADMIT Hospitalist; ATTEND Hospitalist
PROC: 4A023N7 Measurement of Cardiac Sampling and Pressure, Left Heart, Percutaneous Approach (ICD-10-PCS; 2018-03-01)
PROC: B2111ZZ Fluoroscopy of Multiple Coronary Arteries using Low Osmolar Contrast (ICD-10-PCS; 2018-03-01)
PROC: B2151ZZ Fluoroscopy of Left Heart using Low Osmolar Contrast (ICD-10-PCS; 2018-03-01)
PROC: 021109W Bypass Coronary Artery, Two Arteries from Aorta with Autologous Venous Tissue, Open Approach (ICD-10-PCS; 2018-03-02)
PROC: 06BQ4ZZ Excision of Left Saphenous Vein, Percutaneous Endoscopic Approach (ICD-10-PCS; 2018-03-02)
PROC: 02B70ZK Excision of Left Atrial Appendage, Open Approach (ICD-10-PCS; 2018-03-02)
PROC: 02100Z9 Bypass Coronary Artery, One Artery from Left Internal Mammary, Open Approach (ICD-10-PCS; principal; 2018-03-02 07:04)
DX: I21.4 Non-ST elevation (NSTEMI) myocardial infarction (principal); J18.9 Pneumonia, unspecified organism; I11.0 Hypertensive heart disease with heart failure; I50.9 Heart failure, unspecified; J44.0 Chronic obstructive pulmonary disease with (acute) lower respiratory infection; J44.9 Chronic obstructive pulmonary disease, unspecified; I25.10 Atherosclerotic heart disease of native coronary artery without angina pectoris; I08.0 Rheumatic disorders of both mitral and aortic valves; E11.9 Type 2 diabetes mellitus without complications; I48.91 Unspecified atrial fibrillation; F17.210 Nicotine dependence, cigarettes, uncomplicated; E78.5 Hyperlipidemia, unspecified; Z86.61 Personal history of infections of the central nervous system; H54.61 Unqualified visual loss, right eye, normal vision left eye; Z79.84 Long term (current) use of oral hypoglycemic drugs; Z80.7 Family history of other malignant neoplasms of lymphoid, hematopoietic and related tissues; Z82.5 Family history of asthma and other chronic lower respiratory diseases; E66.9 Obesity, unspecified; Z68.29 Body mass index [BMI] 29.0-29.9, adult; Z23 Encounter for immunization
CPT/HCPCS: 71045; 71250; 76937; 80048; 80053; 80061; 80076; 81001; 82550; 82552; 82948; 83036; 83735; 83880; 84100; 84439; 84443; 84484; 85025; 85027; 85610; 85730; 86850; 86900; 86901; 86920; 87641; 88305; 90686; 90732; 93005; 93306; 93458; 93880; 93970; 93998; 94002; 94010; 94150; 94640; 94664; 94667; 94668; 96365; 96375; 99152; 99153; C1768; C1769; C1893; J0131; J0690; J0696; J1100; J1644; J1815; J1885; J1940; J2250; J2370; J2440; J2720; J3010; J3370; J3475; J3480; J7030; J7050; J7120; Q2038; Q9967

== ENCOUNTER 2018-05-19 21:59 | Emergency (ER) | payer SELFPAY ==
[~2018-05-19] VITALS: Ht 172.7 cm; Wt 87.4 kg
[~2018-05-19 21:59] MED LIST: AMIO200T PO; ASPI81 PO; DILT240C44 PO; DOCU1CAP39 PO; GLIP5 PO; LIPI20TA PO; LISI-515 PO; METF1000 PO; METO-309 PO; NORC5TAB PO; PLAV75TA29 PO; THERM PO
[2018-05-19 22:04] VITALS: BP 152/68; PULSE 91; RESP 20; TEMP 98.4; O2SAT 99
[2018-05-19] MEDS ORDERED: ZITHTAB PO (22:47)
[2018-05-19] MEDS ORDERED: PRED50 PO (22:47)
--- NOTE | 2018-05-19 23:34 | PD ---
HPI . Sinus pressure Chief Complaint: Cold / Flu Symptoms Time Seen by Provider: 22:20 Travel History International Travel<30 days: No Contact w/Intl Traveler<30days: No Traveled to known affect area: No History of Present Illness HPI Patient presents with a one-week history of sinus pressure. It is getting worse rather than better. He has been treating it with nasal lavage. He denies fever. He denies any purulent sinus drainage. He does state that he has developed some right-sided chest discomfort. 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 He states that he always has drainage from the eye socket. PFSH Past Medical History Arthritis: No Asthma: No Anxiety: No Depression: No Cancer: No Cardiovascular Problems: Yes High Cholesterol: Yes Chest Pain: Yes Congestive Heart Failure: Yes (this admit BNP 303) COPD: No Diabetes: Yes (type 2, takes metformin) Patient Takes Glucophage: Yes Gastrointestinal Disorders: Yes (HX pancreatitis-dont drink ETOH) GERD: Yes Genitourinary: No Hypertension: Yes Immune Disorder: No Implanted Vascular Access Dvce: No Musculoskeletal: Yes Neurologic: Yes Psychiatric: No Reproductive: No Respiratory: No Tetanus Vaccination: < 5 Years Influenza Vaccination: Yes Past Surgical History Abdominal Surgery: Yes (gallbadder removed) Cardiac Surgery: No Endocrine Surgery: No 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 Prednisone 50 Mg Tab 50 Mg PO DAILY 5 Days Lopressor (Metoprolol Tartrate) 50 Mg Tab 50 Mg PO BID Plavix (Clopidogrel Bisulfate) 75 Mg Tab 75 Mg PO DAILY Reported Lisinopril 20 Mg Tab 20 Mg PO DAILY Glucotrol (Glipizide) 5 Mg Tab 5 Mg PO TID Take 30 minutes before a meal Metformin (Metformin HCl) 1,000 Mg Tab 1,000 Mg PO BIDPC Review of Systems Except as stated in HPI: all other systems reviewed are Neg General / Constitutional: No: Fever, Chills Eyes: Positive: Drainage HENT: Positive: Congestion Cardiovascular: Positive: Chest Pain or Discomfort Respiratory: No: Cough, Shortness of Breath Physical Exam Narrative GENERAL: Awake and alert. SKIN: warm/dry. HEAD: Normocephalic. He has a healed scar on the vertex of the right side of his head. EYES: Right eye enucleation. There is purulent drainage from the socket. ENT: Mucous membranes pink and moist. Tenderness to percussion of the maxillary sinuses. NECK: Supple. Full range of motion without pain. No cervical adenopathy. CARDIOVASCULAR: Regular rate and rhythm. Heart sounds are normal. RESPIRATORY: No accessory muscle use. Clear to auscultation. Breath sounds equal bilaterally. Positive right-sided chest wall tenderness. GASTROINTESTINAL: Abdomen soft. Nontender. Bowel sounds present. Nondistended. MUSCULOSKELETAL: No obvious deformities. Normal muscle tone. NEUROLOGICAL: Awake and alert. No obvious cranial nerve deficits. Motor grossly within normal limits. Normal speech. PSYCHIATRIC: Appropriate mood and affect; insight and judgment normal. Data Data Last Documented VS Vital Signs Date Time Temp Pulse Resp B/P (MAP) Pulse Ox O2 Delivery O2 Flow Rate FiO2 05/19/18 22:48 05/19/18 22:17 18 100 Room Air 05/19/18 22:04 98.4 91 Orders Orders Ed Discharge Order (05/19/18 22:47) [facility] Medical Decision Making Medical Screen Exam Complete: Yes Emergency Medical Condition: Yes Differential Diagnosis Differential diagnosis includes but is not limited to influenza, upper respiratory infection, bronchitis, pneumonia Narrative Course This patient presents with sinus congestion. He has been treating himself at home with nasal lavage. His symptoms are getting worse rather than better. On exam, he has tenderness to percussion of the maxillary sinuses. He also has purulent drainage from the right eye. Because of these findings, he will be discharged home with a prescription for prednisone and Zithromax. Diagnosis Primary Impression: Sinus infection Qualified Codes: J01.00 - Acute maxillary sinusitis, unspecified Patient Instructions: General Instructions, Sinusitis (ED) Departure Forms: Tests/Procedures Additional Instructions: I recommend the use of a Neti Pot. You may use a nasal spray such as Afrin for up to 3 days as needed for nasal congestion. You may take an qrla-rri-eluefes antihistamine such as Zyrtec, Jennyfer or Claritin as needed for runny secretions. You may take pseudoephedrine as needed for congestion. You will need to sign for this at the pharmacy. You may take plain Mucinex, 1200 mg twice a day as needed for thick secretions. You may take a cough syrup such as Delsym as needed for cough. Motrin as needed for fever and body aches. Throat lozenges/sprays as needed for sore throat. Warm salt water gargles for sore throat. Hot tea with lemon and honey also helps soothe a sore throat. Scripts Azithromycin (Zithromax Z-Mario) 250 Mg Dspk 250 MG PO DIRECTED for Infection, #1 DSPK 0 Refills 500 MG (2 tabs) day 1, then 1 tab days 2-5. Prov: Nicole Raza MD 05/19/18 Prednisone (Prednisone) 50 Mg Tab 50 MG PO DAILY for 5 Days, #5 TAB 0 Refills Prov: Nicole Raza MD 05/19/18 Disposition: 01 DISCHARGE HOME Condition: Stable Nicole Raza MD May 19, 2018 23:34
== END 2018-05-19 23:01 | disposition home or self-care (01) ==
LOC: PHED 21:59
DX: J01.00 Acute maxillary sinusitis, unspecified (principal); R07.9 Chest pain, unspecified; I11.0 Hypertensive heart disease with heart failure; E11.9 Type 2 diabetes mellitus without complications; Z72.0 Tobacco use
CPT/HCPCS: 99283